=== PATIENT | female | born 1955 | race Caucasian/White ===

== ENCOUNTER 2020-07-21 15:27 | Outpatient (REF) | payer SELFPAY | END 2020-07-21 15:28 | disposition home or self-care (01) | LOC: HO.BBR 15:27 | PROVIDERS: Visit Provider Internal Medicine Medical Oncology | DX: D75.1 Secondary polycythemia (principal) | CPT/HCPCS: 85018 ==

== ENCOUNTER → 2020-07-28 15:38 | Outpatient (BNV) | payer BC, SELFPAY | PROVIDERS: Visit Provider Internal Medicine Medical Oncology | DX: D75.1 Secondary polycythemia (principal) | CPT/HCPCS: 99213; 99214; 99443 ==

== ENCOUNTER 2020-10-20 15:33 | Outpatient (REF) | payer MEDICARE, SELFPAY | END 2020-10-20 15:34 | disposition home or self-care (01) | LOC: HO.BBR 15:33 | PROVIDERS: PCP Physician Assistant; Visit Provider Internal Medicine Medical Oncology | DX: D75.1 Secondary polycythemia (principal) | CPT/HCPCS: 36415; 85018; 99195 ==

== ENCOUNTER 2021-01-26 15:29 | Outpatient (REF) | payer MEDICARE, SELFPAY ==
[2021-01-26 15:49] LABS: MANUAL DIFF FLAG NO
[2021-01-26 15:51] LABS: Basophils Absolute Auto 0.1 X10*3/uL (0.0-0.2); Basophils Percent Auto 0.8 % (0-2); Eosinophils Absolute Auto 0.1 X10*3/uL (0.0-0.4); Eosinophils Percent Auto 0.8 % (0-4); Hematocrit 42.1 % (37-47); Hemoglobin 14.5 g/dl (12.0-16.0); Imm Gran Abs Auto 0.08 X10*3/uL (0.00-0.03); Imm Gran Pct Auto 0.6 % (0.0-0.4); Lymphocytes Absolute Auto 3.1 X10*3/uL (1.2-4.9); Lymphocytes Percent Auto 22.2 % (20-40); Mean Corpuscular HGB Conc 34.4 g/dl (31.0-35.0); Mean Corpuscular Hemoglobin 33.1 pg (27.0-33.0); Mean Corpuscular Volume 96.1 fL (80-98); Mean Platelet Volume 9.6 fL (9.4-12.3); Monocytes Percent Auto 6.9 % (2-11); Neutrophils Absolute Auto 9.5 X10*3/uL (2.0-8.3); Neutrophils Percent Auto 68.7 % (45-73); Platelet Count 335 X10*3/uL (160-400); Red Blood Count 4.38 X10*6/uL (4.20-5.50); Red Cell Distribution Width 12.5 % (11.0-16.0); White Blood Count 13.8 X10*3/uL (4.8-10.8)
[2021-01-26 16:20] LABS: Alanine Aminotransferase 11 U/L (0-31); Albumin Level 4.1 g/dL (3.5-5.0); Alkaline Phosphatase 109 U/L (39-117); Anion Gap 15 (12-20); Aspartate Amino Transferase 15 U/L (5-31); Bilirubin Total 0.5 mg/dL (0.0-1.0); Blood Urea Nitrogen 12 mg/dL (9-16); Calcium 9.4 mg/dL (8.4-10.2); Carbon Dioxide 23 mmol/L (22-29); Chloride 104 mmol/L (96-108); Estimated Glomerular Filt Rate > 60; Glucose Random 130 mg/dL (60-115); Iron 92 mcg/dL (30-160); Percent Iron Saturation 29 % (15-50); Potassium 3.6 mmol/L (3.3-5.1); Sodium 138 mmol/L (135-145); Total Iron Binding Capacity 322 mcg/dL (228-428); Total Protein 6.8 g/dL (6.5-8.0); Unsaturated Iron Binding 230 ug/dL
[2021-01-26 16:40] LABS: Ferritin 73 ng/mL (10-250)
== END 2021-01-26 15:30 | disposition home or self-care (01) ==
LOC: HO.BBR 15:29
PROVIDERS: PCP Physician Assistant; Visit Provider Internal Medicine Medical Oncology
DX: D75.1 Secondary polycythemia (principal)
CPT/HCPCS: 36415; 80053; 82728; 83540; 85014; 85018; 85025; 99195

== ENCOUNTER 2021-05-04 15:20 | Outpatient (REF) | payer MEDICARE, SELFPAY | END 2021-05-04 15:21 | disposition home or self-care (01) | LOC: HO.BBR 15:20 | PROVIDERS: PCP Physician Assistant; Visit Provider Internal Medicine Medical Oncology | DX: D75.1 Secondary polycythemia (principal) | CPT/HCPCS: 85018; 99195 ==

== ENCOUNTER 2021-08-10 08:46 | Outpatient (REF) | payer MEDICARE, SELFPAY | END 2021-08-10 08:47 | disposition home or self-care (01) | LOC: HO.BBR 08:46 | PROVIDERS: Visit Provider Internal Medicine Medical Oncology | DX: D75.1 Secondary polycythemia (principal); I10 Essential (primary) hypertension; M47.14 Other spondylosis with myelopathy, thoracic region | CPT/HCPCS: 85018; 99195 ==

== ENCOUNTER 2021-11-09 15:31 | Outpatient (REF) | payer MEDICARE, SELFPAY | END 2021-11-09 15:32 | disposition home or self-care (01) | LOC: HO.BBR 15:31 | PROVIDERS: Visit Provider Internal Medicine Medical Oncology | DX: D75.1 Secondary polycythemia (principal) | CPT/HCPCS: 85018; 99195 ==

== ENCOUNTER 2022-05-17 15:02 | Outpatient (REF) | payer MEDICARE, SELFPAY | END 2022-05-17 15:03 | disposition home or self-care (01) | LOC: HO.BBR 15:02 | PROVIDERS: Visit Provider Internal Medicine Medical Oncology | DX: D75.1 Secondary polycythemia (principal) | CPT/HCPCS: 85018; 99195 ==

== ENCOUNTER 2022-09-04 12:01 | Outpatient (REF) | payer MEDICARE, SELFPAY | END 2022-09-04 12:02 | disposition home or self-care (01) | LOC: HO.BBR 12:01 | PROVIDERS: PCP Physician Assistant; Visit Provider Internal Medicine Medical Oncology | DX: D75.1 Secondary polycythemia (principal) | CPT/HCPCS: 85018 ==

== ENCOUNTER 2022-12-03 13:44 | Outpatient (REF) | payer MEDICARE, SELFPAY | END 2022-12-03 13:45 | disposition home or self-care (01) | LOC: HO.BBR 13:44 | PROVIDERS: PCP Physician Assistant; Visit Provider Internal Medicine Medical Oncology | DX: D75.1 Secondary polycythemia (principal) | CPT/HCPCS: 85014; 85018; 99195 ==

== ENCOUNTER 2023-01-01 11:49 | Outpatient (REF) | payer MEDICARE, SELFPAY ==
--- NOTE | ~2023-01-01 | MM_ITS ---
EXAMINATION: MM SCREENING DIGITAL BREAST TOMOSYNTHESIS, BILATERAL CLINICAL INFORMATION: Screening. Asymptomatic. The lifetime risk of breast cancer based on the Tyrer-Cuzick Model is 5%. COMPARISON: Mammography: 11/19/2018, 10/10/2017, 10/04/2016 TECHNIQUE: Digital breast tomosynthesis is performed in both the craniocaudal and mediolateral oblique views along with computer-aided detection (CAD). Synthesized 2D images are generated from the tomosynthesis. FINDINGS: There are scattered areas of fibroglandular density (ACR BI-RADS breast composition Category b). There are no significant masses, abnormal calcifications, or other abnormalities. Parenchymal pattern is similar to prior studies. There is no developing density or architectural abnormality. The axilla and skin contours are unremarkable. No significant changes. MM/MM tomosynthesis screening BI IMPRESSION: No mammographic evidence of malignancy. ASSESSMENT: BI-RADS 1: Negative RECOMMENDATION: Routine annual mammography screening. This patient's information was entered into a reminder system with a target due date for their next mammogram.
== END 2023-01-01 11:50 | disposition home or self-care (01) ==
LOC: HO.MAMMO 11:49
PROVIDERS: PCP Physician Assistant; Visit Provider Physician Assistant
DX: Z12.31 Encounter for screening mammogram for malignant neoplasm of breast (principal)
CPT/HCPCS: 77063; 77067

== ENCOUNTER → 2023-02-04 14:42 | Outpatient (BNVA) | payer MEDICARE, SELFPAY | PROVIDERS: Visit Provider Physician Assistant | DX: Z12.11 Encounter for screening for malignant neoplasm of colon (principal); K52.9 Noninfective gastroenteritis and colitis, unspecified; R10.32 Left lower quadrant pain | CPT/HCPCS: 99202 ==

== ENCOUNTER 2023-02-06 12:49 | Outpatient (REF) | payer MEDICARE, SELFPAY ==
--- NOTE | ~2023-02-06 | US_ITS ---
EXAMINATION: US THYROID CLINICAL INFORMATION: Prior abnormal imaging. COMPARISON: None available. TECHNIQUE: Linear transducer grayscale and color Doppler examination with attention to the region of the thyroid. FINDINGS: SIZE: Measurements of the thyroid lobes and nodules are given in sagittal, anteroposterior and transverse dimensions respectively. Right Thyroid Lobe: 4.2 x 1.6 x 2.2 cm, volume 7.8 mL. Parenchyma: The gland echotexture is homogeneous. Thyroid vascularity is normal. Left Thyroid Lobe: 4.8 x 1.2 x 1.6 cm, volume 4.6 mL. Parenchyma: The gland echotexture is homogeneous. Thyroid vascularity is normal. Isthmus: 0.6 cm in maximum AP dimension. No significant thyroid nodule. NODES: No lymphadenopathy is seen in the tissue surrounding the thyroid gland. US/US thyroid IMPRESSION: No significant thyroid nodule. ACR TI-RADS RECOMMENDATION REFERENCE: Ultrasound-guided fine-needle aspiration, followup ultrasound, no further follow up. * TR1 (0 point) and TR2 (2 points): No FNA or follow up. * TR3 (3 points): FNA if more than or equal to 2.5 cm in maximum dimension, followup ultrasound in 1, 3 and 5 years if 1.5 to 2.4 cm in maximum dimension. * TR4 (4-6 points): FNA if more than or equal to 1.5 cm in maximum dimension, followup ultrasound in 1, 2, 3 and 5 years if 1 to 1.4 cm in maximum dimension. * TR5 (more than or equal to 7 points): FNA if more than or equal to 1 cm in maximum dimension, followup ultrasound every year for 5 years if 0.5 to 0.9 cm in maximum dimension. * TR3, TR4 or TR5 nodules that are below the size threshold for followup receive no follow up.
== END 2023-02-06 12:50 | disposition home or self-care (01) ==
LOC: HO.US 12:49
PROVIDERS: PCP Physician Assistant; Visit Provider Physician Assistant
DX: E04.1 Nontoxic single thyroid nodule (principal); C06.9 Malignant neoplasm of mouth, unspecified; M54.2 Cervicalgia
CPT/HCPCS: 76536

== ENCOUNTER 2023-03-04 13:47 | Outpatient (REF) | payer MEDICARE, SELFPAY | END 2023-03-04 13:48 | disposition home or self-care (01) | LOC: HO.BBR 13:47 | PROVIDERS: PCP Physician Assistant; Visit Provider Internal Medicine Medical Oncology | DX: D75.1 Secondary polycythemia (principal) | CPT/HCPCS: 85018; 99195 ==

== ENCOUNTER 2023-03-12 11:42 | Outpatient (AMB) | payer MEDICARE, SELFPAY ==
[2023-03-12 11:46] VITALS: BP 128/70; PULSE 78; O2SAT 97; BMI 27.5
--- NOTE | 2023-03-12 11:46 | MHC.PC.OV ---
Vital Signs 03/12/23 11:46 Height 5 ft Weight 141 lb BMI 27.5 BP 128/70 Blood Pressure Location Lt brachial Position Sitting Pulse 78 Pulse Source Pulse Oximeter Temp Source Skin Pulse Oximetry (%) 97 Oxygen Delivery Method Room Air Intake Visit Reasons: diverticulitis F/U Computational Sciences Professor Required: No Allergies latex [LATEX] Allergy (Unknown, Verified 03/12/23 11:49) HIVES/RASH morphine [MORPHINE] Allergy (Unknown, Verified 03/12/23 11:49) HIVES, rash powder in latex gloves Allergy (Unknown, Uncoded 03/12/23 11:49) rash Tobacco use date assessed: 11/21/22 Dental Screening Dental Screen Date: 03/12/23 Did you have a dental visit in the last 12 months?: Yes Did you have a dental problem in the last 6 months where you did not have access to dental care?: No Was dental information given to patient?: Patient has dentist HPI HPI Comments History of Present Illness Details 67-year-old female past medical history significant for lumbar disc disease and with rest cytosis, osteopenia hypertension, anxiety and diverticulitis. Patient of Leopoldo Agrawal, patient presents today for emergency room follow-up was seen at [facility] on 02/27/2023 for left lower quadrant abdominal pain white blood cells elevated 14.48, other lab work unremarkable. Patient was treated with Augmentin for diverticulitis flare. Review of the notes patient has been seen by Gastroenterology in the past for this and was treated with Cipro and Flagyl good effect. Patient states started probiotic. Denies abdominal pain, nauseau, vomitting, constipation and diarrhea. Patient follow with [facility] for oral cancer, Patient states surgery scheduled for 03/21/23. Patient reports cut down to 4 cigarettes a day, to requesting to have a nicotine patch prescribed for following her oral surgery. 7mg transdermal nicotine patches prescribed as requested by patient x2 weeks. [facility] Medical History (Updated 02/18/23 @ 13:46 by Ramon Agrawal PA-C) Diverticulitis HTN (hypertension) Nicotine dependence, cigarettes, uncomplicated Osteopenia (~2015) Polycythemia Surgical History History of lumbar laminectomy History of mandibular surgery History of total left hip replacement Family History Father Diabetes HTN (hypertension) Mother HTN (hypertension) Asthma Sister Afib CVA (cerebral vascular accident) Social History Household Members: Family and Children Housing: House Are you a primary children's zoo caretaker to a significant other at home: No Do you presently have visiting nurse or other home services: No Alcohol intake: current Alcohol intake frequency: a few times a week Alcohol type: beer Patient Tobacco Use Status: Current everyday Tobacco user Tobacco use type: Cigarette Cigarette Packs Per Day: 1 Cigarettes Per Day: 10 e-Cigarette/Vaping Use: Never Used Second Hand Smoke Exposure: Yes service: No Current occupational status: employed 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 How often do you have a drink containing alcohol?: Never 2. How many drinks containing alcohol do you have on a typical day when you are drinking?: 1 or 2 3. How often do you have six or more drinks on one occasion?: Never Total Score: 0 MARY-7 AMB Questionnaire MARY-7 Date MARY - 7 assessed: 11/21/22 Source: Developed by Drs. Amadou Weber, Cecille Oshea, Tan Bello and colleagues, with an educational kiel from [employer]. Review of Systems Const Denies chills, Denies fatigue, Denies fever(s) and Denies poor appetite Eyes Denies no additional complaints ENT Reports Normal hearing present Card Denies chest pain, Denies syncope, Denies rapid heart rate and Denies dyspnea Resp Denies cough and Denies dyspnea GI Denies change in stool character, Denies constipation, Denies diarrhea, Denies nausea and Denies vomiting Denies urinary frequency, Denies dysuria and Denies urinary urgency Neuro Reports Normal hearing present, Denies confusion and Denies syncope Psych Denies confusion Endo Denies fatigue Physical exam (Primary Care) Vital Signs: Oxygen Delivery Method Room Air 03/12/23 11:46 BMI result Body Mass Index 27.5 Tobacco/Smoking Status: Tobacco use Status Tobacco use date assessed 11/21/22 11/21/22 08:48 Patient Tobacco Use Status Current everyday Tobacco 11/21/22 08:48 Tobacco use type Cigarette 11/21/22 08:48 e-Cigarette/Vaping Use Never Used 11/21/22 08:48 Thrive Assessment: Date of Thrive Assessment Date Thrive assessed 11/21/22 11/21/22 08:48 Const General: No confusion Orientation/consciousness: No confusion HENMT Head: Yes normocephalic and Yes atraumatic Eyes Conjunctivae: conjunctivae normal Chest Chest palpation & inspection: normal inspection of the chest Resp Effort & Inspection: normal respiratory effort Auscultation: clear to auscultation bilaterally, no crackles, no rhonchi and no wheezes Cardio Rate: regular rate Rhythm: regular rhythm Heart sounds: S1 normal heart sound present and S2 normal heart sound present GI Inspection: Yes normal to inspection Neuro General: No confusion Cranial nerves: Yes Normal hearing present Extrem General: No edema Assessment and Plan Assessment & Plan (1) Diverticulitis: Code(s): K57.92 - Diverticulitis of intestine, part unspecified, without perforation or abscess without bleeding Plan: Patient denies any left lower quadrant abdominal pain at this time. (2) HTN (hypertension): Code(s): I10 - Essential (primary) hypertension Qualifiers: Hypertension type: primary hypertension Qualified Code(s): I10 - Essential (primary) hypertension Plan: Continue on lisinopril 10 mg daily. Follow low-salt diet and exercise. Blood pressure goal less 140/90. (3) Oral cancer: Code(s): C06.9 - Malignant neoplasm of mouth, unspecified Plan: Continue to follow with [facility]. Plan keep scheduled follow up with pcp. Medications: New nicotine 1 patch transdermal Q24H 14 ea 0RF Z71.6 - Tobacco abuse counseling Coding Level of Care Code Est Pt Level 4 (03505) Diagnoses Diverticulitis K57.92 HTN (hypertension) I10 Hypertension type: primary hypertension Oral cancer C06.9
== END 2023-03-12 14:17 | disposition home or self-care (01) ==
PROVIDERS: PCP Physician Assistant; Visit Provider Nurse Practitioner Family
DX: K57.92 Diverticulitis of intestine, part unspecified, without perforation or abscess without bleeding (principal); I10 Essential (primary) hypertension; C06.9 Malignant neoplasm of mouth, unspecified
CPT/HCPCS: 99214

== ENCOUNTER 2023-04-18 14:32 | Outpatient (AMB) | payer MEDICARE, SELFPAY ==
[2023-04-18 14:41] VITALS: BP 118/60; PULSE 85; RESP 16; O2SAT 98; BMI 27.8
--- NOTE | 2023-04-18 14:41 | A.OFFPC_ITS ---
Vital Signs 04/18/23 14:41 Height 5 ft Weight 142 lb 2 oz BMI 27.8 BP 118/60 Blood Pressure Location Lt brachial Position Sitting Respiration 16 Pulse 85 Pulse Source Pulse Oximeter Pulse Oximetry (%) 98 Oxygen Delivery Method Room Air Intake Visit Reasons: itchy on skin Intake Note: Pt is here for left arm itchy skin for about a month ago, pt feels the arm on fire. Pt has try triamcinolone acetonide cream 1% and it seems to work. Foundation Drill Operator Helper Required: No Accompanied by: Self / Same As Patient Allergies latex [LATEX] Allergy (Unknown, Verified 04/18/23 14:49) HIVES/RASH morphine [MORPHINE] Allergy (Unknown, Verified 04/18/23 14:49) HIVES, rash powder in latex gloves Allergy (Unknown, Uncoded 04/18/23 14:49) rash Tobacco use date assessed: 11/21/22 Fall risk assessment: No Falls in past year Last assessed Fall Risk: 04/18/23 Dental Screening Dental Screen Date: 04/18/23 Did you have a dental visit in the last 12 months?: Yes Did you have a dental problem in the last 6 months where you did not have access to dental care?: No Was dental information given to patient?: Patient has dentist HPI itchy on skin HPI Details Patient is a 67-year-old female here today for problem visit. She reports having left upper arm itchiness and burning over last several weeks. She reports her skin irritation is more notable when exposed to the sun. She does report several years ago having a bad sunburn that may have caused neuropathy. She has been using triamcinolone ointment which has been helping to reduce her itchiness and burning sensation over upper arm. Otherwise no rash noted. [facility] Medical History (Updated 04/18/23 @ 15:02 by Ramon Agrawal PA-C) Osteopenia (~2016) Nicotine dependence, cigarettes, uncomplicated Polycythemia Diverticulitis HTN (hypertension) Surgical History History of lumbar laminectomy History of total left hip replacement History of mandibular surgery Family History Father Diabetes HTN (hypertension) Mother HTN (hypertension) Asthma Sister Afib CVA (cerebral vascular accident) Social History Household Members: Family and Children Housing: House Are you a primary transitional care manager to a significant other at home: No Do you presently have visiting nurse or other home services: No Alcohol intake: current Alcohol intake frequency: a few times a week Alcohol type: beer Patient Tobacco Use Status: Current everyday Tobacco user Tobacco use type: Cigarette Cigarette Packs Per Day: 1 Cigarettes Per Day: 10 e-Cigarette/Vaping Use: Never Used Second Hand Smoke Exposure: Yes service: No Current occupational status: employed 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 Amadou Weber, Cecille Oshea, Tan Bello and colleagues, with an educational kiel from [employer]. Review of Systems Const Denies headache(s) Eyes Denies loss of vision ENT Denies vertigo, Denies dizziness, Denies headache(s) and Denies sore throat Card Denies chest pain, Denies leg edema and Denies lightheadedness Resp Denies cough, Denies hemoptysis and Denies wheezing GI Denies abdominal pain, Denies melena, Denies constipation, Denies diarrhea and Denies vomiting Denies urinary frequency, Denies dysuria and Denies urinary urgency Musc Denies arthralgias, Denies joint swelling, Denies numbness and Denies tingling Neuro Denies Abnormal speech present, Denies behavioral changes, Denies vertigo, Denies dizziness, Denies headache(s), Denies loss of vision, Denies memory loss, Denies numbness and Denies tingling Psych Denies anxiety, Denies behavioral changes, Denies depression, Denies memory loss and Denies panic attacks Erasmo/Lymph Denies easy bleeding and Denies easy bruising Aller/Immun Denies wheezing Physical exam (Primary Care) Vital Signs: Last Vital Signs Pulse 85 04/18/23 14:41 Resp 16 04/18/23 14:41 BP 118/60 04/18/23 14:41 Pulse Ox 98 04/18/23 14:41 Oxygen Delivery Method Room Air 04/18/23 14:41 BMI result Body Mass Index 27.8 Tobacco/Smoking Status: Tobacco use Status Tobacco use date assessed 11/21/22 04/18/23 14:51 Patient Tobacco Use Status Current everyday Tobacco 04/18/23 14:51 Tobacco use type Cigarette 04/18/23 14:51 e-Cigarette/Vaping Use Never Used 04/18/23 14:51 Thrive Assessment: Date of Thrive Assessment Date Thrive assessed 11/21/22 04/18/23 14:51 Const General: healthy appearing, no acute distress, alert and awake Nutritional Appearance: well nourished Orientation/consciousness: oriented to person, oriented to place and oriented to time HENMT Ears: TM's normal bilaterally General nose exam: Normal nasal mucous membranes and turbinates present Eyes Conjunctivae: conjunctivae normal Sclerae: sclerae normal Pupils: Equal, round and reactive pupils present Neck Neck: Yes no lymphadenopathy and Yes no JVD Thyroid: Thyroid normal Carotids: no bruits Resp Effort & Inspection: normal respiratory effort and not tachypneic Auscultation: no crackles, no rales, no rhonchi and no wheezes Cardio Rate: regular rate Rhythm: regular rhythm Heart sounds: no murmurs and normal S1 and S2 GI Palpation (GI): Soft to palpation, nontender, no hepatomegaly and no splenomegaly Auscultation: normal bowel sounds Skin General skin exam: no rashes or lesions noted and dry skin Neuro General: oriented to person, oriented to place and oriented to time Cranial nerves: Yes Equal, round and reactive pupils present Speech: No Abnormal speech present Gait exam (Neuro): Normal gait present Motor exam (neuro): no tremor noted Extrem Right upper extremity: full ROM Left upper extremity: full ROM Right lower extremity: full ROM; no edema Left lower extremity: full ROM; no edema Psych Mental Status: mental status grossly normal Speech and movement: Normal speech and movement present Affect: normal affect Attitude: cooperative Thought process: Normal thought process present Assessment and Plan Assessment & Plan (1) Solar urticaria: Code(s): L56.3 - Solar urticaria Plan: Patient's signs and symptoms most consistent with a solar uticaria / neuropathy . Will supply patient with topical steroid to use on localized area of concern. Orders: Referrals Gastroenterology Referral Z12.11 - Encounter for screening for malignant neoplasm of colon Medications: New betamethasone valerate 0.1% 1 appl topical DAILY 15 days PRN 45 grams 0RF skin irritation L56.3 - Solar urticaria Refilled lorazepam 0.5 mg PO BEDTIME 7 days PRN 7 tabs 0RF anxiety F41.9 - Anxiety disorder, unspecified Coding Level of Care Code Est Pt Level 3 (29208) Diagnoses Solar urticaria L56.3
== END 2023-04-18 15:29 | disposition home or self-care (01) ==
PROVIDERS: PCP Physician Assistant; Visit Provider Physician Assistant
DX: L56.3 Solar urticaria (principal)
CPT/HCPCS: 99213

== ENCOUNTER 2023-06-11 13:56 | Outpatient (REF) | payer MEDICARE, SELFPAY | END 2023-06-11 13:57 | disposition home or self-care (01) | LOC: HO.BBR 13:56 | PROVIDERS: PCP Physician Assistant; Visit Provider Internal Medicine Medical Oncology | DX: D75.1 Secondary polycythemia (principal) | CPT/HCPCS: 85018; 99195 ==

== ENCOUNTER 2023-06-25 08:27 | Outpatient (REF) | payer MEDICARE, SELFPAY ==
[2023-06-25 09:38] LABS: Hematocrit 37.4 % (37.0-47.0); Mean Corpuscular HGB Conc 32.1 g/dl (31.0-35.0); Mean Corpuscular Hemoglobin 29.8 pg (27.0-33.0); Mean Corpuscular Volume 92.8 fL (80.0-98.0); Platelet Count 505 X10*3/uL (160-400); Red Blood Count 4.03 X10*6/uL (4.20-5.50); Red Cell Distribution Width 13.2 % (11.0-16.0); White Blood Count 10.9 X10*3/uL (4.8-10.8)
[2023-06-25 10:04] LABS: Creatinine Urine 100.02 mg/dL; Microalbum/Creatinine Ratio Ur 5.9 ug/mg cr (<30)
[2023-06-25 10:06] LABS: Alanine Aminotransferase 11 U/L (0-31); Albumin Level 3.7 g/dL (3.5-5.0); Alkaline Phosphatase 103 U/L (39-117); Anion Gap 9 (12-20); Aspartate Amino Transferase 15 U/L (5-31); Bilirubin Total 0.3 mg/dL (0.0-1.0); Blood Urea Nitrogen 11 mg/dL (9-16); Calcium 9.3 mg/dL (8.4-10.2); Carbon Dioxide 27 mmol/L (22-29); Chloride 108 mmol/L (96-108); Cholesterol 174 mg/dL (<200); Estimated Glomerular Filt Rate > 60; Glucose Fasting 93 mg/dL (60-99); HDL Cholesterol 37 mg/dL (>40); LDL Cholesterol Calculated 116 mg/dL (<100); Potassium 3.7 mmol/L (3.3-5.1); Sodium 140 mmol/L (135-145); Total Protein 6.9 g/dL (6.5-8.0); Triglycerides 106 mg/dL (<150)
== END 2023-06-25 08:28 | disposition home or self-care (01) ==
LOC: HO.LAB 08:27
PROVIDERS: PCP Physician Assistant; Visit Provider Physician Assistant
DX: I10 Essential (primary) hypertension (principal)
CPT/HCPCS: 36415; 80053; 80061; 82043; 82570; 85027

== ENCOUNTER 2023-07-01 14:01 | Outpatient (AMB) | payer MEDICARE, SELFPAY ==
[2023-07-01 14:12] VITALS: BP 150/70; PULSE 80; O2SAT 97; BMI 29.1
--- NOTE | 2023-07-01 14:12 | MHC.PC.OV ---
Vital Signs 07/01/23 14:12 Height 5 ft Weight 149 lb 2 oz BMI 29.1 BP 150/70 H Blood Pressure Location Lt brachial Position Sitting Pulse 80 Pulse Source Pulse Oximeter Pulse Oximetry (%) 97 Oxygen Delivery Method Room Air Intake Visit Reasons: f/u HTN Toll Gate Tender Required: No Accompanied by: Self / Same As Patient Allergies latex [LATEX] Allergy (Unknown, Verified 07/01/23 14:38) HIVES/RASH morphine [MORPHINE] Allergy (Unknown, Verified 07/01/23 14:38) HIVES, rash powder in latex gloves Allergy (Unknown, Uncoded 06/06/23 08:31) rash Medication List - Last Reconciled 07/01/23 by Ramon Agrawal PA-C lisinopril 10 mg PO DAILY nicotine (Nicoderm CQ) 1 patch transdermal Q24H Tobacco use date assessed: 11/21/22 Fall risk assessment: No Falls in past year Last assessed Fall Risk: 07/01/23 Dental Screening Dental Screen Date: 07/01/23 Did you have a dental visit in the last 12 months?: Yes Did you have a dental problem in the last 6 months where you did not have access to dental care?: No Was dental information given to patient?: Patient has dentist HPI f/u HTN HPI Details Patient is a 67 year female here today for routine annual physical t.? Patient has a past medical history significant for hypertension, lumbar disc disease, tobacco use disorder, thrombocytosis.? Invasive carcinoma the mouth-- Undergone treatment. Had a scratchy throat and returned to her oral surgeon the other day and has gotten the scope. She reports her was a small white down the there somewhat concerned about him will be getting a biopsy in near future. .. ?Tobacco use : Unfortunately still smoking very little though understand she really needs to completely quit, PLAN: Supply patient with nicotine replacement gum .. Hypertension:? Continues on lisinopril 10 mg with good effect on her blood pressure.? Patient's blood pressure is slightly elevated today in office though please this is due to being somewhat anxious about finding in her throat., Otherwise denies any chest discomfort, headaches or vision issues [facility] Medical History (Updated 07/02/23 @ 07:43 by Ramon Agrawal PA-C) Solar urticaria Osteopenia (~2015) Nicotine dependence, cigarettes, uncomplicated Polycythemia Diverticulitis HTN (hypertension) Surgical History History of lumbar laminectomy History of total left hip replacement History of mandibular surgery Family History Father Diabetes HTN (hypertension) Mother HTN (hypertension) Asthma Sister Afib CVA (cerebral vascular accident) Social History Household Members: Family and Children Housing: House Are you a primary rn care transition to a significant other at home: No Do you presently have visiting nurse or other home services: No Alcohol intake: current Alcohol intake frequency: a few times a week Alcohol type: beer Patient Tobacco Use Status: Current everyday Tobacco user Tobacco use type: Cigarette Cigarette Packs Per Day: 1 Cigarettes Per Day: 10 e-Cigarette/Vaping Use: Never Used Second Hand Smoke Exposure: Yes service: No Current occupational status: employed 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 Amadou Weber, Cecille Oshea, Tan Bello and colleagues, with an educational kiel from [employer]. Review of Systems Const Denies headache(s) Eyes Denies loss of vision ENT Denies vertigo, Denies dizziness, Denies headache(s) and Denies sore throat Card Denies chest pain, Denies leg edema and Denies lightheadedness Resp Denies cough, Denies hemoptysis and Denies wheezing GI Denies abdominal pain, Denies melena, Denies constipation, Denies diarrhea and Denies vomiting Denies urinary frequency, Denies dysuria and Denies urinary urgency Musc Denies arthralgias, Denies joint swelling, Denies numbness and Denies tingling Neuro Denies Abnormal speech present, Denies behavioral changes, Denies vertigo, Denies dizziness, Denies headache(s), Denies loss of vision, Denies memory loss, Denies numbness and Denies tingling Psych Denies anxiety, Denies behavioral changes, Denies depression, Denies memory loss and Denies panic attacks Erasmo/Lymph Denies easy bleeding and Denies easy bruising Aller/Immun Denies wheezing Physical exam (Primary Care) Vital Signs: Last Vital Signs Pulse 80 07/01/23 14:12 BP 150/70 H 07/01/23 14:12 Pulse Ox 97 07/01/23 14:12 Oxygen Delivery Method Room Air 07/01/23 14:12 BMI result Body Mass Index 29.1 Tobacco/Smoking Status: Tobacco use Status Tobacco use date assessed 11/21/22 07/01/23 14:15 Patient Tobacco Use Status Current everyday Tobacco 07/01/23 14:15 Tobacco use type Cigarette 07/01/23 14:15 e-Cigarette/Vaping Use Never Used 07/01/23 14:15 Are you ready to quit: Yes Tobacco cessation counseling provided: Yes Items discussed: Nicotine replacement Relapse Prevention: discussed the importance of a supportive environment, discussed negative mood or depression after quitting, weight gain after smoking is common and discussed dietary, exercise and/or lifestyle changes Number of minutes spent counselin CPT code: 48617 - 4-10 Minutes Thrive Assessment: Date of Thrive Assessment Date Thrive assessed 11/21/22 07/01/23 14:15 Const General: healthy appearing, no acute distress, alert and awake Nutritional Appearance: well nourished Orientation/consciousness: oriented to person, oriented to place and oriented to time HENMT Ears: TM's normal bilaterally General nose exam: Normal nasal mucous membranes and turbinates present Eyes Conjunctivae: conjunctivae normal Sclerae: sclerae normal Pupils: Equal, round and reactive pupils present Neck Neck: Yes no lymphadenopathy and Yes no JVD Thyroid: Thyroid normal Carotids: no bruits Resp Effort & Inspection: normal respiratory effort and not tachypneic Auscultation: no crackles, no rales, no rhonchi and no wheezes Cardio Rate: regular rate Rhythm: regular rhythm Heart sounds: no murmurs and normal S1 and S2 GI Palpation (GI): Soft to palpation, nontender, no hepatomegaly and no splenomegaly Auscultation: normal bowel sounds Skin General skin exam: no rashes or lesions noted and dry skin Neuro General: oriented to person, oriented to place and oriented to time Cranial nerves: Yes Equal, round and reactive pupils present Speech: No Abnormal speech present Gait exam (Neuro): Normal gait present Motor exam (neuro): no tremor noted Extrem Right upper extremity: full ROM Left upper extremity: full ROM Right lower extremity: full ROM; no edema Left lower extremity: full ROM; no edema Psych Mental Status: mental status grossly normal Speech and movement: Normal speech and movement present Affect: normal affect Attitude: cooperative Thought process: Normal thought process present Office Procedures Flu Questionnaire Does the patient have a severe egg allergy?: No Does the patient have severe life threatening allergies?: No Does the patient have a fever or illness today?: No Has the patient ever had Guillain-[place] Syndrome?: No Has the patient ever had any past reaction to a flu shot?: No Immunizations flu vacc [id number] 6mos up(PF) 60 mcg(15 mcgx4)/0.5 mL IM syringe Performing Provider: Ramon Agrawal PA-C [facility] Administered by: TRE Arias on 07/01/23 14:23 Dose Route Admin Location Dispensed Lot Number Expiration Date NDC Certified Personal Chef 0.5 mL IM Right Deltoid 0.5 mL [id number] 02/09/24 [id number] [employer] VIS Given Date VIS Provided VIS Publication Date 07/01/23 Single Vaccine 21 Eligibility Eligibility Date Funding Source Not [facility] Eligible 07/01/23 Private Assessment and Plan Assessment & Plan (1) HTN (hypertension): Code(s): I10 - Essential (primary) hypertension Qualifiers: Hypertension type: primary hypertension Qualified Code(s): I10 - Essential (primary) hypertension Plan: Blood pressure slightly elevated today in office. She has been anxious about recurrence of her oral cancer. Continue on lisinopril 10 mg daily. Follow low-salt diet and exercise. Blood pressure goal less 140/90. (2) Oral cancer: Code(s): C06.9 - Malignant neoplasm of mouth, unspecified Plan: Biopsy positive for invasive carcinoma. Has underwent surgery. Continue to follow with [facility]. (3) Anxiety: Code(s): F41.9 - Anxiety disorder, unspecified Plan: She is a bit anxious today due to new findings in her throat status post throat cancer surgery. She is due for biopsy in near future (4) Erythrocytosis: Code(s): D75.1 - Secondary polycythemia Plan: Continues to follow hematology. Has underwent therapeutic phlebotomies (5) Nicotine dependence, cigarettes, uncomplicated: Code(s): F17.210 - Nicotine dependence, cigarettes, uncomplicated Plan: Patient understands she needs to quit smoking completely. She has found very difficult to do so. Will again try nicotine replacement. Is not interested in any medication to quit smoking at this time. Plan keep scheduled follow up with pcp. Orders: Orders Influenza [id number] Immunization 07/01/23 Z23 - Encounter for immunization Comprehensive [place]. Panel Fast 07/01/23 I10 - Essential (primary) hypertension Lipid Panel 07/01/23 I10 - Essential (primary) hypertension Microalbumin, Random (w Creat) 07/01/23 I10 - Essential (primary) hypertension Complete Blood Count no Diff 07/01/23 D75.1 - Secondary polycythemia Medications: New nicotine (polacrilex) 2 mg buccal Q2H 15 days PRN 110 ea 0RF nicotine cravings F17.200 - Nicotine dependence, unspecified, uncomplicated, F17.210 - Nicotine dependence, cigarettes, uncomplicated Coding Level of Care Code Est Pt Level 4 (69510) Diagnoses Primary hypertension I10 Hypertension type: primary hypertension Oral cancer C06.9 Anxiety F41.9 Erythrocytosis D75.1 Nicotine dependence, cigarettes, uncomplicated F17.210 Additional Codes Vital Signs *Quality* - CPT code: 89320 - 4-10 Minutes ([id number])
== END 2023-07-01 15:04 | disposition home or self-care (01) ==
PROVIDERS: PCP Physician Assistant; Visit Provider Physician Assistant
DX: Z23 Encounter for immunization (principal)
CPT/HCPCS: 90471; 90686; 99214; 99406

== ENCOUNTER 2023-09-11 14:55 | Outpatient (REF) | payer MEDICARE, SELFPAY | END 2023-09-11 14:56 | disposition home or self-care (01) | LOC: HO.BBR 14:55 | PROVIDERS: PCP Physician Assistant; Visit Provider Internal Medicine Medical Oncology | DX: D75.1 Secondary polycythemia (principal) | CPT/HCPCS: 85018; 99195 ==

== ENCOUNTER 2023-12-10 14:03 | Outpatient (REF) | payer MEDICARE, SELFPAY | END 2023-12-10 14:04 | disposition home or self-care (01) | LOC: HO.BBR 14:03 | PROVIDERS: PCP Physician Assistant; Visit Provider Internal Medicine Medical Oncology | DX: D75.1 Secondary polycythemia (principal) | CPT/HCPCS: 85018 ==

== ENCOUNTER 2023-12-31 12:53 | Outpatient (AMB) | payer MEDICARE, SELFPAY ==
[2023-12-31 13:07] VITALS: BP 98/74; PULSE 78; O2SAT 96; BMI 24.7
--- NOTE | 2023-12-31 13:07 | MHC.PC.OV ---
Vital Signs 12/31/23 13:07 Height 5 ft 3 in Weight 139 lb 4 oz BMI 24.7 BP 98/74 Blood Pressure Location Lt brachial Position Sitting Pulse 78 Pulse Source Pulse Oximeter Pulse Oximetry (%) 96 Oxygen Delivery Method Room Air Intake Visit Reasons: Annual exam Inventory Control Specialist Required: No Accompanied by: Self / Same As Patient Allergies latex [LATEX] Allergy (Unknown, Verified 12/31/23 13:29) HIVES/RASH morphine [MORPHINE] Allergy (Unknown, Verified 12/31/23 13:29) HIVES, rash powder in latex gloves Allergy (Unknown, Uncoded 12/31/23 13:12) rash Medication List - Last Reconciled 12/31/23 by Ramon Agrawal PA-C ibuprofen 400 mg PO Q6H lisinopril 10 mg PO DAILY Tobacco use date assessed: 12/31/23 Fall risk assessment: No Falls in past year Last assessed Fall Risk: 12/31/23 Dental Screening Dental Screen Date: 12/31/23 Did you have a dental visit in the last 12 months?: Yes Did you have a dental problem in the last 6 months where you did not have access to dental care?: No Was dental information given to patient?: Patient has dentist HPI Annual exam HPI Details Patient is a 68 year female here today for routine annual physical.? Patient has a past medical history significant for hypertension, lumbar disc disease, tobacco use disorder, thrombocytosis. Concerns--> recently has been dealing with an upper respiratory illness. ? 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 Has some lingering side effects from the radiation such as mouth pain and decreased taste and smell. Is followed by [facility] . Has upcoming PET scan to evaluate for any recurrence. .. ?former smoker- Per patient quit smoking in Jul 2023 .. Hypertension:? Continues on lisinopril 10 mg with good effect on her blood pressure.? Blood pressure acceptable today in office., Otherwise denies any chest discomfort, headaches or vision issues Colon cancer screening: willing to do cologaurd. Vaccine: Up-to-date with COVID vaccine, tetanus vaccine shingles and pneumonia vaccine Mammogram: Needs Mammo- Has PET scan coming up due to her active invasive carcinoma of the mouth. Will hold off on mammogram for now. Laboratory Tests 06/06/23 06/25/23 12/16/23 08:28 08:59 12:08 WBC 10.9 H RBC 4.03 L 4.06 L Hgb 12.5 Plt Count 471 H 505 H PFSH Medical History Solar urticaria Osteopenia (~2016) Nicotine dependence, cigarettes, uncomplicated Polycythemia Diverticulitis HTN (hypertension) Surgical History History of lumbar laminectomy History of total left hip replacement History of mandibular surgery Family History Father Diabetes HTN (hypertension) Mother HTN (hypertension) Asthma Sister Afib CVA (cerebral vascular accident) Social History (Updated 12/31/23 @ 13:36 by Ramon Agrawal PA-C) Household Members: Family and Children Housing: House Are you a primary rn critical care to a significant other at home: No Do you presently have visiting nurse or other home services: No Alcohol intake: current Alcohol intake frequency: a few times a week Alcohol type: beer Patient Tobacco Use Status: Former Tobacco user Quit Date: 07/2023 Cigarettes Per Day: 10 e-Cigarette/Vaping Use: Never Used Second Hand Smoke Exposure: No service: No Current occupational status: employed 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 1. Little interest or pleasure in doing things: not at all 2. Feeling down, depressed, or hopeless: not at all 3. Trouble falling or staying asleep, or sleeping too much: not at all 4. Feeling tired or having little energy: not at all 5. Poor appetite or overeating: not at all 6. Feeling bad about yourself - or that you are a failure or have let yourself or your family down: not at all 7. Trouble concentrating on things, such as reading the newspaper or watching television: not at all 8. Moving or speaking so slowly that other people could have noticed. Or the opposite - being so fidgety or restless that you have been moving around a lot more than usual: not at all 9. Thoughts that you would be better off or of hurting yourself in some way: not at all Total score: 0 Depression Screening Interpretation: Negative Depression Screening Done: Yes [id number] - PHQ-9 Billing: Yes Source: Developed by Drs. Amadou Weber, Cecille Oshea, Tan Bello and colleagues, with an educational kiel from [employer]. Thrive Questionnaire Date Thrive assessed: 12/31/23 I am a: Patient What is your living situation today?: I have a steady place to live Within the past 12 months, did the food you bought not last and you didn't have the money to get more?: Never true Within the past 12 months, did you worry whether your food would run out before you got money to buy more?: Never true Do you have trouble paying for medicines?: No Do you have trouble getting transportation to medical appointments?: No Do you have trouble paying your heating and electricity bill?: No Do you have trouble taking care of your child, family member or friend?: No Do you have trouble with day-to-day activities such as bathing, preparing meals, shopping, managing finances, etc.?: No Are you currently unemployed and looking for a job?: No Are you interested in more education?: No Please select the resources that you would like help with: None Currently or been in a relationship where the following occur: no concerns reported THRIVE Score: 0 AUDIT C Alcohol Use Questionnaire (AUDIT-C) 1. How often do you have a drink containing alcohol?: Never 2. How many drinks containing alcohol do you have on a typical day when you are drinking?: 1 or 2 3. How often do you have six or more drinks on one occasion?: Never Total Score: 0 MARY-7 AMB Questionnaire MARY-7 Date MARY - 7 assessed: 12/31/23 Feeling nervous, anxious, or on edge: 0 = Not at all Not being able to stop or control worryin = Not at all Worrying too much about different things: 0 = Not at all Trouble relaxin = Not at all Being so restless that it is hard to sit still: 0 = Not at all Becoming easily annoyed or irritable: 0 = Not at all Feeling afraid as if something awful might happen: 0 = Not at all Total MARY-7 score (0-4 normal; 5-9 mild; 10-14 moderate; 15-21 severe): 0 Source: Developed by Drs. Amadou Weber, Cecille Oshea, Tan Bello and colleagues, with an educational kiel from [employer]. MARY-7 Assessment Billing MARY-7 Assessment Tool: MARY-7 Assessment 47294 Review of Systems Const Denies body aches, Denies chills, Denies excessive sweating, Denies fatigue, Denies fever(s) and Denies headache(s) Eyes Denies blurry vision ENT Denies dysphagia, Denies vertigo, Denies dizziness, Denies headache(s), Denies hearing loss and Denies tinnitus Card Denies chest pain, Denies chest pain with activity, Denies syncope, Denies irregular heart rhythm and Denies dyspnea Resp Denies chest congestion, Denies cough, Denies hemoptysis, Denies dyspnea and Denies wheezing GI Denies abdominal pain, Denies melena, Denies hematochezia, Denies coffee ground emesis, Denies dysphagia, Denies diarrhea, Denies nausea and Denies vomiting Denies urinary frequency, Denies dysuria, Denies urinary hesitancy and Denies urinary urgency Musc Denies arthralgias, Denies limited range of motion, Denies muscle cramps and Denies muscle weakness Skin/Breast Denies rash and Denies skin ulcer Neuro Denies Abnormal speech present, Denies confusion, Denies vertigo, Denies dizziness, Denies syncope, Denies headache(s), Denies memory loss and Denies seizure-like activity Psych Denies anxiety, Denies confusion, Denies depression, Denies memory loss, Denies panic attacks and Denies paranoia Endo Denies excessive sweating, Denies fatigue, Denies flushing, Denies polydipsia and Denies polyuria Aller/Immun Denies wheezing Physical exam (Primary Care) Vital Signs: Last Vital Signs Pulse 78 12/31/23 13:07 BP 98/74 12/31/23 13:07 Pulse Ox 96 12/31/23 13:07 Oxygen Delivery Method Room Air 12/31/23 13:07 BMI result Body Mass Index 24.7 Tobacco/Smoking Status: Tobacco use Status Tobacco use date assessed 12/31/23 12/31/23 13:18 Patient Tobacco Use Status Former Tobacco user 12/31/23 13:43 Tobacco use type 12/31/23 13:21 e-Cigarette/Vaping Use Never Used 12/31/23 13:36 PHQ-9: PHQ-9 Score PHQ-9: Total score 0 12/31/23 13:35 Depression Screening Interpretation: Negative Thrive Assessment: Date of Thrive Assessment Date Thrive assessed 12/31/23 12/31/23 13:18 Currently or been in a relationship where the following occur: no concerns reported Const General: cooperative, comfortable, no acute distress, alert and awake; No confusion Orientation/consciousness: oriented to person, oriented to place, patient oriented x3 and No confusion HENMT Head: Yes normocephalic Ears: external ears normal and TM's normal bilaterally Face and sinus: No sinus tenderness Mouth: Normal oral and palatal mucosa present and tongue normal Teeth and gingiva: dentition normal and gingiva normal Throat: Yes posterior oropharynx normal, Yes tonsils normal and Yes uvula midline Eyes Conjunctivae: conjunctivae normal Sclerae: sclerae normal Pupils: Equal, round and reactive pupils present EOM: EOMs intact bilaterally Direct Ophthalmoscopy: No no photophobia Neck Neck: Yes no lymphadenopathy, No tender and Yes no JVD Thyroid: Thyroid normal Carotids: no bruits Chest Chest palpation & inspection: no tenderness Resp Effort & Inspection: normal respiratory effort, no audible wheezes, not labored and no stridor Auscultation: no crackles, no rales, no rhonchi and no wheezes Cardio Jugular venous distension: no JVD Rate: regular rate, not bradycardic and not tachycardic Rhythm: regular rhythm Bruits: no carotid bruits Peripheral pulses: Peripheral pulses 2+ throughout GI Inspection: Yes normal to inspection, No abdominal wall ecchymosis and No visible herniation Palpation (GI): Soft to palpation, nontender, no guarding, not rigid and No hepatosplenomegaly present Auscultation: normoactive bowel sounds General: Yes no CVA tenderness Back/Spine/Pelvis Back: no CVA tenderness and No back tenderness Cervical Spine: cervical ROM normal Thoracic/Lumbar Spine: thoracic and lumbar spine normal to inspection, straight leg raise negative bilaterally, No thoraco-lumbar ROM limited and No lumbar spinal tenderness Skin Lesions: no lesions Rashes: no rashes Wounds: no wounds Neuro General: oriented to person, oriented to place, patient oriented x3, CN's II-XI intact bilaterally and No confusion Cranial nerves: Yes Equal, round and reactive pupils present and Yes Normal accommodation reflex present Cognition (Neuro): normal cognition Speech: No Abnormal speech present Gait exam (Neuro): Normal gait present Motor exam (neuro): 5/5 motor strength present throughout Extrem Right upper extremity: full ROM; no cyanosis Left upper extremity: full ROM; no cyanosis Right lower extremity: no edema Left lower extremity: no edema Psych Appearance: grossly normal Mental Status: mental status grossly normal Affect: normal affect Attitude: cooperative Thought process: Normal thought process present Assessment and Plan Assessment & Plan (1) Annual physical exam: Code(s): Z00.00 - Encounter for general adult medical examination without abnormal findings (2) HTN (hypertension): Code(s): I10 - Essential (primary) hypertension Qualifiers: Hypertension type: primary hypertension Qualified Code(s): I10 - Essential (primary) hypertension Plan: Blood pressure on low side today in office. She reports that home blood pressures have been stable. Continue on lisinopril 10 mg daily. Follow low-salt diet and exercise. Blood pressure goal less 140/90. (3) Oral cancer: Code(s): C06.9 - Malignant neoplasm of mouth, unspecified Plan: Biopsy positive for invasive carcinoma. Has underwent surgery with lymph node removal. Has recently undergone radiation. Continue to follow with [facility]. (4) Erythrocytosis: Code(s): D75.1 - Secondary polycythemia Plan: Continues to follow hematology. Has underwent therapeutic phlebotomies. Has quit smoking and does not need any therapeutic phlebotomies. (5) GERD (gastroesophageal reflux disease): Code(s): K21.9 - Gastro-esophageal reflux disease without esophagitis Qualifiers: Esophagitis presence: without esophagitis Qualified Code(s): K21.9 - Gastro-esophageal reflux disease without esophagitis Plan: Does report having GERD like symptoms as of recent. She attributes this to not having an appetite as a recently and has reduced oral intake. She is slowly regaining her appetite and anticipates GERD to get better. Will supply patient with temporary script for omeprazole 20 mg. (6) Bronchitis: Code(s): J40 - Bronchitis, not specified as acute or chronic Plan: Currently has an upper respiratory bronchitis infection, likely viral. Will treat conservatively for now. Offered chest x-ray though patient declines at this time. Medications: New albuterol sulfate 90 mcg/actuation 1 inh inhalation QID PRN 8.5 grams 0RF shortness of breath or wheezing 30 days J40 - Bronchitis, not specified as acute or chronic omeprazole 20 mg PO DAILY 30 caps 1RF 30 days J40 - Bronchitis, not specified as acute or chronic, K21.9 - Gastro-esophageal reflux disease without esophagitis Patient Instructions: Goal blood pressure to remain below 140/90 Barriers: Adherence to healthy eating habits and physical activity Coding Level of Care Code Est Pt Prev Care >65y(29547) Diagnoses Annual physical exam Z00.00 Primary hypertension I10 Hypertension type: primary hypertension Oral cancer C06.9 Erythrocytosis D75.1 Gastroesophageal reflux disease without esophagitis K21.9 Esophagitis presence: without esophagitis Bronchitis J40 Additional Codes MARY-7 Assessment Billing - MARY-7 Assessment Tool: MARY-7 Assessment 40529 ([id number])
== END 2023-12-31 14:02 | disposition home or self-care (01) ==
PROVIDERS: PCP Physician Assistant; Visit Provider Physician Assistant
DX: Z00.00 Encounter for general adult medical examination without abnormal findings (principal); I10 Essential (primary) hypertension; C06.9 Malignant neoplasm of mouth, unspecified; D75.1 Secondary polycythemia; K21.9 Gastro-esophageal reflux disease without esophagitis; J40 Bronchitis, not specified as acute or chronic
CPT/HCPCS: 99397

== ENCOUNTER 2024-02-25 09:49 | Outpatient (REF) | payer MEDICARE, SELFPAY | END 2024-02-25 09:50 | disposition home or self-care (01) | LOC: HO.MAMMO 09:49 | PROVIDERS: PCP Physician Assistant; Visit Provider Physician Assistant | DX: Z12.31 Encounter for screening mammogram for malignant neoplasm of breast (principal) | CPT/HCPCS: 77063; 77067 ==

== ENCOUNTER → 2024-02-25 10:00 | Outpatient (BNV) | payer MEDICARE, SELFPAY | PROVIDERS: PCP Physician Assistant; Visit Provider Radiology Diagnostic Radiology | DX: Z12.31 Encounter for screening mammogram for malignant neoplasm of breast (principal) | CPT/HCPCS: 77063; 77067 ==

== ENCOUNTER 2024-03-10 12:58 | Outpatient (REF) | payer MEDICARE, SELFPAY | END 2024-03-10 12:59 | disposition home or self-care (01) | LOC: HO.BBR 12:58 | PROVIDERS: PCP Physician Assistant; Visit Provider Internal Medicine Medical Oncology | DX: E83.110 Hereditary hemochromatosis (principal) | CPT/HCPCS: 85018; 99195 ==

== ENCOUNTER 2024-06-22 13:56 | Outpatient (AMB) | payer MEDICARE, SELFPAY ==
[2024-06-22 14:09] VITALS: BP 126/82; PULSE 68; O2SAT 98; BMI 26.8
--- NOTE | 2024-06-22 14:09 | MHC.PC.OV ---
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 Required: No Accompanied by: Self / Same As Patient Allergies latex [LATEX] Allergy (Unknown, Verified 06/22/24 14:12) HIVES/RASH morphine [MORPHINE] Allergy (Unknown, Verified 06/22/24 14:12) HIVES, rash powder in latex gloves Allergy (Unknown, Uncoded 06/22/24 14:12) rash Medication List - Last Reconciled 06/22/24 by Ramon Agrawal PA-C albuterol sulfate 90 mcg/actuation 1 inh inhalation QID PRN 30 days betamethasone valerate 0.1% 1 appl topical BID ibuprofen 400 mg PO Q6H lisinopril 10 mg PO DAILY Tobacco use date assessed: 12/31/23 Fall risk assessment: No Falls in past year Last assessed Fall Risk: 06/22/24 Dental Screening Dental Screen Date: 12/31/23 HPI Follow-up hypertension HPI Details Patient is a 69 year female here today for a follow-up.? Patient has a past medical history significant for hypertension, lumbar disc disease, tobacco use disorder, thrombocytosis. Concerns--> she continues to intermittent left upper arm pain/burning in itchiness sensation. She reports she has had this on and off past several years. She can not recall any injury to her arm though does recall 1 summer getting a very bad sunburn over her upper arm that may have caused this issue. She has use topical [id number] essential oils and creams which only temporary help her symptoms. She otherwise denies seeing any rashes during that time she has this upper arm pain. 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 Has some lingering side effects from the radiation such as mouth pain and decreased taste and smell. Is followed by [facility] for regular surveillance of malignancy recurrence .. ?former smoker- Per patient quit smoking in Jul 2023 .. Hypertension:? Continues on lisinopril 10 mg with good effect on her blood pressure.? Blood pressure acceptable today in office., Otherwise denies any chest discomfort, headaches or vision issues [facility] Medical History (Updated 06/23/24 @ 07:39 by Ramon Agrawal PA-C) Erythrocytosis Thyroid nodule Solar urticaria Osteopenia (~2016) Polycythemia HTN (hypertension) Surgical History History of lumbar laminectomy History of total left hip replacement History of mandibular surgery Family History Father Diabetes HTN (hypertension) Mother HTN (hypertension) Asthma Sister Afib CVA (cerebral vascular accident) Social History Household Members: Family and Children Housing: House Are you a primary home health aide caregiver to a significant other at home: No Do you presently have visiting nurse or other home services: No Alcohol intake: current Alcohol intake frequency: a few times a week Alcohol type: beer Patient Tobacco Use Status: Former Tobacco user Cigarettes Per Day: 10 e-Cigarette/Vaping Use: Never Used Second Hand Smoke Exposure: No service: No Current occupational status: employed 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 1. Little interest or pleasure in doing things: not at all 2. Feeling down, depressed, or hopeless: not at all 3. Trouble falling or staying asleep, or sleeping too much: not at all 4. Feeling tired or having little energy: not at all 5. Poor appetite or overeating: not at all 6. Feeling bad about yourself - or that you are a failure or have let yourself or your family down: not at all 7. Trouble concentrating on things, such as reading the newspaper or watching television: not at all 8. Moving or speaking so slowly that other people could have noticed. Or the opposite - being so fidgety or restless that you have been moving around a lot more than usual: not at all 9. Thoughts that you would be better off or of hurting yourself in some way: not at all Total score: 0 Depression Screening Interpretation: Negative Depression Screening Done: Yes 85542 - PHQ-9 Billing: Yes Source: Developed by Drs. Amadou Weber, Tan Carlos and colleagues, with an educational kiel from [employer]. Thrive Questionnaire Date Thrive assessed: 06/22/24 I am a: Patient What is your living situation today?: I have a steady place to live Within the past 12 months, did the food you bought not last and you didn't have the money to get more?: Never true Within the past 12 months, did you worry whether your food would run out before you got money to buy more?: Never true Do you have trouble paying for medicines?: No Do you have trouble getting transportation to medical appointments?: No Do you have trouble paying your heating and electricity bill?: No Do you have trouble taking care of your child, family member or friend?: No Do you have trouble with day-to-day activities such as bathing, preparing meals, shopping, managing finances, etc.?: No Are you currently unemployed and looking for a job?: No Are you interested in more education?: No Please select the resources that you would like help with: None THRIVE Score: 0 AUDIT C Alcohol Use Questionnaire (AUDIT-C) 1. How often do you have a drink containing alcohol?: Never 2. How many drinks containing alcohol do you have on a typical day when you are drinking?: 1 or 2 3. How often do you have six or more drinks on one occasion?: Never Total Score: 0 MARY-7 AMB Questionnaire MARY-7 Date MARY - 7 assessed: 06/22/24 Feeling nervous, anxious, or on edge: 0 = Not at all Not being able to stop or control worryin = Not at all Worrying too much about different things: 0 = Not at all Trouble relaxin = Not at all Being so restless that it is hard to sit still: 0 = Not at all Becoming easily annoyed or irritable: 0 = Not at all Feeling afraid as if something awful might happen: 0 = Not at all Total MARY-7 score (0-4 normal; 5-9 mild; 10-14 moderate; 15-21 severe): 0 Source: Developed by Cecille Irby Kurt Kroenke and colleagues, with an educational kiel from [employer]. MARY-7 Assessment Billing MARY-7 Assessment Tool: MARY-7 Assessment 47352 Review of Systems Const Denies headache(s) Eyes Denies loss of vision ENT Denies vertigo, Denies dizziness, Denies headache(s) and Denies sore throat Card Denies chest pain, Denies leg edema and Denies lightheadedness Resp Denies cough, Denies hemoptysis and Denies wheezing GI Denies abdominal pain, Denies melena, Denies constipation, Denies diarrhea and Denies vomiting Denies urinary frequency, Denies dysuria and Denies urinary urgency Musc Denies arthralgias, Denies joint swelling, Denies numbness and Denies tingling Neuro Denies Abnormal speech present, Denies behavioral changes, Denies vertigo, Denies dizziness, Denies headache(s), Denies loss of vision, Denies memory loss, Denies numbness and Denies tingling Psych Denies anxiety, Denies behavioral changes, Denies depression, Denies memory loss and Denies panic attacks Erasmo/Lymph Denies easy bleeding and Denies easy bruising Aller/Immun Denies wheezing Physical exam (Primary Care) Vital Signs: Last Vital Signs Pulse 68 06/22/24 14:09 BP 126/82 06/22/24 14:09 Pulse Ox 98 06/22/24 14:09 Oxygen Delivery Method Room Air 06/22/24 14:09 BMI result Body Mass Index 26.8 Tobacco/Smoking Status: Tobacco use Status Tobacco use date assessed 12/31/23 06/22/24 14:09 Patient Tobacco Use Status Former Tobacco user 06/22/24 14:09 Tobacco use type 12/31/23 14:00 e-Cigarette/Vaping Use Never Used 06/22/24 14:09 PHQ-9: PHQ-9 Score PHQ-9: Total score 0 06/22/24 14:13 Depression Screening Interpretation: Negative Thrive Assessment: Date of Thrive Assessment Date Thrive assessed 06/22/24 06/22/24 14:13 Const General: healthy appearing, no acute distress, alert and awake Nutritional Appearance: well nourished Orientation/consciousness: oriented to person, oriented to place and oriented to time HENMT Ears: TM's normal bilaterally General nose exam: Normal nasal mucous membranes and turbinates present Eyes Conjunctivae: conjunctivae normal Sclerae: sclerae normal Pupils: Equal, round and reactive pupils present Neck Neck: Yes no lymphadenopathy and Yes no JVD Thyroid: Thyroid normal Carotids: no bruits Resp Effort & Inspection: normal respiratory effort and not tachypneic Auscultation: no crackles, no rales, no rhonchi and no wheezes Cardio Rate: regular rate Rhythm: regular rhythm Heart sounds: no murmurs and normal S1 and S2 GI Palpation (GI): Soft to palpation, nontender, no hepatomegaly and no splenomegaly Auscultation: normal bowel sounds Skin General skin exam: no rashes or lesions noted and dry skin Neuro General: oriented to person, oriented to place and oriented to time Cranial nerves: Yes Equal, round and reactive pupils present Speech: No Abnormal speech present Gait exam (Neuro): Normal gait present Motor exam (neuro): no tremor noted Extrem Right upper extremity: full ROM Left upper extremity: full ROM Right lower extremity: full ROM; no edema Left lower extremity: full ROM; no edema Psych Mental Status: mental status grossly normal Speech and movement: Normal speech and movement present Affect: normal affect Attitude: cooperative Thought process: Normal thought process present Office Procedures Flu Questionnaire Does the patient have a severe egg allergy?: No Does the patient have severe life threatening allergies?: No Does the patient have a fever or illness today?: No Has the patient ever had Guillain-[place] Syndrome?: No Has the patient ever had any past reaction to a flu shot?: No Immunizations Fluarix Triv [id number] (PF) 45 mcg (15 mcg x 3)/0.5 mL IM syringe Performing Provider: Ramon Agrawal PA-C [facility] Administered by: TRE Arias on 06/22/24 14:10 Dose Route Admin Location Dispensed Lot Number Expiration Date ND Restaurant Hostess 0.5 mL IM Right Deltoid 0.5 mL [id number] 02/08/25 77080-986-85 [employer] VIS Given Date VIS Provided VIS Publication Date 06/22/24 Single Vaccine 21 Eligibility Eligibility Date Funding Source Not [facility] Eligible 06/22/24 Private Coding Level of Care Code Est Pt Level 4 (37184) Diagnoses Primary hypertension I10 Hypertension type: primary hypertension 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 She will continue her current dose lisinopril with goal blood pressure to remain below 140/90 (2) Neuropathy, arm: Code(s): G56.90 - Unspecified mononeuropathy of unspecified upper limb Category: Medical Qualifiers: Laterality: left Qualified Code(s): G56.92 - Unspecified mononeuropathy of left upper limb Plan: Patient has odd intermittent left upper arm pain that radiates from lateral shoulder to lateral elbow. She reports the pain is burning at times and actually it was her skin. Her son symptoms are concerning for a neuropathic type syndrome. We did discuss perhaps getting x-ray of her neck in trying physical therapy as she may be having a radiculopathy from cervical spine issue. She would like to hold and try medication and speak with pain management for now.. PLAN: Will try gabapentin for nerve related neuropathy. Will refer to pain management for pain reduction modality. (3) Oral cancer: Code(s): C06.9 - Malignant neoplasm of mouth, unspecified Category: Medical Plan: Patient is status post radiation and surgical excision.. As per HPI patient continues to follow [facility] and continues under surveillance for recurrent malignancy in her mouth. Orders: Orders Microalbumin, Random (w Creat) 06/22/24 I10 - Essential (primary) hypertension Influenza [id number] Immunization 06/22/24 Z23 - Encounter for immunization Comprehensive [place]. Panel Fast 06/22/24 I10 - Essential (primary) hypertension Complete Blood Count no Diff 06/22/24 I10 - Essential (primary) hypertension TSH reflex Free T4 06/22/24 E04.1 - Nontoxic single thyroid nodule Referrals Pain Management Referral G56.92 - Unspecified mononeuropathy of left upper limb Medications: New mometasone 0.1% 1 appl topical DAILY 45 grams 2RF 30 days L30.9 - Dermatitis, unspecified gabapentin 100 mg PO BID 60 caps 0RF 30 days G56.92 - Unspecified mononeuropathy of left upper limb Refilled albuterol sulfate 90 mcg/actuation 1 inh inhalation QID PRN 8.5 grams 0RF shortness of breath or wheezing 30 days J40 - Bronchitis, not specified as acute or chronic lisinopril 10 mg PO DAILY 90 tabs 2RF I10 - Essential (primary) hypertension
== END 2024-06-22 14:54 | disposition home or self-care (01) ==
PROVIDERS: PCP Physician Assistant; Visit Provider Physician Assistant
DX: I10 Essential (primary) hypertension (principal); G56.92 Unspecified mononeuropathy of left upper limb; C06.9 Malignant neoplasm of mouth, unspecified

== ENCOUNTER → 2024-06-22 13:56 | Outpatient (BNVA) | payer MEDICARE, SELFPAY | PROVIDERS: PCP Physician Assistant; Visit Provider Physician Assistant | DX: Z23 Encounter for immunization (principal); I10 Essential (primary) hypertension; G56.92 Unspecified mononeuropathy of left upper limb; C06.9 Malignant neoplasm of mouth, unspecified | CPT/HCPCS: 90471; 90656; 96127; 99212 ==

== ENCOUNTER 2024-07-02 12:58 | Outpatient (AMB) | payer MEDICARE, SELFPAY ==
[2024-07-02 13:04] VITALS: BP 148/70; PULSE 71; O2SAT 98; BMI 26.6
--- NOTE | 2024-07-02 13:04 | MHC.OFFVIS ---
Vital Signs 07/02/24 13:04 Height 5 ft 3 in Weight 150 lb BMI 26.6 BP 148/70 H Blood Pressure Location Rt brachial Pulse 71 Pulse Source Pulse Oximeter Pulse Oximetry (%) 98 Oxygen Delivery Method Room Air Intake Visit Reasons: Unspecified mononeuropathy of left upper limb Allergies latex [LATEX] Allergy (Unknown, Verified 07/02/24 13:05) HIVES/RASH morphine [MORPHINE] Allergy (Unknown, Verified 07/02/24 13:05) HIVES, rash powder in latex gloves Allergy (Unknown, Uncoded 07/02/24 13:05) rash Medication List - Last Reconciled 07/02/24 by Jannet Lorenzo albuterol sulfate 90 mcg/actuation 1 inh inhalation QID PRN 30 days gabapentin 100 mg PO BID 30 days ibuprofen 400 mg PO Q6H lisinopril 10 mg PO DAILY mometasone 0.1% 1 appl topical DAILY 30 days HPI Comments Details: Hailey is a very pleasant 69-year-old female who presents to the office today for evaluation management of her left arm paresthesias She has been suffering with this pain for 10 years. She reports it started after she suffered a severe sunburn to the area. Endorses pain, burning, itching sensation to the lateral left arm from just below the shoulder the elbow. Reports pain has been intermittent over the last 10 years and, and go for months at a time. It has now been constant for the last 5 months and seems to be getting worse She has found some improvement with ice. No improvement with Tylenol or ibuprofen. Using steroid topical cream with minimal improvement She has tried multiple ettn-szw-[id number] and prescription topical treatments without improvement Started on gabapentin by her primary care doctor one-week ago. She has noticed minimal improvement in 1 week's time. Pain today is rated as 3/10, intermittent worse at night In terms of muscle damage condition is described as hurting, aching, shooting, ranging, radiating kind of piercing, hot, burning, stabbing, sharp, stinging Pain is negatively impacting patient's enjoyment of life, general activity, mood, ability to perform activities of daily living, sleep Denies current use of anticoagulants Denies implantable devices, pacemaker or defibrillator. [facility] Medical History (Updated 07/02/24 @ 13:45 by Katerine Bro APRN, CARE TEAM COORDINATOR SCHEDULER) Erythrocytosis Thyroid nodule Solar urticaria Osteopenia (~2016) Polycythemia HTN (hypertension) Surgical History History of lumbar laminectomy History of total left hip replacement History of mandibular surgery Family History Father Diabetes HTN (hypertension) Mother HTN (hypertension) Asthma Sister Afib CVA (cerebral vascular accident) Social History Household Members: Family and Children Housing: House Are you a primary neonatal critical care nurse to a significant other at home: No Do you presently have visiting nurse or other home services: No Alcohol intake: current Alcohol intake frequency: a few times a week Alcohol type: beer Patient Tobacco Use Status: Former Tobacco user Cigarettes Per Day: 10 e-Cigarette/Vaping Use: Never Used Second Hand Smoke Exposure: No service: No Current occupational status: employed 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 Answers questions appropriately. Fully engaged in examination. Skin: warm, dry, intact. No visible rashes, lesions wounds of the left upper arm. HEENT: Normocephalic. Hearing intact. Cardiac: External chest normal in appearance. Respiratory: No cough, audible wheezing or stridor. Abdomen: without gross distension. MS: No obvious swelling or deformities. Neurological: Oriented to person, place, time and situation. Thought process intact. No gait abnormalities appreciated. Psychiatric: Appropriate mood and affect. Good judgment and insight. Assessment & Plan Assessment & Plan (1) Arm paresthesia, left: Code(s): R20.2 - Paresthesia of skin Category: Medical Plan Patient presented to the office today for evaluation management of her left arm paresthesias She has exhausted conservative therapy including oral medications, topical steroids, ice without improvement of her symptoms. New prescription for Salonpas topical patches. Will schedule for diagnostic left ultrasound-guided supraclavicular nerve block with local anesthetic. All questions and concerns were answered, patient agrees with the plan. Follow up after injection, sooner if needed Medications: New camphor-methyl salicyl-menthol 3.1 %-10 %-6 % (large) (Salonpas) may leave on for up to 12 hrs 1 patch topical DAILY 6 ea 4RF Coding Level of Care Code New Pt Level 4 (52434) Complex EM visit Add On G2211 Diagnoses Arm paresthesia, left R20.2
== END 2024-07-02 13:34 | disposition home or self-care (01) ==
PROVIDERS: PCP Physician Assistant; Visit Provider Registered Nurse Emergency
DX: R20.2 Paresthesia of skin (principal)
CPT/HCPCS: 99204; G2211

== ENCOUNTER → 2024-07-02 12:58 | Outpatient (BNVA) | payer MEDICARE, SELFPAY | PROVIDERS: PCP Physician Assistant; Visit Provider Registered Nurse Emergency | DX: R20.2 Paresthesia of skin (principal) | CPT/HCPCS: 99202 ==

== ENCOUNTER 2024-10-20 06:21 | Outpatient (REF) | payer MEDICARE, SELFPAY ==
--- OUTSIDE RECORDS SUMMARY | 2024-10-20 06:24 | XMS_ITS | Patient Health Record ---
Author Organization [facility] Address [address] [place] [address] Care Team Providers Care Costume Maker Name Role Phone Ramon Agrawal Primary Care Provider Olman Miles Jr Unavailable [phone] Allergies Allergen (clinical drug ingredient) Drug/Non Drug Allergy documented on EMR Reaction Allergy Type Onset Date Status morphine Morphine Sulfate Unknown Drug Allergy Active powder in latex glov es (uncoded) Unknown Allergy Active Reason For Referral No Information Medications Medication SIG (Take, Route, Fr equency, Duration) Notes Start Date End Date Status Vitamin D3 1000 UNIT 1 tablet Orally Once a day Active Calcium 600 MG 1 tablet with meals Orally Twice a day Active Golytely 236 GM as directed before c olonoscopy Orally every 15 minutes for 1 day(s) Active Ibuprofen 800 MG 1 tablet with food o r milk as needed Orally once a day/as needed Active Flagyl 250 MG 1 tablet Orally as directed Active Cipro 500 MG 1 tablet Orally Once a day Active Social History Tobacco Use: Social History Observation Description Date Details (start date - stop date) Current Smoker NA - NA Tobacco Use/Smoking Question Answer Notes Patient is a current smoker How often do you smoke cigarettes? every day How many cigarettes a day do you smoke? 11-20 Alcohol Screen Question Answer Notes Did you have a drink contain ing alcohol in the past year? Yes How often did you have a dri nk containing alcohol in the past year? 4 or more times a week (4 points) How many drinks did you have on a typical day when you were drinking in the past year? 5 or 6 drinks (2 points) Points 6 Interpretation Positive Problems Problem Type SNOMED Code ICD Code Onset Dates Problem Status W/U Status Risk Notes Problem 536183923 Colon cancer screening (Z12.11) Active confirmed Problem 117000573 Personal history of colonic polyps (Z86.010) Active confirmed Problem [id number] Visit for pre-operative examination (Z01.818) Active confirmed Plan Of Treatment Future Test Test Name Order Date COLONOSCOPY 01/16/2018 Insurance Providers Payer Name Payer Address Payer Phone Subscriber Number Group Number Insured Name Patient Relationship to Insured Coverage Start Date Coverage End Date [facility] [address] [place] [address] [id number] VIC PIMENTEL Self - patient is the insured Medical (General) History Medical History History ICD Code seasonal allergies hx of diverticulitis polycythemia- Dr. Guido Surgical History Surgery Date(Month/Year) wisdom teeth extraction 1972
--- OUTSIDE RECORDS SUMMARY | 2024-10-20 06:25 | XMS_ITS | Clinical Summary ---
Author Organization [facility] Address [address] [place] [address] Care Team Providers Care Branch Lead Name Role Phone Unavailable Primary Care Provider Unavailabl e Social History Tobacco Use Types Packs/Day Years Used Date Smoking Tobacco: Never Assessed Comments Unknown Sex and Gender Information Value Date Recorded Sex Assigned at Not on file Legal Sex Female 7:05 PM EST Gender Identity Not on file Sexual Orientation Not on file Plan of Treatment Health Maintenance Due Date Last Done Comments Breast Cancer Screening 1955 DTaP,Tdap,and Td Vaccines (1 - Tdap) 1973 Pneumococcal Vaccine: 50+ Ye ars (1 of 1 - PCV) 2004 Zoster Vaccines (1 of 2) 2004 COVID-19 Vaccine (2023-2 5 season) 2024 Influenza Vaccine (#1) 2024 RSV Immunization Patients 60 + Years Old (1 - 1-dose 75+ series) 2029 HIB Vaccines Aged Out No longer eligi ble based on patient's age to complete this topic HPV Vaccines Aged Out No longer eligi ble based on patient's age to complete this topic Hepatitis A Vaccines Aged Out No long er eligible based on patient's age to complete this topic Hepatitis B Vaccines Aged Out No long er eligible based on patient's age to complete this topic IPV Vaccines Aged Out No longer eligi ble based on patient's age to complete this topic MMR Vaccines Aged Out No longer eligi ble based on patient's age to complete this topic Meningococcal ACWY Vaccine Aged Out N o longer eligible based on patient's age to complete this topic Meningococcal B Vacine Aged Out No lo nger eligible based on patient's age to complete this topic RSV Immunization Patients Un tee 20 months Aged Out No longer eligible b ased on patient's age to complete this topic Varicella Vaccines Aged Out No longer eligible based on patient's age to complete this topic
== END 2024-10-20 06:22 | disposition home or self-care (01) ==
LOC: CF 06:21
PROVIDERS: Visit Provider Anesthesiology
DX: R20.2 Paresthesia of skin (principal)
CPT/HCPCS: 64418; J2795

== ENCOUNTER 2024-10-20 09:53 | Outpatient (AMB) | payer MEDICARE, SELFPAY ==
[2024-10-20 10:03] VITALS: BP 136/77; PULSE 71; RESP 16; O2SAT 100
--- NOTE | 2024-10-20 10:03 | A.OFFVIS_ITS ---
Vital Signs 10/20/24 10:03 BP 136/77 Blood Pressure Location Lt brachial Position Sitting Respiration 16 Pulse 71 Pulse Source Pulse Oximeter Pulse Oximetry (%) 100 Oxygen Delivery Method Room Air Intake Visit Reasons: LEFT DIAGNOSTIC SUPRACLAVICULAR NERVE BLOCK Cinema Or Theatre Manager Required: No Allergies latex [LATEX] Allergy (Unknown, Verified 10/20/24 10:04) HIVES/RASH morphine [MORPHINE] Allergy (Unknown, Verified 10/20/24 10:04) HIVES, rash powder in latex gloves Allergy (Unknown, Uncoded 09/17/24 11:31) rash [facility] Medical History (Updated 09/17/24 @ 13:09 by Pamela Leiva NP) Erythrocytosis Thyroid nodule Solar urticaria Osteopenia (~2015) Polycythemia HTN (hypertension) Surgical History History of lumbar laminectomy History of total left hip replacement History of mandibular surgery Family History Father Diabetes HTN (hypertension) Mother HTN (hypertension) Asthma Sister Afib CVA (cerebral vascular accident) Social History Household Members: Family and Children Housing: House Are you a primary medical care evaluation specialist to a significant other at home: No Do you presently have visiting nurse or other home services: No Alcohol intake: current Alcohol intake frequency: a few times a week Alcohol type: beer Patient Tobacco Use Status: Former Tobacco user Cigarettes Per Day: 10 e-Cigarette/Vaping Use: Never Used Second Hand Smoke Exposure: No service: No Current occupational status: employed 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 After explaining informed consent were risks and benefits including risks of bleeding infection and pneumothorax were explained to the patient she was taken to the examination bed and positioned with her head elevated on a pillow. ChloraPrep was applied to anterior lateral left side of her neck and upper shoulder as well as left upper chest. The field was draped with self adhesive sterile utility towels. Sterilely draped ultrasound probe was brought over the operating field and ultrasound picture of the patient's left subclavian artery lips of came in vein and brachial plexus were demonstrated on the screen. 80 mm 22 gauge echo stim needle was inserted in plane extra anatomically and advanced to were the close proximity of the brachial plexus. Injection of the saline demonstrated appropriate spread of the dictate. After that injection of the 2 cc of ropivacaine 0.5% was performed at the area. The patient tolerated the procedure well. The needle was withdrawn sterile Band-Aid was applied. She reported no side effects. Orders: Orders FL guidance in treatment room 10/20/24 R20.2 - Paresthesia of skin Coding Level of Care Code Procedure Only Diagnoses Arm paresthesia, left R20.2
--- OUTSIDE RECORDS SUMMARY | 2024-10-20 11:17 | XMS_ITS ---
Author Organization [facility] Address [address] [place] [address] Care Team Providers Care Air Marshal Name Role Phone Ramon Agrawal Primary Care Provider Unavailab Olman Swanson Jr Encounters Encounter Location Date Provider Diagnosis [facility] [address] [place] [address] 05/16/2023 Olman Hayward Jr Plan Of Treatment No Information Progress Notes * VIC PIMENTEL RDOB:[birth year] (68 yo F)Acc No.[id number]:05/16/2023 Patient:?VIC PIMENTEL :1955???Age:68 Y???Sex:Female Address:[address] [place] [address], [address] * true * Date:? Generated for Printi ng/Rosalbag/eTransmitting on:?10/20/2024 11:16 AM EDT
--- OUTSIDE RECORDS SUMMARY | 2024-10-20 11:17 | XMS_ITS | Clinical Summary ---
Author Organization [employer] [facility] ity Address [address] [place] [address] Care Team Providers Care Data Developer Name Role Phone Unavailable Primary Care Provider [...]
== END 2024-10-20 10:54 | disposition home or self-care (01) ==
LOC: HO.PMCPRC 09:53
PROVIDERS: PCP Physician Assistant; Visit Provider Anesthesiology
DX: R20.2 Paresthesia of skin (principal)
CPT/HCPCS: 64418; 76942

== ENCOUNTER 2024-10-30 10:39 | Outpatient (AMB) | payer MEDICARE, SELFPAY ==
--- NOTE | 2024-10-30 10:44 | MHC.OFFVIS ---
Vital Signs 10/30/24 10:59 Height 5 ft 3 in Weight 153 lb BMI 27.1 BP 150/71 H Blood Pressure Location Rt brachial Position Sitting Pulse 77 Pulse Source Pulse Oximeter Pulse Oximetry (%) 98 Oxygen Delivery Method Room Air Intake Visit Reasons: LEFT DIAGNOSTIC SUPRACLAVICULAR NERVE BLOCK Intake Note: Pain today 08/21 Service Center Appraiser Required: No Accompanied by: Self / Same As Patient Allergies latex [LATEX] Allergy (Unknown, Verified 10/30/24 10:59) HIVES/RASH morphine [MORPHINE] Allergy (Unknown, Verified 10/30/24 10:59) HIVES, rash powder in latex gloves Allergy (Unknown, Uncoded 09/17/24 11:31) rash HPI Comments Details: The patient is a 69-year-old female presenting for follow up 11 days s/p diagnostic left suprascapular nerve block. She reports neuropathic pain primarily due to previous radiation therapy starting in January, characterized by intermittent episodes of severe itching and burning once weekly. These symptoms affect her sleep, though she reports that the severity is gradually improving over time. Endorses 100 % pain relief with improvement in function and mobility for 8 hours after the diagnostic injection. Denies any untoward effects of the procedure. Attempts to manage the pain with gabapentin were unsuccessful due to adverse effects. Relief was noted with conservative topical treatment for eczema and temporary complete relief following a nerve block procedure for eight hours. The patient expresses apprehension about using invasive methods such as peripheral nerve stimulation but acknowledges its potential benefits. She prefers to manage symptoms conservatively while waiting for the natural resolution of radiation-induced neuropathy. - Onset: Since January, following radiation therapy. - Quality: Persistent itching and burning sensation. - Primary Location: Right arm. - Timing: Occurs approximately once a week. - Duration: Symptomatic relief following nerve block lasted eight hours. - Aggravating Factors: Possibly linked to radiation therapy. - Relieving Factors: Temporary relief with a nerve block; using topical moisturizers and steroid creams. - Interference: Affects sleep due to itching and burning episodes. - Affect: Psychological distress related to lack of sleep. - Analgesia: Gabapentin was attempted but discontinued due to side effects; nerve block provided temporary relief. - Adverse Effects: Leg cramps and nightmares from gabapentin. - Activities of Daily Living: Sleep interrupted weekly due to episodes of itching and burning. - Aberrant Drug Related Behaviors: None reported. Intake note: Hailey is a very pleasant 69-year-old female who presents to the office today for evaluation management of her left arm paresthesias She has been suffering with this pain for 10 years. She reports it started after she suffered a severe sunburn to the area. Endorses pain, burning, itching sensation to the lateral left arm from just below the shoulder the elbow. Reports pain has been intermittent over the last 10 years and, and go for months at a time. It has now been constant for the last 5 months and seems to be getting worse She has found some improvement with ice. No improvement with Tylenol or ibuprofen. Using steroid topical cream with minimal improvement She has tried multiple [id number] and prescription topical treatments without improvement Started on gabapentin by her primary care doctor one-week ago. She has noticed minimal improvement in 1 week's time. Pain today is rated as 3/10, intermittent worse at night In terms of muscle damage condition is described as hurting, aching, shooting, ranging, radiating kind of piercing, hot, burning, stabbing, sharp, stinging Pain is negatively impacting patient's enjoyment of life, general activity, mood, ability to perform activities of daily living, sleep Denies current use of anticoagulants Denies implantable devices, pacemaker or defibrillator. [facility] Medical History (Updated 09/17/24 @ 13:09 by Pamela Leiva NP) Erythrocytosis Thyroid nodule Solar urticaria Osteopenia (~2015) Polycythemia HTN (hypertension) Surgical History History of lumbar laminectomy History of total left hip replacement History of mandibular surgery Family History Father Diabetes HTN (hypertension) Mother HTN (hypertension) Asthma Sister Afib CVA (cerebral vascular accident) Social History Household Members: Family and Children Housing: House Are you a primary care center manager to a significant other at home: No Do you presently have visiting nurse or other home services: No Alcohol intake: current Alcohol intake frequency: a few times a week Alcohol type: beer Patient Tobacco Use Status: Former Tobacco user Cigarettes Per Day: 10 e-Cigarette/Vaping Use: Never Used Second Hand Smoke Exposure: No service: No Current occupational status: employed 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 Physical Exam Vital Signs: Last Vital Signs Pulse 77 10/30/24 10:59 BP 150/71 H 10/30/24 10:59 Pulse Ox 98 10/30/24 10:59 Oxygen Delivery Method Room Air 10/30/24 10:59 BMI result Body Mass Index 27.1 General: awake, alert, oriented. Answers questions appropriately. Fully engaged in examination. Skin: warm, dry, intact. No visible rashes, lesions wounds of the left upper arm. HEENT: Normocephalic. Hearing intact. Cardiac: External chest normal in appearance. Respiratory: No cough, audible wheezing or stridor. Abdomen: without gross distension. MS: No obvious swelling or deformities. Neurological: Oriented to person, place, time and situation. Thought process intact. No gait abnormalities appreciated. Psychiatric: Appropriate mood and affect. Good judgment and insight. Assessment & Plan Assessment & Plan (1) Arm paresthesia, left: Code(s): R20.2 - Paresthesia of skin Category: Medical Plan For the neuropathic pain linked to prior radiation therapy, we discussed the option of using a Sprint peripheral nerve stimulator, which can be placed temporarily to provide potential long-term symptom relief. The patient is considering this option while continuing topical treatments and assessing symptom progression. The patient's preference is to monitor and possibly engage in this minimally invasive procedure at a later date if symptoms fail to resolve naturally or worsen. We will keep an open line of communication for future interventions or changes in her treatment strategy. During our discussion, I explained the peripheral nerve stimulation option, including the benefits and procedural steps, emphasizing its potential to provide extended relief from neuropathic symptoms affecting the patient's arm. I detailed procedural safety, the temporary nature of the device, and typical placement, which is accompanied by minimal interference with daily activities. Risks such as discomfort related to the temporary stimulation were honestly communicated. The patient was encouraged to review detailed information and consider it based on future symptom progression. We also discussed continuing her current topical treatment plan without introducing additional systemic medications at this time due to her past intolerance to gabapentin and her preference for conservative management. The patient has the option to contact the office to initiate the approval and setup process if she chooses to proceed with the peripheral nerve stimulation procedure. - Monitor symptoms and apply moisturizers or steroid creams as needed. - Consider the Sprint nerve stimulator if symptoms worsen or relief is inadequate. - Review information about the stimulator and potential benefits. - Keep a record of symptom frequency and triggers. - Reach out for supportive guidance or questions about future procedures. - Seek medical attention if symptoms acutely worsen or impact quality of life significantly. Patient was informed and verbally consented to the use of an ambient scribe for clinic note documentation during this visit. Coding Level of Care Code Est Pt Level 3 (47254) Complex EM visit Add On G2211 Diagnoses Arm paresthesia, left R20.2
[2024-10-30 10:59] VITALS: BP 150/71; PULSE 77; O2SAT 98; BMI 27.1
--- OUTSIDE RECORDS SUMMARY | 2024-10-30 12:48 | XMS_ITS | Patient Health Record ---
Author Organization [facility] Address [address] [place] [address] Care Team Providers Care Garde Manager Name Role Phone Ramon Agrawal Primary Care Provider Olman Miles Jr Unavailable Allergies Allergen (clinical drug ingredient) Drug/Non Drug [...] Problem Status W/U Status Risk Notes Problem [id number] Colon cancer screening (Z12.11) Active confirmed Problem 036304910 Personal history of colonic polyps (Z86.010) Active confirmed Problem [id number] Visit for pre-operative examination (Z01.818) Active confirmed Plan Of Treatment Future Test Test Name Order Date COLONOSCOPY 01/16/2018 Insurance Providers Payer Name Payer Address Payer Phone Subscriber Number Group Number Insured Name Patient Relationship to Insured Coverage Start Date Coverage End Date [facility] [address] [place] [address] [phone] [id number] VIC PIMENTEL Self - patient is the insured Medical (General) History Medical History History ICD Code seasonal allergies hx of diverticulitis polycythemia- Dr. Guido Surgical History Surgery Date(Month/Year) wisdom teeth extraction 1972
--- OUTSIDE RECORDS SUMMARY | 2024-10-30 12:48 | XMS_ITS | Clinical Summary ---
Author Organization [facility] it[facility] Address [address] [place] [address] Care Team Providers Care Television Installer Name Role Phone Unavailable Primary Care Provider [...]
--- OUTSIDE RECORDS SUMMARY | 2024-10-30 12:48 | XMS_ITS ---
Author Organization [facility] Address [address] [place] [address] Care Team Providers Care Benefits Advisor Name Role Phone Ramon Agrawal Primary Care Provider Unavailab Olman Swanson Jr [phone] Encounters Encounter Location Date Provider Diagnosis [facility] [address] [place] [phone] 05/16/2023 Olman Hayward Jr Plan Of Treatment No Information Progress Notes * VIC PIMENTEL RDOB:[birth year] (68 yo F)Acc No.[id number]:05/16/2023 Patient:?VIC PIMENTEL :1955???Age:68 Y???Sex:Female Address:[address] [place] [address], [address] * true * Date:? Generated for Printi ng/Fahazelg/eTransmitting on:?10/30/2024 12:48 PM EDT
== END 2024-10-30 11:24 | disposition home or self-care (01) ==
LOC: HO.PMC 10:40
PROVIDERS: PCP Physician Assistant; Visit Provider Registered Nurse Emergency
DX: R20.2 Paresthesia of skin (principal)
CPT/HCPCS: 99213; G2211

== ENCOUNTER → 2024-10-30 10:39 | Outpatient (BNVA) | payer MEDICARE, SELFPAY | PROVIDERS: PCP Physician Assistant; Visit Provider Registered Nurse Emergency | DX: R20.2 Paresthesia of skin (principal) | CPT/HCPCS: 99212 ==

== ENCOUNTER 2024-11-03 09:58 | Outpatient (REF) | payer MEDICARE, SELFPAY ==
--- NOTE | ~2024-11-03 | MM_ITS ---
EXAMINATION: DXA BONE DENSITY AXIAL HISTORY: Estrogen deficiency TECHNIQUE: CoAlign Dual energy absorptiometry (DEXA) of the lumbar spine, total right hip, and femoral neck was performed. COMPARISON: Comparison is made with the prior examination dated 05/03/2016. FINDINGS: The bone mineral density of the lumbar spine is 1.109 with a T-score of -0.5, and a Z-score of 1.0. This is indicative of normal bone mineral density. This represents a BMD change of -11.1% compared to the prior exam. This is statistically significant. The bone mineral density of the right total hip is 0.826 with a T-score of -1.4, and a Z-score of -0.1. This is indicative of osteopenia. This represents a BMD change of -9.2% compared to the prior exam. This is statistically significant. The bone mineral density of the right femoral neck is 0.709 with a T-score of -2.4, and a Z-score of -0.8. This is indicative of osteopenia. This represents a BMD change of -15.6% compared to the prior exam. FRACTURE RISK: The FRAX index suggests a ten year probability of major osteoporotic fracture of 13.9%, and of hip fracture 3.4%. MM/XR DEXA axial skeleton IMPRESSION: Based on bone mineral density, and according to World Health Organization (WHO) criteria, the diagnosis is consistent with osteopenia. All bone density values are in grams per centimeter squared (g/cm2). Statistically, 68% of repeat scans fall within 1 SD (+/- 0.010 g/cm2 for AP spine L1-L4) and 1 SD (+/- 0.012 g/cm2 for femur total) FRAX is a trademark of the [employer]'s [place] [employer] Metabolic Bone Disease, a World Health Organization (WHO) Collaborating Center. Electronically signed by: Amadou Victor MD 11/03/2024 11:00 AM EDT
--- OUTSIDE RECORDS SUMMARY | 2024-11-03 11:42 | XMS_ITS ---
Author Organization [facility] Address [address] [place] [address] Care Team Providers Care Translator Name Role Phone Ramon Agrawal Primary Care Provider Unavailab Olman Swanson Jr [phone] Encounters Encounter Location Date Provider Diagnosis [facility] [address] [place] [phone] 05/16/2023 Olman Hayward Jr Plan Of Treatment No Information Progress Notes * VIC PIMENTEL RDOB:[birth year] (68 yo F)Acc No.[id number]:05/16/2023 Patient:?VIC PIMENTEL :1955???Age:68 Y???Sex:Female Address:[address] [place] [address], [address] * true * Date:? Generated for Printi ng/Fahazelg/eTransmitting on:?11/03/2024 11:41 AM EDT
--- OUTSIDE RECORDS SUMMARY | 2024-11-03 11:42 | XMS_ITS | Patient Health Record ---
Author Organization [facility] Address [address] [place] [address] Care Team Providers Care Dictating Transcribing Machine Servicer Name Role Phone Ramon Agrawal Primary Care Provider Olman Miles Jr Unavailable [phone] Allergies Allergen (clinical drug ingredient) Drug/Non [...] Problem Status W/U Status Risk Notes Problem 782236884 Colon cancer screening (Z12.11) Active confirmed Problem 662394446 Personal history of colonic polyps (Z86.010) Active confirmed Problem [id number] Visit for pre-operative examination (Z01.818) Active confirmed Plan Of Treatment Future Test Test Name Order Date COLONOSCOPY 01/16/2018 Insurance Providers Payer Name Payer Address Payer Phone Subscriber Number Group Number Insured Name Patient Relationship to Insured Coverage Start Date Coverage End Date [facility] [address] [place] [address] [id number] VIC PIMENTEL Self - patient is the insured Medical (General) History Medical History History ICD Code seasonal allergies hx of diverticulitis polycythemia- Dr. Guido Surgical History Surgery Date(Month/Year) wisdom teeth extraction 1972
--- OUTSIDE RECORDS SUMMARY | 2024-11-03 11:42 | XMS_ITS | Clinical Summary ---
Author Organization [employer] [facility] ity Address [address] [place] [address] Care Team Providers Care Machine Attendant Name Role Phone Unavailable Primary Care Provider [...]
== END 2024-11-03 09:59 | disposition home or self-care (01) ==
LOC: HO.MAMMO 09:58
PROVIDERS: PCP Physician Assistant; Visit Provider Nurse Practitioner Family
DX: Z13.820 Encounter for screening for osteoporosis (principal); E28.39 Other primary ovarian failure; M85.80 Other specified disorders of bone density and structure, unspecified site
CPT/HCPCS: 77080

== ENCOUNTER → 2024-11-03 10:00 | Outpatient (BNV) | payer MEDICARE, SELFPAY | PROVIDERS: PCP Physician Assistant; Visit Provider Radiology Diagnostic Radiology | DX: E28.39 Other primary ovarian failure (principal) | CPT/HCPCS: 77080 ==

== ENCOUNTER 2024-12-24 07:00 | Outpatient (REF) | payer MEDICARE, SELFPAY ==
[2024-12-24 07:43] LABS: Hematocrit 41.3 % (37.0-47.0); Hemoglobin 13.8 g/dl (12.0-16.0); Mean Corpuscular HGB Conc 33.4 g/dl (31.0-35.0); Mean Corpuscular Hemoglobin 30.3 pg (27.0-33.0); Mean Corpuscular Volume 90.8 fL (80.0-98.0); Mean Platelet Volume 9.5 fL (9.4-12.3); Platelet Count 402 X10*3/uL (160-400); Red Blood Count 4.55 X10*6/uL (4.20-5.50); Red Cell Distribution Width 14.2 % (11.0-16.0); White Blood Count 10.4 X10*3/uL (4.8-10.8)
[2024-12-24 08:18] LABS: Alanine Aminotransferase 19 U/L (0-31); Albumin Level 4.1 g/dL (3.5-5.0); Alkaline Phosphatase 120 U/L (39-117); Anion Gap 11 (12-20); Aspartate Amino Transferase 24 U/L (5-31); Bilirubin Total 0.5 mg/dL (0.0-1.0); Blood Urea Nitrogen 17 mg/dL (9-16); Calcium 9.4 mg/dL (8.4-10.2); Carbon Dioxide 26 mmol/L (22-29); Chloride 104 mmol/L (96-108); Estimated Glomerular Filt Rate > 60; Glucose Fasting 100 mg/dL (60-99); Potassium 4.1 mmol/L (3.3-5.1); Sodium 137 mmol/L (135-145); Total Protein 7.3 g/dL (6.5-8.0)
[2024-12-24 08:33] LABS: TSH reflex Free T4 15.42 uIU/mL (0.32-4.0)
[2024-12-24 09:04] LABS: Free T4 (Free Thyroxine) 0.79 ng/dL (0.71-1.85)
[2024-12-24 09:36] LABS: Creatinine Urine 127.17 mg/dL; Microalbum/Creatinine Ratio Ur 4.7 ug/mg cr (<30)
== END 2024-12-24 07:01 | disposition home or self-care (01) ==
LOC: HO.LAB 07:00
PROVIDERS: PCP Physician Assistant; Visit Provider Physician Assistant
DX: I10 Essential (primary) hypertension (principal); E04.1 Nontoxic single thyroid nodule
CPT/HCPCS: 36415; 80053; 82043; 82570; 84439; 84443; 85027

== ENCOUNTER 2024-12-31 14:21 | Outpatient (AMB) | payer MEDICARE, SELFPAY ==
--- OUTSIDE RECORDS SUMMARY | 2024-12-31 14:26 | XMS_ITS | Patient Health Record ---
Author Organization [facility] Address [address] [place] [address] Care Team Providers Care Gis Web Developer Name Role Phone Ramon Agrawal Primary Care Provider Olman Miles Jr Unavailable [phone] Allergies Allergen (clinical drug ingredient) Drug/Non [...] Problem Status W/U Status Risk Notes Problem 237683103 Colon cancer screening (Z12.11) Active confirmed Problem 279984860 Personal history of colonic polyps (Z86.010) Active confirmed Problem [id number] Visit for pre-operative examination (Z01.818) Active confirmed Plan Of Treatment Future Test Test Name Order Date COLONOSCOPY 01/16/2018 Insurance Providers Payer Name Payer Address Payer Phone Subscriber Number Group Number Insured Name Patient Relationship to Insured Coverage Start Date Coverage End Date [facility] [address] [place] [address] [id number] VIC PIMENTEL Self - patient is the insured Medical (General) History Medical History History ICD Code seasonal allergies hx of diverticulitis polycythemia- Dr. Guido Surgical History Surgery Date(Month/Year) wisdom teeth extraction 1972
--- NOTE | 2024-12-31 14:31 | MHC.PC.OV ---
Vital Signs 12/31/24 14:37 Height 5 ft 3 in Weight 160 lb 4 oz BMI 28.4 BP 132/68 Blood Pressure Location Lt brachial Position Sitting Respiration 15 Pulse 76 Pulse Source Pulse Oximeter Temp 96.9 F Temp Source Temporal Artery Scan Pulse Oximetry (%) 97 Oxygen Delivery Method Room Air Intake Visit Reasons: annual exam Certified Art Therapist Required: No Accompanied by: Self / Same As Patient Allergies latex [LATEX] Allergy (Unknown, Verified 12/31/24 14:52) HIVES/RASH morphine [MORPHINE] Allergy (Unknown, Verified 12/31/24 14:52) HIVES, rash powder in latex gloves Allergy (Unknown, Uncoded 12/31/24 14:52) rash Medication List - Last Reconciled 12/31/24 by Ramon Agrawal PA-C albuterol sulfate 90 mcg/actuation 1 inh inhalation QID PRN 30 days camphor-methyl salicyl-menthol 3.1 %-10 %-6 % (large) (Salonpas) 1 patch topical DAILY gabapentin 100 mg PO BID 30 days levothyroxine 50 mcg PO DAILY 30 days lisinopril 10 mg PO DAILY mometasone 0.1% 1 appl topical DAILY 30 days Tobacco use date assessed: 12/31/24 Dental Screening Dental Screen Date: 12/31/24 Did you have a dental visit in the last 12 months?: Yes Did you have a dental problem in the last 6 months where you did not have access to dental care?: No Was dental information given to patient?: Patient has dentist HPI annual exam HPI Details Patient is a 69 year female here today for annual physical. Patient has a past medical history significant for hypertension, lumbar disc disease, tobacco use disorder, thrombocytosis. Hypothyroid: She does report some fatigue and weight gain lately. Recently noted elevated TSH. She was recently started on levothyroxine. Hypo functioning thyroid thought to be secondary to an effect from radiation on her neck. 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 Has some lingering side effects from the radiation such as mouth pain and decreased taste and smell. Is followed by [facility] for regular surveillance of malignancy recurrence .. ?former smoker- Per patient quit smoking in Jul 2023 .. Hypertension:? Continues on lisinopril 10 mg with good effect on her blood pressure.? Blood pressure acceptable today in office., Otherwise denies any chest discomfort, headaches or vision issues. Colon cancer screening: willing to do cologaurd. Vaccine: Up-to-date with COVID vaccine, tetanus vaccine shingles and pneumonia vaccine Mammogram: Needs Mammo [facility] Medical History Erythrocytosis Thyroid nodule Solar urticaria Osteopenia (~2016) Polycythemia HTN (hypertension) Surgical History History of lumbar laminectomy History of total left hip replacement History of mandibular surgery Family History Father Diabetes HTN (hypertension) Mother HTN (hypertension) Asthma Sister Afib CVA (cerebral vascular accident) Social History Household Members: Family and Children Housing: House Are you a primary workforce investment act career manager to a significant other at home: No Do you presently have visiting nurse or other home services: No Alcohol intake: current Alcohol intake frequency: a few times a week Alcohol type: beer Patient Tobacco Use Status: Former Tobacco user Cigarettes Per Day: 10 e-Cigarette/Vaping Use: Never Used Second Hand Smoke Exposure: No service: No Current occupational status: employed 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 1. Little interest or pleasure in doing things: not at all 2. Feeling down, depressed, or hopeless: not at all 3. Trouble falling or staying asleep, or sleeping too much: not at all 4. Feeling tired or having little energy: not at all 5. Poor appetite or overeating: not at all 6. Feeling bad about yourself - or that you are a failure or have let yourself or your family down: not at all 7. Trouble concentrating on things, such as reading the newspaper or watching television: not at all 8. Moving or speaking so slowly that other people could have noticed. Or the opposite - being so fidgety or restless that you have been moving around a lot more than usual: not at all 9. Thoughts that you would be better off or of hurting yourself in some way: not at all Total score: 0 Depression Screening Interpretation: Negative Depression Screening Done: Yes 14939 - PHQ-9 Billing: Yes Source: Developed by Drs. Amadou Weber, Cecille Oshea, Tan Bello and colleagues, with an educational kiel from [employer]. Thrive Questionnaire Date Thrive assessed: 12/31/24 I am a: Patient What is your living situation today?: I have a steady place to live Within the past 12 months, did the food you bought not last and you didn't have the money to get more?: Never true Within the past 12 months, did you worry whether your food would run out before you got money to buy more?: Never true Do you have trouble paying for medicines?: No Do you have trouble getting transportation to medical appointments?: No Do you have trouble paying your heating and electricity bill?: No Do you have trouble taking care of your child, family member or friend?: No Do you have trouble with day-to-day activities such as bathing, preparing meals, shopping, managing finances, etc.?: No Are you currently unemployed and looking for a job?: No Are you interested in more education?: No Please select the resources that you would like help with: None Currently or been in a relationship where the following occur: No concerns reported THRIVE Score: 0 AUDIT C Alcohol Use Questionnaire (AUDIT-C) 1. How often do you have a drink containing alcohol?: 2-4 times a month 2. How many drinks containing alcohol do you have on a typical day when you are drinking?: 1 or 2 3. How often do you have six or more drinks on one occasion?: Never Total Score: 2 MARY-7 AMB Questionnaire MARY-7 Date MARY - 7 assessed: 12/31/24 Feeling nervous, anxious, or on edge: 0 = Not at all Not being able to stop or control worryin = Not at all Worrying too much about different things: 0 = Not at all Trouble relaxin = Not at all Being so restless that it is hard to sit still: 0 = Not at all Becoming easily annoyed or irritable: 0 = Not at all Feeling afraid as if something awful might happen: 0 = Not at all Total MARY-7 score (0-4 normal; 5-9 mild; 10-14 moderate; 15-21 severe): 0 Source: Developed by Drs. Amadou Weber, Cecille Oshea, Tan Bello and colleagues, with an educational kiel from [employer]. MARY-7 Assessment Billing MARY-7 Assessment Tool: MARY-7 Assessment 68575 Review of Systems Const Denies body aches, Denies chills, Denies excessive sweating, Reports fatigue, Denies fever(s), Denies headache(s) and Reports weight gain Eyes Denies blurry vision ENT Denies dysphagia, Denies vertigo, Denies dizziness, Denies headache(s), Denies hearing loss and Denies tinnitus Card Denies chest pain, Denies chest pain with activity, Denies syncope, Denies irregular heart rhythm and Denies dyspnea Resp Denies chest congestion, Denies cough, Denies hemoptysis, Denies dyspnea and Denies wheezing GI Denies abdominal pain, Denies melena, Denies hematochezia, Denies coffee ground emesis, Denies dysphagia, Denies diarrhea, Denies nausea and Denies vomiting Denies urinary frequency, Denies dysuria, Denies urinary hesitancy and Denies urinary urgency Musc Denies arthralgias, Denies limited range of motion, Denies muscle cramps and Denies muscle weakness Skin/Breast Denies rash and Denies skin ulcer Neuro Denies Abnormal speech present, Denies confusion, Denies vertigo, Denies dizziness, Denies syncope, Denies headache(s), Denies memory loss and Denies seizure-like activity Psych Denies anxiety, Denies confusion, Denies depression, Denies memory loss, Denies panic attacks and Denies paranoia Endo Denies excessive sweating, Reports fatigue, Denies flushing, Denies polydipsia and Denies polyuria Aller/Immun Denies wheezing Physical exam (Primary Care) Vital Signs: Last Vital Signs Temp 96.9 F 12/31/24 14:37 Pulse 76 12/31/24 14:37 Resp 15 12/31/24 14:37 BP 132/68 12/31/24 14:37 Pulse Ox 97 12/31/24 14:37 Oxygen Delivery Method Room Air 12/31/24 14:37 BMI result Body Mass Index 28.4 Tobacco/Smoking Status: Tobacco use Status Tobacco use date assessed 12/31/24 12/31/24 14:39 Patient Tobacco Use Status Former Tobacco user 12/31/24 14:33 Tobacco use type 12/31/23 14:00 e-Cigarette/Vaping Use Never Used 12/31/24 14:33 PHQ-9: PHQ-9 Score PHQ-9: Total score 0 01/06/25 08:11 Depression Screening Interpretation: Negative Thrive Assessment: Date of Thrive Assessment Date Thrive assessed 12/31/24 12/31/24 14:33 Currently or been in a relationship where the following occur: No concerns reported Const General: cooperative, comfortable, no acute distress, alert and awake; No confusion Orientation/consciousness: oriented to person, oriented to place, patient oriented x3 and No confusion HENMT Head: Yes normocephalic Ears: external ears normal and TM's normal bilaterally Face and sinus: No sinus tenderness Mouth: Normal oral and palatal mucosa present and tongue normal Teeth and gingiva: dentition normal and gingiva normal Throat: Yes posterior oropharynx normal, Yes tonsils normal and Yes uvula midline Eyes Conjunctivae: conjunctivae normal Sclerae: sclerae normal Pupils: Equal, round and reactive pupils present EOM: EOMs intact bilaterally Direct Ophthalmoscopy: No no photophobia Neck Neck: Yes no lymphadenopathy, No tender and Yes no JVD Thyroid: Thyroid normal Carotids: no bruits Chest Chest palpation & inspection: no tenderness Resp Effort & Inspection: normal respiratory effort, no audible wheezes, not labored and no stridor Auscultation: no crackles, no rales, no rhonchi and no wheezes Cardio Jugular venous distension: no JVD Rate: regular rate, not bradycardic and not tachycardic Rhythm: regular rhythm Bruits: no carotid bruits Peripheral pulses: Peripheral pulses 2+ throughout GI Inspection: Yes normal to inspection, No abdominal wall ecchymosis and No visible herniation Palpation (GI): Soft to palpation, nontender, no guarding, not rigid and No hepatosplenomegaly present Auscultation: normoactive bowel sounds General: Yes no CVA tenderness Back/Spine/Pelvis Back: no CVA tenderness and No back tenderness Cervical Spine: cervical ROM normal Thoracic/Lumbar Spine: thoracic and lumbar spine normal to inspection, straight leg raise negative bilaterally, No thoraco-lumbar ROM limited and No lumbar spinal tenderness Skin Lesions: no lesions Rashes: no rashes Wounds: no wounds Neuro General: oriented to person, oriented to place, patient oriented x3, CN's II-XI intact bilaterally and No confusion Cranial nerves: Yes Equal, round and reactive pupils present and Yes Normal accommodation reflex present Cognition (Neuro): normal cognition Speech: No Abnormal speech present Gait exam (Neuro): Normal gait present Motor exam (neuro): 5/5 motor strength present throughout Extrem Right upper extremity: full ROM; no cyanosis Left upper extremity: full ROM; no cyanosis Right lower extremity: no edema Left lower extremity: no edema Psych Appearance: grossly normal Mental Status: mental status grossly normal Affect: normal affect Attitude: cooperative Thought process: Normal thought process present Coding Level of Care Code Est Pt Prev Care >65y(90462) Diagnoses Annual physical exam Z00.00 Primary hypertension I10 Hypertension type: primary hypertension Oral cancer C06.9 Hypothyroidism, unspecified type E03.9 Hypothyroidism type: unspecified Additional Codes MARY-7 Assessment Billing - MARY-7 Assessment Tool: MARY-7 Assessment 23987 ([id number]) PHQ-9 - 09427 - PHQ-9 Billing: Yes ([id number]) Assessment & Plan Assessment & Plan (1) Annual physical exam: Code(s): Z00.00 - Encounter for general adult medical examination without abnormal findings Category: Medical Plan: As per HPI (2) HTN (hypertension): Code(s): I10 - Essential (primary) hypertension Category: Medical Qualifiers: Hypertension type: primary hypertension Qualified Code(s): I10 - Essential (primary) hypertension Plan: Patient's blood pressure acceptable today in office. She will continue her current dose lisinopril with goal blood pressure to remain below 140/90 (3) Oral cancer: Code(s): C06.9 - Malignant neoplasm of mouth, unspecified Category: Medical Plan: Patient is status post radiation and surgical excision in 2023.. As per HPI patient continues to follow [place] [facility] [place] [facility] and continues under surveillance for recurrent malignancy in her mouth. (4) Hypothyroid: Code(s): E03.9 - Hypothyroidism, unspecified Category: Medical Qualifiers: Hypothyroidism type: unspecified Qualified Code(s): E03.9 - Hypothyroidism, unspecified Plan: Patient has been experiencing fatigue and weight gain as of late. Found to have elevated TSH likely associated with radiation on her jaw and neck.. Patient's most recent TSH elevated, has started levothyroxine and will recheck TSH to ensure stabilization. Orders: Orders TSH reflex Free T4 6 Weeks E03.9 - Hypothyroidism, unspecified Medications: Refilled lisinopril 10 mg PO DAILY 90 tabs 2RF I10 - Essential (primary) hypertension Patient Instructions: Goal: Blood pressure to remain below 140/90 Barrier: Adherence to physical activity and healthy eating habits
[2024-12-31 14:37] VITALS: BP 132/68; PULSE 76; RESP 15; TEMP 36.1; O2SAT 97; BMI 28.4
== END 2024-12-31 15:28 | disposition home or self-care (01) ==
LOC: HO.HMCH 14:21
PROVIDERS: PCP Physician Assistant; Visit Provider Physician Assistant
DX: Z00.00 Encounter for general adult medical examination without abnormal findings (principal); I10 Essential (primary) hypertension; C06.9 Malignant neoplasm of mouth, unspecified; E03.9 Hypothyroidism, unspecified

== ENCOUNTER → 2024-12-31 14:21 | Outpatient (BNVA) | payer MEDICARE, SELFPAY | PROVIDERS: PCP Physician Assistant; Visit Provider Physician Assistant | DX: Z00.00 Encounter for general adult medical examination without abnormal findings (principal); I10 Essential (primary) hypertension; E78.5 Hyperlipidemia, unspecified; C06.9 Malignant neoplasm of mouth, unspecified; E03.9 Hypothyroidism, unspecified; Z87.891 Personal history of nicotine dependence | CPT/HCPCS: 96127; 99397 ==

== ENCOUNTER 2025-02-04 11:17 | Outpatient (REF) | payer MEDICARE, SELFPAY ==
[2025-02-04 12:37] LABS: TSH reflex Free T4 4.15 uIU/mL (0.32-4.0)
[2025-02-04 13:29] LABS: Free T4 (Free Thyroxine) 1.11 ng/dL (0.71-1.85)
--- OUTSIDE RECORDS SUMMARY | 2025-02-04 13:30 | XMS_ITS | Patient Health Record ---
Author Organization [facility] Address [address] [place] [address] Care Team Providers Care Cardroom Manager Name Role Phone Ramon Agrawal Primary Care Provider Olman Miles Jr Unavailable [phone] Allergies Allergen (clinical drug ingredient) Drug/Non [...] Problem Status W/U Status Risk Notes Problem [id number] Colon cancer screening (Z12.11) Active confirmed Problem 985022564 Personal history of colonic polyps (Z86.010) Active confirmed Problem [id number] Visit for pre-operative examination (Z01.818) Active confirmed Plan Of Treatment Future Test Test Name Order Date COLONOSCOPY 01/16/2018 Insurance Providers Payer Name Payer Address Payer Phone Subscriber Number Group Number Insured Name Patient Relationship to Insured Coverage Start Date Coverage End Date [facility] [address] [place] [address] [phone] [id number] VIC PIMENTEL Self - patient is the insured Medical (General) History Medical History History ICD Code seasonal allergies hx of diverticulitis polycythemia- Dr. Guido Surgical History Surgery Date(Month/Year) wisdom teeth extraction 1972
== END 2025-02-04 11:18 | disposition home or self-care (01) ==
LOC: HO.LAB 11:17
PROVIDERS: PCP Physician Assistant; Visit Provider Physician Assistant
DX: E03.9 Hypothyroidism, unspecified (principal)
CPT/HCPCS: 36415; 84439; 84443

== ENCOUNTER 2025-03-02 09:36 | Outpatient (REF) | payer MEDICARE, SELFPAY ==
--- OUTSIDE RECORDS SUMMARY | 2025-03-02 10:16 | XMS_ITS | Clinical Summary ---
Author Organization [facility] ity Address [address] [place] [address] Care Team Providers Care Supervisor Airplane Flight Attendant Name Role Phone Unavailable Primary Care [...] Vaccines (1 of 2) 2004 COVID-19 Vaccine ( - 2023-2 5 season) 2024 Depression Screening 08/12/2024 Influenza Vaccine (#1) 2025 RSV Immunization Adult Patie nts (1 - 1-dose 75+ series) 2029 HIB [...] age to complete this topic Meningococcal B Vaccine Aged Out No l onger eligible based on patient's age to complete this topic RSV Immunization Patients Un tee 20 months Aged Out No longer eligible b ased on patient's age to complete this topic Varicella Vaccines Aged Out No longer eligible based on patient's age to complete this topic
--- OUTSIDE RECORDS SUMMARY | 2025-03-02 10:16 | XMS_ITS | Encounter Summary ---
Author Organization [facility] Address [address] [place] [phone] Phone Care Team Providers Care Recreation Clerk Name Role Phone Ramon Agrawal Primary Care Provider + Pedro Shahid DO Unavailable [phone] Ariel Ken MD Unavailable [phone] Roni Ordonez MD, FACS Unavailable [phone] Encounter Details Date Type Department Care Team (Late st Contact Info) Description 03/27/2024 Procedure Pass [facility] [address] [place] [address] [place] [address] Social History Tobacco Use Types Packs/Day Years [...] on file documented as of this encounter Plan of Treatment Upcoming Encounters Date Type Department Care Team (Late st Contact Info) Description 03/05/2025 11:45 AM EDT Office Visit [facility] [address] [place] [address] Roni Ordonez MD, [address] [place] [address] [email or web address] documented as of this encounter Visit Diagnoses Not on filedocumented in this encounter Care Teams Recreation Clerk Relationship Specialty Start Date End Date Ramon Agrawal PA [address] [place] [phone] PCP - General Physician Director [facility] 01/08/23 Pedro Shahid DO [address] [place] [address] [email or web address] Primary Oncologist Hematology and Oncology 01/08/23 Ariel Ken MD [facility] [place] [address] [email or web address] manager 01/14/23 Roni Ordonez MD, FACS [address] [place] [address] [place] [address] [email or web address] 01/18/23 documented as of this encounter Additional Source Comments The information contained in this document represents components of the legal health record. It is not the complete legal health record.[facility]
--- OUTSIDE RECORDS SUMMARY | 2025-03-02 10:16 | XMS_ITS | Patient Health Record ---
Author Organization [facility] Address [address] [place] [address] Care Team Providers Care Grades 9 Through 12 Teacher Name Role Phone Ramon Agrawal Primary Care [...] Problem Status W/U Status Risk Notes Problem [id number] Colon cancer screening (Z12.11) Active confirmed Problem 174452796 Personal history of colonic polyps (Z86.010) Active confirmed Problem [id number] Visit for pre-operative examination (Z01.818) Active confirmed Plan Of Treatment Future Test Test Name Order Date COLONOSCOPY 01/16/2018 Insurance Providers Payer Name Payer Address Payer Phone Subscriber Number Group Number Insured Name Patient Relationship to Insured Coverage Start Date Coverage End Date [facility] [address] [place] [address] [id number] VIC PIMENTEL Self - patient is the insured Medical (General) History Medical History History ICD Code seasonal allergies hx of diverticulitis polycythemia- Dr. Guido Surgical History Surgery Date(Month/Year) wisdom teeth extraction 1972
== END 2025-03-02 09:37 | disposition home or self-care (01) ==
LOC: HO.MAMMO 09:36
PROVIDERS: PCP Physician Assistant; Visit Provider Physician Assistant
DX: Z12.31 Encounter for screening mammogram for malignant neoplasm of breast (principal)
CPT/HCPCS: 77063; 77067

== ENCOUNTER → 2025-03-02 10:00 | Outpatient (BNV) | payer MEDICARE, SELFPAY | PROVIDERS: PCP Physician Assistant; Visit Provider Internal Medicine | DX: Z12.31 Encounter for screening mammogram for malignant neoplasm of breast (principal) | CPT/HCPCS: 77063; 77067 ==

== ENCOUNTER 2025-05-25 13:49 | Outpatient (REF) | payer MEDICARE, SELFPAY ==
--- NOTE | ~2025-05-25 | XR_ITS ---
EXAMINATION: XR CHEST CLINICAL INFORMATION: R68.89 - Other general symptoms and signs COMPARISON: None available. TECHNIQUE: 2 views of the chest were obtained. FINDINGS: Lungs are clear. Heart size is within normal limits. Bony structures demonstrate mild disc space narrowing and thoracic spine and small anterior osteophytes. XR/XR chest 2V IMPRESSION: No acute disease. Degenerative disc disease. Electronically signed by: Tod Mott MD 05/25/2025 02:59 PM EDT RP
[2025-05-25 15:29] LABS: Resp Syncy Virus RNA Qual PCR NEGATIVE (Negative); SARS COV2 PCR INHOUSE NEGATIVE (Negative)
--- OUTSIDE RECORDS SUMMARY | 2025-05-25 17:27 | XMS_ITS | Clinical Summary ---
Author Organization [facility] Address [address] [place] [address] Care Team Providers Care Management Accounts Manager Name Role Phone Unavailable Primary Care Provider [...] 2004 Zoster Vaccines (1 of 2) 2004 Depression Screening 08/12/2024 COVID-19 Vaccine (1 - 2023-2 5 season) 2025 Influenza Vaccine (#1) 2025 RSV Immunization Adult [...]
== END 2025-05-25 13:50 | disposition home or self-care (01) ==
LOC: HO.XRAY 13:49
PROVIDERS: PCP Physician Assistant; Visit Provider Internal Medicine
DX: R68.89 Other general symptoms and signs (principal)
CPT/HCPCS: 71046; 87637

== ENCOUNTER 2025-05-25 13:49 | Outpatient (AMB) | payer MEDICARE, SELFPAY ==
--- OUTSIDE RECORDS SUMMARY | 2023-02-06 | XMS_ITS | Encounter Summary ---
Author Organization [facility] Address [address] [facility] [address] [place] [address] Phone Care Team Providers Care Block Paver Name Role Phone Ramon Agrawal Primary Care Provider + Pedro Shahid DO Unavailable [phone] Ariel Ken MD Unavailable [phone] Roni Ordonez MD, FACS Unavailable [phone] Encounter Details Date Type Department Care Team (Late st Contact Info) Description 02/06/2023 Hospital Encounter [facility] [address] [place] [address] Roni Ordonez MD, FACS [address] [place], [place] [phone] [email or web address] Social History Tobacco Use Types Packs/Day Years [...] 5:18 PM EDT Samira Wheeler RN * [place] Suicide Severity Rating Scale (Screener/Recent Self-Report) Question [...] Visit [facility] [address] [place] [address] Roni Ordonez MD, FACS [address] [place] [address] [email or web address] documented as of this encounter Procedures Procedure [...] on filedocumented in this encounter Care Teams Block Paver Relationship Specialty Start Date End Date Ramon Agrawal PA [address] [place] [address] PCP - General Physician Electroplating Technician 01/08/23 Pedro Shahid DO [address] [place] [address] [email or web address] Primary Oncologist Hematology and Oncology 01/08/23 Ariel Ken MD [address] [place] [address] [email or web address] 01/14/23 Roni Ordonez MD, FACS [address] [place] [address] [email or web address] Otolaryngology 01/18/23 documented as of this encounter Additional Source Comments The information contained in this document represents components of the legal health record. It is not the complete legal health record.[facility]
[2025-05-25 13:59] VITALS: BP 122/68; PULSE 79; TEMP 36.3; O2SAT 97; BMI 28.7
--- NOTE | 2025-05-25 13:59 | MHC.PC.OV ---
Vital Signs 05/25/25 13:59 Height 5 ft 3 in Weight 162 lb BMI 28.7 BP 122/68 Blood Pressure Location Lt brachial Position Sitting Pulse 79 Pulse Source Pulse Oximeter Temp 97.3 F Temp Source Temporal Artery Scan Pulse Oximetry (%) 97 Oxygen Delivery Method Room Air Intake Visit Reasons: RSV Allergies latex (LATEX) Allergy (Unknown, Verified 05/25/25 14:02) HIVES/RASH morphine (MORPHINE) Allergy (Unknown, Verified 05/25/25 14:02) HIVES, rash powder in latex gloves Allergy (Unknown, Uncoded 05/25/25 14:02) rash Tobacco use date assessed: 05/25/25 Fall risk assessment: No Falls in past year Last assessed Fall Risk: 05/25/25 Dental Screening Dental Screen Date: 05/25/25 Did you have a dental visit in the last 12 months?: Yes Did you have a dental problem in the last 6 months where you did not have access to dental care?: No Was dental information given to patient?: Patient has dentist HPI HPI Comments History of Present Illness Details The patient is a 70-year-old female presenting with flu like symptoms. She reports being sick for about a month, with significant phlegm production, shortness of breath, and persistent coughing spells. Initially, she experienced a severe sore throat and fever, which have since improved. The patient has a history of radiation therapy for cancer, completed a year ago, with ongoing side effects including neck pain and occasional ear aches. The radiation was targeted at her soft palate and beneath her tongue, with one area surgically removed and the other treated with radiation. She has been using eepm-buw-rrtsubj medications such as DayQuil, NyQuil, and Mucinex, with limited relief, and has recently started using Robitussin DM. The patient also reports wheezing at night, which has been somewhat alleviated by elevating her head during sleep. She has an allergy to morphine, which is her only known drug allergy. [facility] Medical History Erythrocytosis Thyroid nodule Solar urticaria Osteopenia (~2015) Polycythemia HTN (hypertension) Surgical History History of lumbar laminectomy History of total left hip replacement History of mandibular surgery Family History Father Diabetes HTN (hypertension) Mother HTN (hypertension) Asthma Sister Afib CVA (cerebral vascular accident) Social History Household Members: Family and Children Housing: House Are you a primary youth care professional to a significant other at home: No Do you presently have visiting nurse or other home services: No Alcohol intake: current Alcohol intake frequency: a few times a week Alcohol type: beer Patient Tobacco Use Status: Former Tobacco user Cigarettes Per Day: 10 e-Cigarette/Vaping Use: Never Used Second Hand Smoke Exposure: No service: No Current occupational status: employed 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 1. Little interest or pleasure in doing things: not at all 2. Feeling down, depressed, or hopeless: not at all 3. Trouble falling or staying asleep, or sleeping too much: not at all 4. Feeling tired or having little energy: not at all 5. Poor appetite or overeating: not at all 6. Feeling bad about yourself - or that you are a failure or have let yourself or your family down: not at all 7. Trouble concentrating on things, such as reading the newspaper or watching television: not at all 8. Moving or speaking so slowly that other people could have noticed. Or the opposite - being so fidgety or restless that you have been moving around a lot more than usual: not at all 9. Thoughts that you would be better off or of hurting yourself in some way: not at all Total score: 0 Depression Screening Interpretation: Negative Depression Screening Done: Yes Source: Developed by Drs. Amadou Weber, Cecille Oshea, Tan Bello and colleagues, with an educational kiel from [employer] [place]. Thrive Questionnaire Date Thrive assessed: 12/24/24 I am a: Patient What is your living situation today?: I have a steady place to live Within the past 12 months, did the food you bought not last and you didn't have the money to get more?: Never true Within the past 12 months, did you worry whether your food would run out before you got money to buy more?: Never true Do you have trouble paying for medicines?: No Do you have trouble getting transportation to medical appointments?: No Do you have trouble paying your heating and electricity bill?: No Do you have trouble taking care of your child, family member or friend?: No Do you have trouble with day-to-day activities such as bathing, preparing meals, shopping, managing finances, etc.?: No Are you currently unemployed and looking for a job?: No Are you interested in more education?: No Please select the resources that you would like help with: None Currently or been in a relationship where the following occur: No concerns reported THRIVE Score: 0 AUDIT C Alcohol Use Questionnaire (AUDIT-C) 1. How often do you have a drink containing alcohol?: 2-4 times a month 2. How many drinks containing alcohol do you have on a typical day when you are drinking?: 1 or 2 3. How often do you have six or more drinks on one occasion?: Never Total Score: 2 MARY-7 AMB Questionnaire MARY-7 Date MARY - 7 assessed: 12/31/24 Feeling nervous, anxious, or on edge: 0 = Not at all Not being able to stop or control worryin = Not at all Worrying too much about different things: 0 = Not at all Trouble relaxin = Not at all Being so restless that it is hard to sit still: 0 = Not at all Becoming easily annoyed or irritable: 0 = Not at all Feeling afraid as if something awful might happen: 0 = Not at all Total MARY-7 score (0-4 normal; 5-9 mild; 10-14 moderate; 15-21 severe): 0 Source: Developed by Drs. Amadou Weber, Cecille Oshea, Tan Blelo and colleagues, with an educational kiel from [employer] [place]. Review of Systems Const Details: Positives besides what was mentioned in HPI are in BOLD Constitutional: No Weight Change, No Fever, No Chills, No Night Sweats, No Fatigue, No Malaise ENT/Mouth: No Hearing Changes, No Ear Pain, No Nasal Congestion, No Sinus Pain, No Hoarseness, No sore throat, No Rhinorrhea, No Swallowing Difficulty Eyes: No Eye Pain, No Swelling, No Redness, No Foreign Body, No Discharge, No Vision Changes Cardiovascular: No Chest Pain, No SOB, No PND, No Dyspnea on Exertion, No Orthopnea, No Claudication, No Edema, No Palpitations Respiratory: No Cough, No Sputum, No Wheezing, No Smoke Exposure, No Dyspnea Gastrointestinal: No Nausea, No Vomiting, No Diarrhea, No Constipation, No Pain, No Heartburn, No Anorexia, No Dysphagia, No Hematochezia, No Melena, No Flatulence, No Jaundice Genitourinary: No Dysmenorrhea, No DUB, No Dyspareunia, No Dysuria, No Urinary Frequency, No Hematuria, No Urinary Incontinence, No Urgency, No Flank Pain, No Urinary Flow Changes, No Hesitancy Musculoskeletal: No Arthralgias, No Myalgias, No Joint Swelling, No Joint Stiffness, No Back Pain, No Neck Pain, No Injury History Skin: No Skin Lesions, No Pruritis, No Hair Changes, No Breast/Skin Changes, No Nipple Discharge Neuro: No Weakness, No Numbness, No Paresthesias, No Loss of Consciousness, No Syncope, No Dizziness, No Headache, No Coordination Changes, No Recent Falls Psych: No Anxiety/Panic, No Depression, No Insomnia, No Personality Changes, No Delusions, No Rumination, No SI/HI/AH/VH, No Social Issues, No Memory Changes, No Violence/Abuse Hx., No Eating Concerns Heme/Lymph: No Bruising, No Bleeding, No Transfusions History, No Lymphadenopathy Endocrine: No Polyuria, No Polydipsia, No Temperature Intolerance Physical exam (Primary Care) Vital Signs: Last Vital Signs Temp 97.3 F 05/25/25 13:59 Pulse 79 05/25/25 13:59 BP 122/68 05/25/25 13:59 Pulse Ox 97 05/25/25 13:59 Oxygen Delivery Method Room Air 05/25/25 13:59 BMI result Body Mass Index 28.7 Tobacco/Smoking Status: Tobacco use Status Tobacco use date assessed 05/25/25 05/25/25 14:04 Patient Tobacco Use Status Former Tobacco user 05/25/25 14:04 Tobacco use type 12/31/23 14:00 e-Cigarette/Vaping Use Never Used 05/25/25 14:04 PHQ-9: PHQ-9 Score PHQ-9: Total score 0 05/25/25 14:04 Depression Screening Interpretation: Negative Thrive Assessment: Date of Thrive Assessment Date Thrive assessed 12/24/24 05/25/25 14:04 Currently or been in a relationship where the following occur: No concerns reported Const Other: Pertinent findings are in BOLD GENERAL APPEARANCE NAD, activity normal for age, well developed/ well nourished, no cyanosis, pallor, or diaphoresis. EYES lids/conjunctiva normal. EARS/NOSE/THROAT Mucous membranes moist, nares normal, lips/teeth normal uvula midline without oral pharyngeal erythema, exudate or swelling TMs normal bilaterally. No lymphangitis/lymphedema. HEAD/NECK normocephalic atraumatic, no facial trauma, neck is supple. Mild throat erythema. RESPIRATORY respiratory effort normal, speaks in full sentences, no tripod position, no accessory muscle use. Lungs clear to auscultation without rhonchi, wheezes, rales. CARDIAC Regular rate and rhythm, no edema. ABDOMINAL Soft, ND/NT. No evidence of fluid wave. No pulsatile masses on exam, rebound tenderness, Damon sign or pain over Mcburney's point. MUSCLES/EXTREMITIES No abnormal range of motion, no swelling. SKIN Warm, pink and dry. No rashes, dermatoses, petechiae or lesions. NEUROLOGICAL Speech is clear and appropriate. Normal level of consciousness. Gait and coordination are normal. 5/5 strength in all extremities. PSYCH Normal mood and affect. Judgement/competence is appropriate Coding Level of Care Code Est Pt Level 3 (55749) Diagnoses Flu-like symptoms R68.89 Assessment & Plan Assessment & Plan (1) Flu-like symptoms: Code(s): R68.89 - Other general symptoms and signs Category: Medical Plan: - Plan to perform a swab test to check for RSV, influenza, and COVID-19. - Prescribed prednisone 20 mg daily for 5 days to reduce inflammation. - Prescribed azithromycin 250 mg, with two doses on the first day followed by one dose daily for five days. - Recommended chest x-ray to rule out pneumonia or other complications due to history of radiation. Plan I discussed with the patient the plan to perform a swab test to check for RSV, influenza, and COVID-19, and the need for a chest x-ray to rule out pneumonia due to her history of radiation therapy. I explained the prescription of prednisone to reduce inflammation and azithromycin as an antibiotic treatment. Orders: Orders XR chest 2V Today R68.89 - Other general symptoms and signs SARS-CoV2/FLU/RSV Today R68.89 - Other general symptoms and signs Medications: New prednisone 20 mg PO DAILY 5 tabs 0RF benzonatate 100 mg PO BID PRN 20 caps 0RF cough azithromycin start on day 2 of therapy 250 mg PO DAILY 6 tabs 0RF 6 days
--- OUTSIDE RECORDS SUMMARY | 2025-05-25 16:50 | XMS_ITS | Encounter Summary ---
Author Organization [facility] Address [address] [facility] [address] [place] [address] Phone Care Team Providers Care Well Blower Name Role Phone Ramon Agarwal Primary Care Provider + Pedro Shahid DO Unavailable [phone] Ariel Ken MD Unavailable [phone] Roni Ordonez MD, FACS Unavailable [phone] Encounter Details Date Type Department Care Team (Late st Contact Info) Description 03/27/2024 Procedure Pass [facility] - [facility] Main [place] [address] [place] [address] Social History Tobacco Use Types Packs/Day Years [...] Description 07/16/2025 11:00 AM EST Office [place] [facility] [address] [place] [address] Roni Ordonez MD, FACS [address] [place] [address] [email or web address] documented as of this encounter Visit Diagnoses Not on filedocumented in this encounter Care Teams Well Blower Relationship Specialty Start Date End Date Ramon Agrawal PA [address] [place] [address] PCP - General Physician Fire Prevention Bureau Captain 01/08/23 Pedro Shahid DO [address] [place] [address] [email or web address] [email or web address] Primary Oncologist Hematology and Oncology 01/08/23 Ariel Ken MD [facility]6 [place] [address] [email or web address] 01/14/23 Roni Ordonez MD, FACS [address] [place] [address] [email or web address] Otolaryngology 01/18/23 documented as of this encounter Additional Source Comments The information contained in this document represents components of the legal health record. It is not the complete legal health record.[facility]
--- OUTSIDE RECORDS SUMMARY | 2025-05-25 16:50 | XMS_ITS | Encounter Summary ---
Author Organization [facility] Address [address] [facility] [address] [place] [address] Phone Care Team Providers Care Concession Stand Attendant Name Role Phone Ramon Agrawal Primary Care Provider + Pedro Shahid DO Unavailable [phone] Ariel Ken MD Unavailable [phone] Roni Ordonez MD, FACS Unavailable [phone] Encounter Details Date Type Department Care Team (Late st Contact Info) Description 07/20/2024 Procedure Pass [facility] - CT Main [place] [address] [place] [address] Social History Tobacco Use Types Packs/Day Years [...] Description 07/16/2025 11:00 AM EST Office Visit [facility] [address] [place] [address] Roni Ordonez MD, FACS [address] [place] [address] [email or web address] documented as of this encounter Visit Diagnoses Not on filedocumented in this encounter Care Teams Concession Stand Attendant Relationship Specialty Start Date End Date Ramon Agrawal PA [address] [place] [address] PCP - General Physician Software Design Analyst 01/08/23 Pedro Shahid DO [address] [place] [address] [email or web address] .[facility] Primary Oncologist Hematology and Oncology 01/08/23 Ariel Ken MD [facility]6 [place] [address] [email or web address] 01/14/23 Roni Ordonez MD, FACS [address] [place] [address] [email or web address] Otolaryngology 01/18/23 documented as of this encounter Additional Source Comments The information contained in this document represents components of the legal health record. It is not the complete legal health record.[facility]
--- OUTSIDE RECORDS SUMMARY | 2025-05-25 16:50 | XMS_ITS | Encounter Summary ---
Author Organization [facility] Address [address] [facility] [address] [place] [address] Phone Care Team Providers Care Animal Maintenance Supervisor Name Role Phone Ramon Agrawal Primary Care Provider + Pedro Shahid DO Unavailable [phone] Ariel Ken MD Unavailable [phone] Roni Ordonez MD, FACS Unavailable [phone] Encounter Details Date Type Department Care Team (Late st Contact Info) Description 07/20/2024 Procedure Pass [facility] - CT Main [place] [address] [place] [address] Social History Tobacco Use Types Packs/Day Years [...] Description 07/16/2025 11:00 AM EST Office Visit [facility] [address] [place] [address] Roni Ordonez MD, FACS [address] [place] [address] [email or web address] documented as of this encounter Visit Diagnoses Not on filedocumented in this encounter Care Teams Animal Maintenance Supervisor Relationship Specialty Start Date End Date Ramon Agrawal PA [address] [place] [address] PCP - General Physician Dowel Pin Man 01/08/23 Pedro Shahid DO [address] [place] [address] [email or web address] [facility] Primary Oncologist Hematology and Oncology 01/08/23 Ariel Ken MD [facility] [place] [address] [email or web address] 01/14/23 Roni Ordonez MD, FACS [address] [place] [address] [email or web address] Otolaryngology 01/18/23 documented as of this encounter Additional Source Comments The information contained in this document represents components of the legal health record. It is not the complete legal health record.[facility]
--- OUTSIDE RECORDS SUMMARY | 2025-05-25 16:50 | XMS_ITS | Encounter Summary ---
Author Organization [facility] Address [address] [facility] [address] [place] [address] Phone Care Team Providers Care Store Custodian Name Role Phone Ramon Agrawal Primary Care Provider + Pedro Shahid DO Unavailable [phone] Ariel Ken MD Unavailable [phone] Roni Ordonez MD, FACS Unavailable [phone] Encounter Details Date Type Department Care Team (Late st Contact Info) Description 09/03/2023 Procedure Pass [facility] [address] [place] [address] Social History Tobacco Use Types Packs/Day Years [...] Description 07/16/2025 11:00 AM EST Office Visit [facility] [address] [place] [address] Roni Ordonez MD, FACS [address] [place] [address] [email or web address] documented as of this encounter Visit Diagnoses Not on filedocumented in this encounter Care Teams Store Custodian Relationship Specialty Start Date End Date Ramon Agrawal PA [address] [place] [address] PCP - General Physician Pattern Puncher 01/08/23 Pedro Shahid DO [address] [place] [address] [email or web address] [facility] Primary Oncologist Hematology and Oncology 01/08/23 Ariel Ken MD [facility] [place] [address] [email or web address] 01/14/23 Roni Ordonez MD, FACS [address] [place] [address] [email or web address] Otolaryngology 01/18/23 documented as of this encounter Additional Source Comments The information contained in this document represents components of the legal health record. It is not the complete legal health record.[facility]
--- OUTSIDE RECORDS SUMMARY | 2025-05-25 16:50 | XMS_ITS | Encounter Summary ---
Author Organization [facility] Address [address] [facility] [address] [place] [address] Phone Care Team Providers Care Power Bender Operator Name Role Phone Ramon Agrawal Primary Care Provider + Pedro Shahid DO Unavailable [phone] Ariel Ken MD Unavailable [phone] Roni Ordonez MD, FACS Unavailable [phone] Encounter Details Date Type Department Care Team (Late st Contact Info) Description 04/03/2023 Procedure Pass [facility] - CT Main [place] [address] [place] [address] Social History Tobacco Use Types Packs/Day Years Used Date Smoking Tobacco: Every Day Cigarettes 0.3 51.8 Started: 1974 Smokeless Tobacco: Never Alcohol Use Standard Drinks/Week Comments Yes 24 (1 standard drink = 0.6 oz pure [...] with a working camera? Not on file Comments No Sex and Gender Information Value [...] Visit [facility] [address] [place] [address] Roni Ordonez MD, FACS [address] [place] [address] [email or web address] documented as of this encounter Visit Diagnoses Not on filedocumented in this encounter Care Teams Power Bender Operator Relationship Specialty Start Date End Date Ramon Agrawal PA [address] [place] [address] PCP - General Physician Salt Machine Operator 01/08/23 Pedro Shahid DO [address] [place] [address] [email or web address] Primary Oncologist Hematology and Oncology 01/08/23 Ariel Ken MD [address] [place] [address] [email or web address] 01/14/23 Roni Ordonez MD, FACS [address] [place] [address] [email or web address] Otolaryngology 01/18/23 documented as of this encounter Additional Source Comments The information contained in this document represents components of the legal health record. It is not the complete legal health record.[facility]
--- OUTSIDE RECORDS SUMMARY | 2025-05-25 16:50 | XMS_ITS | Clinical Summary ---
Author Organization [facility] Address [address] [address] Phone Care Team Providers Care Statistical Technician Name Role Phone Ramon Agrawal Primary Care Provider + Pedro Shahid DO Unavailable [phone] Ariel Ken MD Unavailable [phone] Roni Ordonez MD, FACS Unavailable [phone] Allergies Active Allergy Reactions Criticality Noted Date Comments Flurandrenolide 01/16/2023 Other reaction(s): rash redness Latex Swelling,Rash Low 01/16/2023 Powder in gloves Morphine Rash Low 06/22/2020 Other reaction(s): rash face ,neck Medications lisinopril (PRINIVIL,ZESTR IL) 10 MG tablet Take 20 mg by mouth every morning. 3 Active b complex vitamins capsule Take 1 capsule by mouth daily. Active acetaminophen (TYLENOL) 325 mg tablet Take 650 mg by mouth every 6 (six) hours as needed for pain (specific location in comments). Active ibuprofen (ADVIL,MOTRIN) 400 MG tablet Take 400 mg by mouth every 6 (six) hours as needed for pain (specific location in comments). Sometimes 600mg Active levothyroxine (SYNTHROID, LEVOTHROID) 50 MCG tablet Take 1 tablet by mouth every morning. 5 Active Active Problems Patient Care Coordination No te Formatting of this note migh t be different from the original. Height 156.1cm no shoes. 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 Cancer Staging:Clinical stage from 07/18/2023:Stage II(cT2, cN0, cM0, p16: Not assessed, HPV: Not assessed) - Signed by Jeff Conrad MD on 07/30/2023 Primary hypertension 07/18/2023 Current smoker 07/18/2023 Pulmonary emphysema 07/18/2023 Cancer of head and neck 03/19/2023 Encounters Date Type Department Care Team Description 03/05/2025 11:30 AM EDT Office Visit [facility] Head and Neck Cancer Division [address] [place] [address] Roni Ordonez MD, FACS Oral cancer (Primary Dx) from Last 3 Months Immunizations Immunization Administration Dates Next Due Influenza High-Dose Quadrivalent Preservative Fr ee IM 06/22/2020 Social History Tobacco Use Types Packs/Day Years Used Date Smoking Tobacco: Former Cigarettes 0.3 49.8 1 974 - 06/2023 Smokeless Tobacco: Never Tobacco Cessation:Counseling Given: Not Answered Comments:Quit for one month after 03/2023 surgery [...] PM EST Sexual Orientation Not on file Last Filed Vital Signs Vital Sign Reading Time Taken Comments Blood Pressure 165/90 12/05/2023 10:27 AM EDT Pulse 71 12/05/2023 10:27 AM EDT Temperature 36.8 C (98.2 F) 10/14/2023 2:35 PM EST Respiratory Rate 16 10/14/2023 2:35 PM EST Oxygen Saturation 98% 12/05/2023 10:27 AM EDT Inhaled Oxygen Concentration - - Weight 66.2 kg (146 lb) 03/05/2025 11:10 AM EDT Height 152.4 cm (5') 03/05/2025 11:10 AM EDT Body Mass Index 28.51 03/05/2025 11:10 AM EDT Plan of Treatment Upcoming Encounters Date Type Department Care Team (Late st Contact Info) Description 07/16/2025 11:00 AM EST Office Visit [facility] Head and Neck Cancer Division [address] [place] [address] Roni Ordonez MD, FACS [address] [place] [address] [email or web address] Health Maintenance Due Date Last Done Comments LIPID PANEL 1954 TSH LEVEL 1954 DEPRESSION SCREENING 1966 HEPATITIS C SCREENING 1972 MAMMOGRAM 1994 COLOGUARD 1999 COLONOSCOPY 1999 COLORECTAL CANCER SCREENING 1999 FIT TEST 1999 FOBT 1999 SIGMOIDOSCOPY 1999 VIRTUAL COLONOSCOPY 1999 OSTEOPOROSIS SCREENING INITIAL (ONE-TIME) 2019 PNEUMOCOCCAL VACCINES (50+ years) (3 of 3 - PCV) 08/30/2022 08/30/2021, 06/16/2015 BLOOD PRESSURE 06/05/2024 12/05/2023 CREATININE LEVEL 08/30/2024 08/30/2023, , 02/15/2023 POTASSIUM LEVEL 08/30/2024 08/30/2023, 02/09, 02/15/2023 INFLUENZA VACCINE (#1) 2025 , 06/03/2022, 05/10/2021, Additional history exists COVID-19 VACCINE ( season) 2025 07/10/2023, 06/05/2022, 03/19/2022, Additional history exists Adult Td,Tdap Booster 06/16/2025 06/16/2015 SMOKING Hx and SMOKELESS TOBACCO SCREENING 03/05/2026 03/05/2025 ZOSTER VACCINES Completed 07/28/2018, 02/02/2018 RSV VACCINE Completed 07/10/2023 HEPATITIS A VACCINES Aged Out No long er eligible based on patient's age to complete this topic HIB VACCINES Aged Out No longer eligi ble based on patient's age to complete this topic MENINGOCOCCAL VACCINES (ACWY) Aged Out No longer eligible based on patient's age to complete this topic MENINGOCOCCAL VACCINES (B) Aged Out N o longer eligible based on patient's age to complete this topic Medical Devices Implanted Type Area Event Marketing Manager Device Identifier Shelf Expiration Date Model / Serial / Lot Left Thr Procedures Procedure Name Priority Date/Time Associated Diagnosis Comments COMPREHENSIVE METABOLIC PANEL Routine 08/30/2023 12:32 PM EST Oropharyngeal cancer from Last 3 Months or Most Recently Relevant to Health Maintenance Results * (ABNORMAL) Comprehensive metabolic panel (08/30/2023 12:32 PM EST) SODIUM 141 133 - 146 mmol/L [facility] POTASSIUM 3.6 3.3 - 5.1 mmol/L [facility] CHLORIDE 100 96 - 108 mmol/L [facility] CO2 29 21 - 35 mmol/L [facility] BUN 15 6 - 19 mg/dL [facility] CREATININE 0.60 0.5 - 1.5 mg/dL [facility] GLUCOSE 48(LL) 70 - 99 mg/dL [facility] Comment: Critical value: Results called to and read back by: DOUG Raymond AT 1847 ALBUMIN 4.3 3.9 - 4.8 g/dL [facility] TOTAL PROTEIN 7.4 6.5 - 8.0 g/dL [facility] CALCIUM 9.7 8.4 - 10.3 mg/dL [facility] ALKALINE PHOSPHATASE 104 39 - 117 U/L [facility] TOTAL BILIRUBIN 0.3 0.0 - 1.2 mg/dL [facility] AST 16 0 - 37 U/L [facility] ALT 11 0 - 40 U/L [facility] GLOBULIN 3.1 1 - 4.8 g/dL [facility] EGFR 97 >59 mL/min/1.7 3m2 [facility] Comment:Estimated glomerular filtration rate calculated using the CKD-EPI refit equation. ANION GAP 16 10 - 20 mmol/L [facility] Blood 08/30/2023 12:3 2 PM EST 08/30/2023 12:36 PM EST us Doug Handy MD LAB BLOOD ORDERABLES Final Res ult [facility] [address] [place] [address] from Last 3 Months or Most Recently Relevant to Health Maintenance Insurance [place]IC[place] PPO [place] [address] [place] [address] MEDICARE PPO BLUE REPLACEMENT [facility] MEDICARE PPO BLUE [place] [address] [address] [place] [address] MEDICARE PPO BLUE REPLACEMENT [facility] MEDICARE PPO BLUE REPLACEMENT [facility] MEDICARE PPO BLUE REPLACEMENT Advance Directives For more information, please contact: [phone] (9AM - 5PM 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 07/22/2023 3:07 PM * Full Code (Latest Code Status on File) Date Activated Date Inactivated Comments 03/19/2023 3:56 PM Question Answer Comments Code Status Confirmed With: Patient Care Teams Statistical Technician Relationship Specialty Start Date End Date Ramon Agrawal PA [address] [place] [address] PCP - General Physician Aluminizer 01/08/23 Pedro Shahid DO [address] [place] [address] [email or web address] [facility] Primary Oncologist Hematology and Oncology 01/08/23 Ariel Ken MD [address] [place] [address] [email or web address] auto repair teacher 01/14/23 Roni Ordonez MD, FACS [address] [place] [address] [email or web address] Otolaryngology 01/18/23 Additional Source Comments The information contained in this document represents components of the legal health record. It is not the complete legal health record.[facility]
--- OUTSIDE RECORDS SUMMARY | 2025-05-25 16:50 | XMS_ITS | Encounter Summary ---
Author Organization [facility] Address [address] [facility] [address] [place] [address] Phone Care Team Providers Care Radiologist Diagnostic Name Role Phone Ramon Agrawal Primary Care Provider + Pedro Shahid DO Unavailable [phone] Ariel Ken MD Unavailable [phone] Roni Ordonez MD, FACS Unavailable [phone] Encounter Details Date Type Department Care Team (Late st Contact Info) Description 07/18/2023 Procedure Pass [facility]IOP DEPT [address] [place] [address] Social History Tobacco Use Types Packs/Day Years Used Date Smoking Tobacco: Every Day Cigarettes 0.3 51.8 Started: 1974 Smokeless Tobacco: Never Comments:Quit for one month after 03/2023 surgery (4 cigarettes a day now). Alcohol Use Standard Drinks/Week Comments Yes 7 (1 standard drink = 0.6 oz [...] [facility] [address] [place] [address] Roni Ordonez MD, FACS [address] [place] [address] [email or web address] documented as of this encounter Visit Diagnoses Not on filedocumented in this encounter Care Teams Radiologist Diagnostic Relationship Specialty Start Date End Date Ramon Agrawal PA [address] [place] [address] PCP - General Physician Glass Selector 01/08/23 Pedro Shahid DO [address] [place] [address] [email or web address] Primary Oncologist Hematology and Oncology 01/08/23 Ariel Ken MD [address] [place] [address] [email or web address] director [email or web address] 01/14/23 Roni Ordonez MD, FACS [address] [place] [address] [email or web address] Otolaryngology 01/18/23 documented as of this encounter Additional Source Comments The information contained in this document represents components of the legal health record. It is not the complete legal health record.[facility]
--- OUTSIDE RECORDS SUMMARY | 2025-05-25 16:50 | XMS_ITS | Encounter Summary ---
Author Organization [facility] Address 399 [facility] [address] [place] [address] Phone Care Team Providers Care In Store Demonstrator Name Role Phone Ramon Agrawal Primary Care Provider + Pedro Shahid DO Unavailable [phone] Ariel Ken MD Unavailable [phone] Roni Ordonez MD, FACS Unavailable [phone] Encounter Details Date Type Department Care Team (Late st Contact Info) Description 11/19/2023 Procedure Pass [facility] Cardiovascular And Interventional Radiology [address] [place] [address] Social History Tobacco Use Types Packs/Day Years [...] Description 07/16/2025 11:00 AM EST Office Visit [facility] Head and Neck Cancer Division [address] [place] [address] Roni Ordonez MD, FACS [address] [place] [address] [email or web address] documented as of this encounter Visit Diagnoses Not on filedocumented in this encounter Care Teams In Store Demonstrator Relationship Specialty Start Date End Date Ramon Agrawal PA [address] [place] [address] PCP - General Physician Gas Examiner 01/08/23 Pedro Shahid DO 30 [place] [address] LESLIE@[email or web address] Primary Oncologist Hematology and Oncology 01/08/23 Ariel Ken MD [facility]6 [place] [address] Sarah@[email or web address] 01/14/23 Roni Ordonez MD, FACS [address] [place] [address] [email or web address] Otolaryngology 01/18/23 documented as of this encounter Additional Source Comments The information contained in this document represents components of the legal health record. It is not the complete legal health record.[facility]
--- OUTSIDE RECORDS SUMMARY | 2025-05-25 16:50 | XMS_ITS | Encounter Summary ---
Author Organization [facility] Address [address] [facility] [address] [place] [address] Phone Care Team Providers Care Manager Of Patient Name Role Phone Ramon Agrawal Primary Care Provider + Pedro Shahid DO Unavailable [phone] Ariel Ken MD Unavailable [phone] Roni Ordonez MD, FACS Unavailable [phone] Encounter Details Date Type Department Care Team (Late st Contact Info) Description 04/03/2023 Procedure Pass [facility] - CT Main [place] [address] [place] [address] Social History Tobacco Use Types Packs/Day Years [...] [facility] [address] [place] [address] Roni Ordonez MD, FACS [address] [place] [address] [email or web address] documented as of this encounter Visit Diagnoses Not on filedocumented in this encounter Care Teams Manager Of Patient Relationship Specialty Start Date End Date Ramon Agrawal PA [address] [place] [address] PCP - General Physician Cellophane Worker 01/08/23 Pedro Shahid DO [address] [place] [address] LESLIE@[email or web address] Primary Oncologist Hematology and Oncology 01/08/23 Ariel Ken MD [address] [place] [address] Sarah@[email or web address] field [email or web address] operations man 01/14/23 Roni Ordonez MD, FACS [address] [place] [address] [email or web address] Otolaryngology 01/18/23 documented as of this encounter Additional Source Comments The information contained in this document represents components of the legal health record. It is not the complete legal health record.[facility]
--- OUTSIDE RECORDS SUMMARY | 2025-05-25 16:50 | XMS_ITS | Encounter Summary ---
Author Organization [facility] Address 399 [facility] [address] [place] [address] Phone Care Team Providers Care Sand Mill Grinder Name Role Phone Ramon Agrawal Primary Care Provider + Pedro Shahid DO Unavailable [phone] Ariel Ken MD Unavailable [phone] Roni Ordonez MD, FACS Unavailable [phone] Encounter Details Date Type Department Care Team (Late st Contact Info) Description 11/20/2023 Procedure Pass [facility] Cardiovascular And Interventional Radiology [address] [place] [address] Social History Tobacco Use Types Packs/Day Years [...] Description 07/16/2025 11:00 AM EST Office Visit [facility] Cancer Division [address] [place] [address] Roni Ordonez MD, FACS [address] [place] [address] Earl@[email or web address] documented as of this encounter Visit Diagnoses Not on filedocumented in this encounter Care Teams Sand Mill Grinder Relationship Specialty Start Date End Date Ramon Agrawal PA [address] [place] [address] PCP - General Physician Clinical Exercise Physiologist 01/08/23 Pedro Shahid DO 30 [place] [address] [email or web address] Primary Oncologist Hematology and Oncology 01/08/23 Ariel Ken MD [facility]6 [place] [address] Sarah@[email or web address] software design engineer 01/14/23 Roni Ordonez MD, FACS [address] [place] [address] Earl@[email or web address] Otolaryngology 01/18/23 documented as of this encounter Additional Source Comments The information contained in this document represents components of the legal health record. It is not the complete legal health record.[facility]
--- OUTSIDE RECORDS SUMMARY | 2025-05-25 16:50 | XMS_ITS | Encounter Summary ---
Author Organization [facility] Address 399 [facility] [address] [place] [address] Phone Care Team Providers Care Bearing Grinder Name Role Phone Ramon Agrawal Primary Care Provider + Pedro Shahid DO Unavailable [phone] Ariel Ken MD Unavailable [phone] Roni Ordonez MD, FACS Unavailable [phone] Encounter Details Date Type Department Care Team ([facility] Contact Info) Description 01/21/2023 Procedure Pass [facility] - CT Main [place] [address] [place] [address] Social History Tobacco Use Types Packs/Day Years Used Date Smoking Tobacco: Every Day Cigarettes Alcohol Use Standard Drinks/Week Comments Yes 24 (1 standard drink = 0.6 oz pu re alcohol) Education Answer Date Recorded Are you interested in more education? Not on dario e 01/08/2023 Are you concerned about learning? Not on file 01/08/2023 No 01/08/2023 No 01/08/2023 Digital Access Answer Date Recorded No 01/08/2023 No 01/08/2023 Reliable internet access at home? Not on file 01/08/2023 Device with a working camera? Not on file Comments Unknown Sex and Gender Information Value [...] [facility] [address] [place] [address] Roni Ordonez MD, FACS [address] [place] [address] [email or web address] documented as of this encounter Visit Diagnoses Not on filedocumented in this encounter Care Teams Bearing Grinder Relationship Specialty Start Date End Date Ramon Agrawal PA [address] [place] [address] PCP - General Physician Supervisor Statement Clerks 01/08/23 ePdro Shahid DO [address] [place] [address] LESLIE@[email or web address] Primary Oncologist Hematology and Oncology 01/08/23 Ariel Ken MD [address] [place] [address] Sarah@[email or web address] human geography faculty member 01/14/23 Roni Ordonez MD, FACS [address] [place] [address] [email or web address] Otolaryngology 01/18/23 documented as of this encounter Additional Source Comments The information contained in this document represents components of the legal health record. It is not the complete legal health record.[facility]
--- OUTSIDE RECORDS SUMMARY | 2025-05-25 16:50 | XMS_ITS | Encounter Summary ---
Author Organization [facility] Address 399 [facility] [address] [place] [address] Phone Care Team Providers Care Sanipractic Physician Name Role Phone Ramon Agrawal Primary Care Provider + Pedro Shahid DO Unavailable [phone] Ariel Ken MD Unavailable [phone] Roni Ordonez MD, FACS Unavailable [phone] Encounter Details Date Type Department Care Team (Late st Contact Info) Description 12/12/2023 Procedure Pass [facility] Cardiovascular And Interventional Radiology [address] [place] [address] Social History Tobacco Use Types Packs/Day Years [...] [facility] [address] [place] [address] Roni Ordonez MD, FACS [address] [place] [address] [email or web address] documented as of this encounter Visit Diagnoses Not on filedocumented in this encounter Care Teams Sanipractic Physician Relationship Specialty Start Date End Date Ramon Agrawal PA [address] [place] [address] PCP - General Physician Warp Knitter Helper 01/08/23 Pedro Shahid DO 30 [place] [address] LESLIE@[email or web address].[email or web address] [facility] Primary Oncologist Hematology and Oncology 01/08/23 Ariel Ken MD [facility]6 [place] [address] Sarah@[email or web address] supervisor 01/14/23 Roni Ordonez MD, FACS [address] [place] [address] [email or web address] Otolaryngology 01/18/23 documented as of this encounter Additional Source Comments The information contained in this document represents components of the legal health record. It is not the complete legal health record.[facility]
--- OUTSIDE RECORDS SUMMARY | 2025-05-25 16:50 | XMS_ITS | Encounter Summary ---
Author Organization [facility] Address 399 [facility] [address] [place] [address] Phone Care Team Providers Care Health Sciences Department Chair Name Role Phone Ramon Agrawal Primary Care Provider + Pedro Shahid DO Unavailable [phone] Ariel Ken MD Unavailable [phone] Roni Ordonez MD, FACS Unavailable [phone] Encounter Details Date Type Department Care Team (Late st Contact Info) Description 03/27/2024 Procedure Pass [facility] - CT Main [place] [address] [place] [address] Social History Tobacco Use Types Packs/Day Years [...] Description 07/16/2025 11:00 AM EST Office Visit [facility] Head and Neck Cancer Division [address] [place] [address] Roni Ordonez MD, FACS [address] [place] [address] [email or web address] documented as of this encounter Visit Diagnoses Not on filedocumented in this encounter Care Teams Health Sciences Department Chair Relationship Specialty Start Date End Date Ramon Agrawal PA [address] [place] [address] PCP - General Physician Head Of Ethics And Compliance 01/08/23 Pedro Shahid DO 30 [place] [address] LESLIE@[email or web address] [facility] Primary Oncologist Hematology and Oncology 01/08/23 Ariel Ken MD [facility]6 [place] [address] [email or web address] first aid director 01/14/23 Roni Ordonez MD, FACS [address] [place] [address] [email or web address] Otolaryngology 01/18/23 documented as of this encounter Additional Source Comments The information contained in this document represents components of the legal health record. It is not the complete legal health record.[facility]
--- OUTSIDE RECORDS SUMMARY | 2025-05-25 16:50 | XMS_ITS | Encounter Summary ---
Author Organization [facility] Address [address] [employer] [address] [place] [address] Phone Care Team Providers Care Bond Analyst Name Role Phone Ramon Agrawal Primary Care Provider + Pedro Shahid DO Unavailable [phone] Ariel Ken MD Unavailable [phone] Roni Ordonez MD, FACS Unavailable [phone] Encounter Details Date Type Department Care Team (Late st Contact Info) Description 03/19/2023 Procedure Pass [facility] PERIOP DEPT [address] [place] [address] Social History Tobacco Use Types Packs/Day Years [...] 5:18 PM EDT Samira Wheeler RN * Ashley Suicide Severity Rating Scale (Screener/Recent Self-Report) Question [...] Description 07/16/2025 11:00 AM EST Office Visit [facility] Cancer Division [address] [place] [address] Roni Ordonez MD, FACS [address] [place] [address] [email or web address] documented as of this encounter Visit Diagnoses Not on filedocumented in this encounter Care Teams Bond Analyst Relationship Specialty Start Date End Date Ramon Agrawal PA [address] [place] [address] PCP - General Physician Immigration Attorney 01/08/23 Pedro Shahid DO [address] [place] [address] LESLIE@[email or web address].[email or web address] [facility] Primary Oncologist Hematology and Oncology 01/08/23 Ariel Ken MD [facility]6 [place] [address] [email or web address] 01/14/23 Roni Ordonez MD, FACS [address] [place] [address] [email or web address] Otolaryngology 01/18/23 documented as of this encounter Additional Source Comments The information contained in this document represents components of the legal health record. It is not the complete legal health record.[facility]
--- OUTSIDE RECORDS SUMMARY | 2025-05-25 16:50 | XMS_ITS | Encounter Summary ---
Author Organization [facility] Address [address] [facility] [address] [place] [address] Phone Care Team Providers Care Landcare Facilitator Name Role Phone Ramon Agrawal Primary Care Provider + Pedro Shahid DO Unavailable [phone] Ariel Ken MD Unavailable [phone] Roni Ordonez MD, FACS Unavailable Encounter Details Date Type Department Care Team (Late st Contact Info) Description 07/24/2023 Ancillary Orders [facility] - Ultrasound, Main [place] [address] [place] [address] Roni Ordonez MD, FACS [address] [place] [address] [email or web address] Enlarged lymph nodes (Primary Dx) Social History Tobacco Use Types Packs/Day Years [...] Visit [facility] [address] [place] [address] Roni Ordonez MD, FACS [address] [place] [address] [email or web address] documented as of this encounter Visit Diagnoses Diagnosis Enlarged lymph nodes- Primary Enlargement of lymph nodes documented in this encounter Care Teams Landcare Facilitator Relationship Specialty Start Date End Date Ramon Agrawal PA [address] [place] [address] PCP - General Physician Carcass Washer 01/08/23 Pedro Shahid DO [address] [place] [address] [email or web address] Primary Oncologist Hematology and Oncology 01/08/23 Ariel Ken MD [address] [place] [address] [email or web address] eye [email or web address] 01/14/23 Roni Ordonez MD, FACS [address] [place] [address] [email or web address] Otolaryngology 01/18/23 documented as of this encounter Additional Source Comments The information contained in this document represents components of the legal health record. It is not the complete legal health record.[facility]
--- OUTSIDE RECORDS SUMMARY | 2025-05-25 16:50 | XMS_ITS ---
Author Organization [facility] Address [address] [facility] [address] [place] [address] Phone Care Team Providers Care Lithographic Plate Maker Name Role Phone Ramon Agrawal Primary Care Provider + Pedro Shahid DO Unavailable Ariel Ken MD Unavailable [phone] Roni Ordonez MD, FACS Unavailable [phone] Active Problems Patient Care Coordination No te [...] 07/18/2023 Cancer of head and neck 03/19/2023 Current Treatment and Therapy Plans No current plan information found. Past Treatment and Therapy Plans No past plan information found. Lifetime Dose Tracking * Chemical Lifetime Dose Automatic Entry Manual Entr y Invasive Cardiology Radiation Exposure 9 mGy 0 mGy 9 mGy 2. DAP 145.93 uGy-m2 0 uGy-m2 145.93 uGy-m2
--- OUTSIDE RECORDS SUMMARY | 2025-05-25 16:50 | XMS_ITS | Encounter Summary ---
Author Organization [facility] Address [address] [facility] [address] [place] [address] Phone Care Team Providers Care Hse Advisor Name Role Phone Ramon Agrawal Primary Care Provider + Pedro Shahid DO Unavailable [phone] Ariel Ken MD Unavailable [phone] Roni Ordonez MD, FACS Unavailable [phone] Encounter Details Date Type Department Care Team ([facility] Contact Info) Description 01/21/2023 Procedure Pass [facility] - CT Main [place] [address] [place] [address] Social History Tobacco Use Types Packs/Day Years [...] [facility] [address] [place] [address] Roni Ordonez MD, FACS [address] [place] [address] [email or web address] documented as of this encounter Visit Diagnoses Not on filedocumented in this encounter Care Teams Hse Advisor Relationship Specialty Start Date End Date Ramon Agrawal PA [address] [place] [address] PCP - General Physician Billet Sawyer 01/08/23 Pedro Shahid DO [address] [place] [address] [email or web address] Primary Oncologist Hematology and Oncology 01/08/23 Ariel Ken MD [address] [place] [address] [email or web address] study analyst 01/14/23 Roni Ordonez MD, FACS [address] [place] [address] [email or web address] Otolaryngology 01/18/23 documented as of this encounter Additional Source Comments The information contained in this document represents components of the legal health record. It is not the complete legal health record.[facility]
--- OUTSIDE RECORDS SUMMARY | 2025-05-25 16:50 | XMS_ITS | Encounter Summary ---
Author Organization [facility] Address [address] [facility] [address] [place] [address] Phone Care Team Providers Care Relay Adjuster Name Role Phone Ramon Agrawal Primary Care Provider + Pedro Shahid DO Unavailable [phone] Ariel Ken MD Unavailable [phone] Roni Ordonez MD, FACS Unavailable [phone] Encounter Details Date Type Department Care Team (Late st Contact Info) Description 11/20/2023 Procedure Pass [facility] [address] [place] [address] Social History Tobacco Use Types Packs/Day Years [...] Description 07/16/2025 11:00 AM EST Office Visit [facility] Head and Neck Cancer Division [address] [place] [address] Roni Ordonez MD, FACS [address] [place] [address] [email or web address] documented as of this encounter Visit Diagnoses Not on filedocumented in this encounter Care Teams Relay Adjuster Relationship Specialty Start Date End Date Ramon Agrawal PA [address] [place] [address] PCP - General Physician Erisa Attorney 01/08/23 Pedro Shahid DO 30 [place] [address] [email or web address] [facility] Primary Oncologist Hematology and Oncology 01/08/23 Ariel Ken MD [facility]6 [place] [address] [email or web address] 01/14/23 Roni Ordonez MD, FACS [address] [place] [address] [email or web address] Otolaryngology 01/18/23 documented as of this encounter Additional Source Comments The information contained in this document represents components of the legal health record. It is not the complete legal health record.[facility]
--- OUTSIDE RECORDS SUMMARY | 2025-05-25 16:51 | XMS_ITS | Patient Health Record ---
Author Organization [facility] Address [address] [place] [address] Care Team Providers Care House Painter Helper Name Role Phone Ramon Agrawal Primary Care Provider Olman Miles Jr Unavailable Allergies Allergen (clinical drug ingredient) Drug/Non Drug Allergy documented on EMR Reaction Allergy Type Onset Date Status Morphine Sulfate Unknown Drug Allergy Active powder [...] directed before c olonoscopy Orally every 15 minutes; Duration: 1 day(s) Active Ibuprofen 800 MG 1 [...] Problem Status W/U Status Risk Notes Problem Colon cancer screening (850441697) Colon cancer screening (Z12.11) Active confirmed Problem History of polyp of colon (situation) (111916236) Personal history of colonic polyps (Z86.010) Active confirmed Problem Pre-procedure evaluation check (474755700) Visit for pre-operative examination (Z01.818) Active confirmed Plan Of Treatment Future Test Test Name Order Date COLONOSCOPY 01/16/2018 Insurance Providers Payer Name Payer Address Payer Phone Subscriber Number Group Number Insured Name Patient Relationship to Insured Coverage Start Date Coverage End Date [facility] [address] [place] [address] [phone] [id number] VIC PIMENTEL Self - patient is the insured Medical (General) History Medical History History ICD Code seasonal allergies hx of diverticulitis polycythemia- Dr. Guido Surgical History Surgery Date(Month/Year) wisdom teeth extraction 1972
== END 2025-05-25 14:23 | disposition home or self-care (01) ==
LOC: HO.HMCH 13:50
PROVIDERS: PCP Physician Assistant; Visit Provider Internal Medicine
DX: R68.89 Other general symptoms and signs (principal)

== ENCOUNTER → 2025-05-25 14:43 | Outpatient (BNV) | payer MEDICARE, SELFPAY | PROVIDERS: PCP Physician Assistant; Visit Provider Radiology Diagnostic Radiology | DX: R68.89 Other general symptoms and signs (principal) | CPT/HCPCS: 71046 ==

== ENCOUNTER 2025-06-04 10:49 | Outpatient (AMB) | payer MEDICARE, SELFPAY ==
--- OUTSIDE RECORDS SUMMARY | 2023-02-06 | XMS_ITS | Encounter Summary ---
Author Organization [facility] Address [address] [facility] [address] [place] [address] Phone Care Team Providers Care Equal Opportunity Officer Name Role Phone Ramon Agrawal Primary Care Provider + Pedro Shahid DO Unavailable [phone] Ariel Ken MD Unavailable [phone] Roni Ordonez MD, FACS Unavailable [phone] Encounter Details Date Type Department Care Team (Late st Contact Info) Description 02/06/2023 Hospital Encounter [facility] [address] [place] [address] Roni Ordonez MD, FACS [address] [place], [place] [id number] [email or web address] Social History Tobacco Use Types Packs/Day Years [...] 5:18 PM EDT Samira Wheeler RN * [place] Suicide Severity Rating Scale (Screener/Recent Self-Report) Question [...] Visit [facility] [address] [place] [address] Roni Ordonez MD, FACS [address] [place] [address] [email or web address] documented as of this encounter Procedures Procedure [...] on filedocumented in this encounter Care Teams Equal Opportunity Officer Relationship Specialty Start Date End Date Ramon Agrawal PA [address] [place] [address] PCP - General Physician Dock Attendant 01/08/23 Pedro Shahid DO [address] [place] [address] [email or web address] [email or web address] [email or web address] Primary Oncologist Hematology and Oncology 01/08/23 Ariel Ken MD [address] [place] [address] [email or web address] manager 01/14/23 Roni Ordonez MD, FACS [address] [place] [address] [email or web address] [email or web address] 01/18/23 documented as of this encounter Additional Source Comments The information contained in this document represents components of the legal health record. It is not the complete legal health record.[facility]
--- NOTE | 2025-06-04 10:54 | A.OFFPC_ITS ---
Vital Signs 06/04/25 10:55 Height 5 ft 3 in Weight 162 lb BMI 28.7 BP 112/68 Blood Pressure Location Lt brachial Position Sitting Pulse 64 Pulse Source Pulse Oximeter Temp 96.6 F L Temp Source Temporal Artery Scan Pulse Oximetry (%) 98 Oxygen Delivery Method Room Air Intake Visit Reasons: Follow up Intake Note: Patient is here to follow up on Hypothyroid, GERD, HTN. Licensed Vocational Nurse Required: No Support Director: Not Required per policy Accompanied by: Self / Same As Patient Allergies latex (LATEX) Allergy (Unknown, Verified 06/04/25 10:55) HIVES/RASH morphine (MORPHINE) Allergy (Unknown, Verified 06/04/25 10:55) HIVES, rash powder in latex gloves Allergy (Unknown, Uncoded 06/04/25 10:55) rash Tobacco use date assessed: 06/04/25 Fall risk assessment: No Falls in past year Last assessed Fall Risk: 06/04/25 Dental Screening Dental Screen Date: 05/25/25 HPI HPI Comments History of Present Illness Details The patient is a 70-year-old female with a history of throat cancer s/p radiation presenting for a 4 weeks follow-up for flu like symptoms. Patient was treated with prednisone 20 mg daily and azithromycin for 5 days. CXR, RSV, Flu, and COVID were negative for any pertinent findings. Patient reprots her symptoms improved as she does not have cough anymore. She still complains of sore throat. The patient has a history of radiation therapy, which is believed to be contributing to her current symptoms. Regarding preventative care, the patient is due for vaccinations but has delayed them due to her recent illness. She plans to discuss her vaccination schedule with her healthcare provider, Leopoldo, during her upcoming appointment. [facility] Medical History Erythrocytosis Thyroid nodule Solar urticaria Osteopenia (~2016) Polycythemia HTN (hypertension) Surgical History History of lumbar laminectomy History of total left hip replacement History of mandibular surgery Family History Father Diabetes HTN (hypertension) Mother HTN (hypertension) Asthma Sister Afib CVA (cerebral vascular accident) Social History Household Members: Family and Children Housing: House Are you a primary livestock caretaker to a significant other at home: No Do you presently have visiting nurse or other home services: No Alcohol intake: current Alcohol intake frequency: a few times a week Alcohol type: beer Patient Tobacco Use Status: Former Tobacco user Cigarettes Per Day: 10 e-Cigarette/Vaping Use: Never Used Second Hand Smoke Exposure: Yes service: No Current occupational status: employed 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 Current occupational exposures/hazards: No Cognitive needs: Yes (cane) Hearing needs: No Vision needs: Yes (glasses) Questionnaire Thrive Questionnaire Date Thrive assessed: 12/24/24 I am a: Patient What is your living situation today?: I have a steady place to live Within the past 12 months, did the food you bought not last and you didn't have the money to get more?: Never true Within the past 12 months, did you worry whether your food would run out before you got money to buy more?: Never true Do you have trouble paying for medicines?: No Do you have trouble getting transportation to medical appointments?: No Do you have trouble paying your heating and electricity bill?: No Do you have trouble taking care of your child, family member or friend?: No Do you have trouble with day-to-day activities such as bathing, preparing meals, shopping, managing finances, etc.?: No Are you currently unemployed and looking for a job?: No Are you interested in more education?: No Please select the resources that you would like help with: None Currently or been in a relationship where the following occur: No concerns reported THRIVE Score: 0 MARY-7 AMB Questionnaire MARY-7 Date MARY - 7 assessed: 12/31/24 Source: Developed by Drs. Amadou Weber, Cecille Oshea, Tan Bello and colleagues, with an educational kiel from [employer]. Review of Systems Const Details: Positives besides what was mentioned in HPI are in BOLD Constitutional: No Weight Change, No Fever, No Chills, No Night Sweats, No Fatigue, No Malaise ENT/Mouth: No Hearing Changes, No Ear Pain, No Nasal Congestion, No Sinus Pain, No Hoarseness, No sore throat, No Rhinorrhea, No Swallowing Difficulty Eyes: No Eye Pain, No Swelling, No Redness, No Foreign Body, No Discharge, No Vision Changes Cardiovascular: No Chest Pain, No SOB, No PND, No Dyspnea on Exertion, No Orthopnea, No Claudication, No Edema, No Palpitations Respiratory: No Cough, No Sputum, No Wheezing, No Smoke Exposure, No Dyspnea Gastrointestinal: No Nausea, No Vomiting, No Diarrhea, No Constipation, No Pain, No Heartburn, No Anorexia, No Dysphagia, No Hematochezia, No Melena, No Flatulence, No Jaundice Genitourinary: No Dysmenorrhea, No DUB, No Dyspareunia, No Dysuria, No Urinary Frequency, No Hematuria, No Urinary Incontinence, No Urgency, No Flank Pain, No Urinary Flow Changes, No Hesitancy Musculoskeletal: No Arthralgias, No Myalgias, No Joint Swelling, No Joint Stiffness, No Back Pain, No Neck Pain, No Injury History Skin: No Skin Lesions, No Pruritis, No Hair Changes, No Breast/Skin Changes, No Nipple Discharge Neuro: No Weakness, No Numbness, No Paresthesias, No Loss of Consciousness, No Syncope, No Dizziness, No Headache, No Coordination Changes, No Recent Falls Psych: No Anxiety/Panic, No Depression, No Insomnia, No Personality Changes, No Delusions, No Rumination, No SI/HI/AH/VH, No Social Issues, No Memory Changes, No Violence/Abuse Hx., No Eating Concerns Heme/Lymph: No Bruising, No Bleeding, No Transfusions History, No Lymphadenopathy Endocrine: No Polyuria, No Polydipsia, No Temperature Intolerance Physical exam (Primary Care) Vital Signs: Last Vital Signs Temp 96.6 F L 06/04/25 10:55 Pulse 64 06/04/25 10:55 BP 112/68 06/04/25 10:55 Pulse Ox 98 06/04/25 10:55 Oxygen Delivery Method Room Air 06/04/25 10:55 BMI result Body Mass Index 28.7 Tobacco/Smoking Status: Tobacco use Status Tobacco use date assessed 06/04/25 06/04/25 11:03 Patient Tobacco Use Status Former Tobacco user 06/04/25 11:03 Tobacco use type 12/31/23 14:00 e-Cigarette/Vaping Use Never Used 06/04/25 11:03 Thrive Assessment: Date of Thrive Assessment Date Thrive assessed 12/24/24 06/04/25 11:03 Currently or been in a relationship where the following occur: No concerns reported Const Other: Pertinent findings are in BOLD GENERAL APPEARANCE NAD, activity normal for age, well developed/ well nourished, no cyanosis, pallor, or diaphoresis. EYES lids/conjunctiva normal. EARS/NOSE/THROAT Mucous membranes moist, nares normal, lips/teeth normal uvula midline without oral pharyngeal erythema, exudate or swelling TMs normal bilaterally. No lymphangitis/lymphedema. HEAD/NECK normocephalic atraumatic, no facial trauma, neck is supple. RESPIRATORY respiratory effort normal, speaks in full sentences, no tripod position, no accessory muscle use. Lungs clear to auscultation without rhonchi, wheezes, rales CARDIAC Regular rate and rhythm, no edema. ABDOMINAL Soft, ND/NT. No evidence of fluid wave. No pulsatile masses on exam, rebound tenderness, Damon sign or pain over Mcburney's point. MUSCLES/EXTREMITIES No abnormal range of motion, no swelling. SKIN Warm, pink and dry. No rashes, dermatoses, petechiae or lesions. NEUROLOGICAL Speech is clear and appropriate. Normal level of consciousness. Gait and coordination are normal. 5/5 strength in all extremities. PSYCH Normal mood and affect. Judgement/competence is appropriate Coding Level of Care Code Est Pt Level 3 (26736) Diagnoses Flu-like symptoms R68.89 Time Spent (min) 20 Assessment & Plan Assessment & Plan (1) Flu-like symptoms: Code(s): R68.89 - Other general symptoms and signs Category: Medical Plan: Symptoms resolved. Advised patient to continue benzonatate only if she is experiencing cough. Delay Flu/COVID vaccines for another week due to recent illness. Patient will follow-up with Ander in June. Plan I discussed with the patient the negative results of her chest X-ray, confirming no pneumonia was present. We reviewed her current symptoms of congestion and sore throat, likely related to a recent cold and radiation therapy effects. I advised her to continue monitoring her symptoms and to follow up with her oncologist for ongoing cancer management.
[2025-06-04 10:55] VITALS: BP 112/68; PULSE 64; TEMP 35.9; O2SAT 98; BMI 28.7
--- OUTSIDE RECORDS SUMMARY | 2025-06-04 12:35 | XMS_ITS | Encounter Summary ---
Author Organization [facility] Address [address] [facility] [address] [place] [address] Phone Care Team Providers Care Campground Caretaker Name Role Phone Ramon Agrawal Primary Care Provider + Pedro Shahid DO Unavailable [phone] Ariel Ken MD Unavailable [phone] Roni Ordonez MD, FACS Unavailable [phone] Encounter Details Date Type Department Care Team (Late st Contact Info) Description 07/20/2024 Procedure Pass [facility] - CT Main [place] [address] [place] [address] Social History Tobacco Use Types Packs/Day Years [...] Description 07/16/2025 11:00 AM EST Office Visit [facility] Head and Neck Cancer Division [address] [place] [address] Roni Ordonez MD, FACS [address] [place] [address] [email or web address] documented as of this encounter Visit Diagnoses Not on filedocumented in this encounter Care Teams Campground Caretaker Relationship Specialty Start Date End Date Ramon Agrawal PA [address] [place] [address] PCP - General Physician Wind Turbine Installer 01/08/23 Pedro Shahid DO [address] [place] [address] [email or web address] .[email or web address] Primary Oncologist Hematology and Oncology 01/08/23 Ariel Ken MD [facility]6 [place] [address] [email or web address] aide 01/14/23 Roni Ordonez MD, FACS [address] [place] [address] [email or web address] Otolaryngology 01/18/23 documented as of this encounter Additional Source Comments The information contained in this document represents components of the legal health record. It is not the complete legal health record.[facility]
--- OUTSIDE RECORDS SUMMARY | 2025-06-04 12:35 | XMS_ITS | Encounter Summary ---
Author Organization [facility] Address [address] [facility] [address] [place] [address] Phone Care Team Providers Care Skimmer Reverberatory Name Role Phone Ramon Agrawal Primary Care Provider + Pedro Shahid DO Unavailable [phone] Ariel Ken MD Unavailable [phone] Roni Ordonez MD, FACS Unavailable [phone] Encounter Details Date Type Department Care Team (Late st Contact Info) Description 07/18/2023 Procedure Pass [facility] PERIOP DEPT [address] [place] [address] Social History Tobacco Use Types Packs/Day Years [...] [facility] [address] [place] [address] Roni Ordonez MD, FACS [address] [place] [address] [email or web address] documented as of this encounter Visit Diagnoses Not on filedocumented in this encounter Care Teams Skimmer Reverberatory Relationship Specialty Start Date End Date Ramon Agrawal PA [address] [place] [address] PCP - General Physician Menu Planner 01/08/23 Pedro Shahid DO [address] [place] [address] [email or web address] Primary Oncologist Hematology and Oncology 01/08/23 Ariel Ken MD [address] [place] [address] Sarah@[email or web address] business unit controller 01/14/23 Roni Ordonez MD, FACS [address] [place] [address] [email or web address] Otolaryngology 01/18/23 documented as of this encounter Additional Source Comments The information contained in this document represents components of the legal health record. It is not the complete legal health record.[facility]
--- OUTSIDE RECORDS SUMMARY | 2025-06-04 12:35 | XMS_ITS | Clinical Summary ---
Author Organization [employer] [facility] Address [address] [place] [address] Care Team Providers Care Fax Machine Operator Name Role Phone Unavailable Primary Care Provider [...]
--- OUTSIDE RECORDS SUMMARY | 2025-06-04 12:35 | XMS_ITS | Encounter Summary ---
Author Organization [facility] Address [address] [facility] [address] [place] [address] Phone Care Team Providers Care Regional Economist Name Role Phone Ramon Agrawal Primary Care Provider + Pedro Shahid DO Unavailable [phone] Ariel Ken MD Unavailable [phone] Roni Ordonez MD, FACS Unavailable [phone] Encounter Details Date Type Department Care Team (Late st Contact Info) Description 07/20/2024 Procedure Pass [facility] - CT Main [place] [address] [place] [address] Social History Tobacco Use Types Packs/Day Years [...] Description 07/16/2025 11:00 AM EST Office [place] [facility] Cancer Division [address] [place] [address] Roni Ordonez MD, FACS [address] [place] [address] [email or web address] documented as of this encounter Visit Diagnoses Not on filedocumented in this encounter Care Teams Regional Economist Relationship Specialty Start Date End Date Ramon Agrawal PA [address] [place] [address] PCP - General Physician Automotive Service Advisor 01/08/23 Pedro Shahid DO 30 [place] [address] [email or web address] .[email or web address] Primary Oncologist Hematology and Oncology 01/08/23 Ariel Ken MD [facility] [place] [address] [email or web address] recovery coordinator 01/14/23 Roni Ordonez MD, FACS [address] [place] [address] [email or web address] Otolaryngology 01/18/23 documented as of this encounter Additional Source Comments The information contained in this document represents components of the legal health record. It is not the complete legal health record.[facility]
--- OUTSIDE RECORDS SUMMARY | 2025-06-04 12:35 | XMS_ITS | Encounter Summary ---
Author Organization [facility] Address [address] [facility] [address] [place] [address] Phone Care Team Providers Care Recovery Unit Operator Name Role Phone Ramon Agrawal Primary Care Provider + Pedro Shahid DO Unavailable [phone] Ariel Ken MD Unavailable [phone] Roni Ordonez MD, FACS Unavailable Encounter Details Date Type Department Care Team ([facility] Contact Info) Description 01/21/2023 Procedure Pass [facility] - CT Main [place] 243 [place] [address] Social History Tobacco Use Types Packs/Day Years [...] [facility] 243 [place] [address] Roni Ordonez MD, FACS 243 [place] [address] [email or web address] documented as of this encounter Visit Diagnoses Not on filedocumented in this encounter Care Teams Recovery Unit Operator Relationship Specialty Start Date End Date Ramon Agrawal PA [address] [place] [address] PCP - General Physician Heel Gouger 01/08/23 Pedro Shahid DO [address] [place] [address] LESLIE@[email or web address] [email or web address] Primary Oncologist Hematology and Oncology 01/08/23 Ariel Ken MD [address] [place] [address] Sarah@[email or web address] developer 01/14/23 Roni Ordonez MD, FACS [address] [place] [address] [email or web address] Otolaryngology 01/18/23 documented as of this encounter Additional Source Comments The information contained in this document represents components of the legal health record. It is not the complete legal health record.[facility]
--- OUTSIDE RECORDS SUMMARY | 2025-06-04 12:35 | XMS_ITS | Encounter Summary ---
Author Organization [facility] Address [address] [facility] [address] [place] [address] Phone Care Team Providers Care Credit Risk Analytics Manager Name Role Phone Ramon Agrawal Primary Care Provider + Pedro Shahid DO Unavailable [phone] Ariel Ken MD Unavailable Roni Ordonez MD, FACS Unavailable [phone] Encounter Details Date Type Department Care Team (Late st Contact Info) Description 11/20/2023 Procedure Pass [facility] Cardiovascular And Interventional Radiology 30 [place] [address] Social History Tobacco Use Types Packs/Day Years [...] Description 07/16/2025 11:00 AM EST Office Visit [facility] Head [facility] Ne[facility] Cancer Division [address] [place] [address] Roni Ordonez MD, FACS [address] [place] [address] Earl@[email or web address] documented as of this encounter Visit Diagnoses Not on filedocumented in this encounter Care Teams Credit Risk Analytics Manager Relationship Specialty Start Date End Date Ramon Agrawal PA [address] [place] [address] PCP - General Physician Associate Genetics Professor 01/08/23 Pedro Shahid DO 30 [place] [address] LESLIE@[email or web address] [facility] Primary Oncologist Hematology and Oncology 01/08/23 Ariel Ken MD [facility]6 [place] [address] Sarah@[email or web address] actuarial trainee 01/14/23 Roni Ordonez MD, FACS [address] [place] [address] Earl@[email or web address] Otolaryngology 01/18/23 documented as of this encounter Additional Source Comments The information contained in this document represents components of the legal health record. It is not the complete legal health record.[facility]
--- OUTSIDE RECORDS SUMMARY | 2025-06-04 12:35 | XMS_ITS | Encounter Summary ---
Author Organization [facility] Address [address] [facility] [address] [place] [address] Phone Care Team Providers Care Executive Vice President Of Sales Name Role Phone Ramon Agrawal Primary Care Provider + Pedro Shahid DO Unavailable [phone] Ariel Ken MD Unavailable [phone] Roni Ordonez MD, FACS Unavailable [phone] Encounter Details Date Type Department Care Team (Late st Contact Info) Description 07/24/2023 Ancillary Orders [facility] - Ultrasound, Main [place] 243 [place] [address] Roni Ordonez MD, FACS 243 [place] [address] [email or web address] Enlarged lymph nodes (Primary Dx) Social History [...] Visit [facility] [address] [place] [address] Roni Ordonez MD, FACS [address] [place] [address] Earl@[email or web address] documented as of this encounter Visit Diagnoses Diagnosis Enlarged lymph nodes- Primary Enlargement of lymph nodes documented in this encounter Care Teams Executive Vice President Of Sales Relationship Specialty Start Date End Date Ramon Agrawal PA [address] [place] [address] PCP - General Physician Neon Sign Mechanic 01/08/23 Pedro Shahid DO [address] [place] [address] LESLIE@[email or web address] [place].[facility] Primary Oncologist Hematology and Oncology 01/08/23 Ariel Ken MD [address] [place] [address] [email or web address] window decorator 01/14/23 Roni Ordonez MD, FACS [address] [place] [address] [email or web address] Otolaryngology 01/18/23 documented as of this encounter Additional Source Comments The information contained in this document represents components of the legal health record. It is not the complete legal health record.[facility]
--- OUTSIDE RECORDS SUMMARY | 2025-06-04 12:35 | XMS_ITS | Encounter Summary ---
Author Organization [facility] Address [address] [facility] [address] [place] [address] Phone Care Team Providers Care Cocoa Bean Cleaner Name Role Phone Ramon Agrawal Primary Care Provider + Pedro Shahid DO Unavailable [phone] Ariel Ken MD Unavailable [phone] Roni Ordonez MD, FACS Unavailable [phone] Encounter Details Date Type Department Care Team (Late st Contact Info) Description 09/03/2023 Procedure Pass [facility] Cardiovascular [facility] Interventional Radiology 30 [place] [address] Social History Tobacco Use Types Packs/Day Years [...] [facility] Head [facility] Neck Cancer Division [address] [place] [address] Roni Ordonez MD, FACS [address] [place] [address] Earl@[facility] documented as of this encounter Visit Diagnoses Not on filedocumented in this encounter Care Teams Cocoa Bean Cleaner Relationship Specialty Start Date End Date Ramon Agrawal PA [address] [place] [address] PCP - General Physician Assessment Counselor 01/08/23 Pedro Shahid DO 30 [place] [address] LESLIE@[email or web address] .[facility] Primary Oncologist Hematology and Oncology 01/08/23 Ariel Ken MD [facility]6 [place] [address] [email or web address] qc analyst 01/14/23 Roni Ordonez MD, FACS [address] [place] [address] Earl@[email or web address] Otolaryngology 01/18/23 documented as of this encounter Additional Source Comments The information contained in this document represents components of the legal health record. It is not the complete legal health record.[facility]
--- OUTSIDE RECORDS SUMMARY | 2025-06-04 12:35 | XMS_ITS | Clinical Summary ---
Author Organization [facility] Address [address] [address] Phone Care Team Providers Care Office Chair Assembler Name Role Phone Ramon Agrawal Primary Care Provider + Pedro Shahid DO Unavailable [phone] Ariel Ken MD Unavailable [phone] Roni Ordonez MD, FACS Unavailable [phone] Allergies Active Allergy Reactions Criticality Noted Date [...] Description 03/05/2025 11:30 AM EDT Office [place] [facility] [address] [place] [address] Roni Ordonez MD, FACS Oral cancer (Primary [...] Description 07/16/2025 11:00 AM EST Office Visit [facility] [address] [place] [address] Roni Ordonez MD, FACS 243 [place] [address] [email or web address] Health Maintenance Due Date Last Done Comments [...] this topic Medical Devices Implanted Type Area Freight Agent Device Identifier Shelf Expiration Date Model / Serial / Lot Left Thr Procedures Procedure Name Priority Date/Time Associated Diagnosis Comments COMPREHENSIVE METABOLIC PANEL Routine 08/30/2023 12:32 PM EST Oropharyngeal cancer from Last 3 Months or Most Recently Relevant to Health Maintenance Results * (ABNORMAL) Comprehensive metabolic panel (08/30/2023 12:32 PM EST) SODIUM 141 133 - 146 mmol/L [facility] POTASSIUM 3.6 3.3 - 5.1 mmol/L [facility] CHLORIDE 100 96 - 108 mmol/L [facility] CO2 29 21 - 35 mmol/L [facility] BUN 15 6 - 19 mg/dL [facility] CREATININE 0.60 0.5 - 1.5 mg/dL [facility] GLUCOSE 48(LL) 70 - 99 mg/dL [facility] Comment: Critical value: Results called to and read back by: DOUG Raymond AT 1847 ALBUMIN 4.3 3.9 - 4.8 g/dL [facility] TOTAL PROTEIN 7.4 6.5 - 8.0 g/dL [facility] CALCIUM 9.7 8.4 - 10.3 mg/dL [facility] ALKALINE PHOSPHATASE 104 39 - 117 U/L [facility] TOTAL BILIRUBIN 0.3 0.0 - 1.2 mg/dL [facility] AST 16 0 - 37 U/L [facility] ALT 11 0 - 40 U/L [facility] GLOBULIN 3.1 1 - 4.8 g/dL [facility] EGFR 97 >59 mL/min/1.7 3m2 [facility] Comment:Estimated glomerular filtration rate calculated using the CKD-EPI refit equation. ANION GAP 16 10 - 20 mmol/L [facility] Blood 08/30/2023 12:3 2 PM EST 08/30/2023 12:36 PM EST us Doug Handy MD LAB BLOOD ORDERABLES Final Res ult [facility] 30 [place] [address] from Last 3 Months or Most Recently Relevant to Health Maintenance Insurance [place] [address] [place] [address] MEDICARE PPO BLUE REPLACEMENT [facility] MEDICARE PPO [place] [address] [place] [address] MEDICARE PPO BLUE REPLACEMENT [facility] MEDICARE PPO BLUE REPLACEMENT [facility] MEDICARE PPO BLUE REPLACEMENT Advance Directives For more information, please contact: [phone] (9AM - 5PM [facility], Saturday-Saturday) Documents on File Type Date Recorded Patient Network Control Operators Supervisor Expl [employer] Proxy 07/22/2023 3:07 PM * Full Code (Latest Code Status on File) Date Activated Date Inactivated Comments 03/19/2023 3:56 PM Question Answer Comments Code Status Confirmed With: Patient Care Teams Office Chair Assembler Relationship Specialty Start Date End Date Ramon Agrawal PA [address] [place] [address] PCP - General Physician Workers Compensation Examiner 01/08/23 Pedro Shahid DO [address] [place] [address] LESLIE@[email or web address] .[facility] Primary Oncologist Hematology and Oncology 01/08/23 Ariel Ken MD [address] [place] [address] Sarah@[email or web address] associate 01/14/23 Roni Ordonez MD, FACS [address] [place] [address] Earl@[email or web address] Otolaryngology 01/18/23 Additional Source Comments The information contained in this document represents components of the legal health record. It is not the complete legal health record.[facility]
--- OUTSIDE RECORDS SUMMARY | 2025-06-04 12:35 | XMS_ITS ---
Author Organization [facility] Address [address] [facility] [address] [place] [address] Phone Care Team Providers Care Edger Hand Name Role Phone Ramon Agrawal Primary Care Provider + Pedro Shahid DO Unavailable [phone] Ariel Ken MD Unavailable [phone] Roni Ordonez MD, FACS Unavailable [phone] Active Problems Patient Care Coordination No te [...]
--- OUTSIDE RECORDS SUMMARY | 2025-06-04 12:35 | XMS_ITS | Encounter Summary ---
Author Organization [facility] Address [address] [facility] [address] [place] [address] Phone Care Team Providers Care Industrial Technologist Name Role Phone Ramon Agrawal Primary Care Provider + Pedro Shahid DO Unavailable [phone] Ariel Ken MD Unavailable [phone] Roni Ordonez MD, FACS Unavailable [phone] Encounter Details Date Type Department Care Team (Late st Contact Info) Description 03/27/2024 Procedure Pass [facility] - CT Main [place] 243 [place] [address] Social History Tobacco Use Types Packs/Day Years [...] Description 07/16/2025 11:00 AM EST Office Visit [facility] Head and Neck Cancer Division [address] [place] [address] Roni Ordonez MD, FACS 243 [place] [address] Earl@[email or web address] documented as of this encounter Visit Diagnoses Not on filedocumented in this encounter Care Teams Industrial Technologist Relationship Specialty Start Date End Date Ramon Agrawal PA [address] [place] [address] PCP - General Physician Battery Recharger 01/08/23 Pedro Shahid DO 30 [place] [address] LESLIE@[email or web address] [facility] Primary Oncologist Hematology and Oncology 01/08/23 Ariel Ken MD [facility]6 [place] [address] Sarah@[employer] farm equipment technician 01/14/23 Roni Ordonez MD, FACS [address] [place] [address] Earl@[email or web address] Otolaryngology 01/18/23 documented as of this encounter Additional Source Comments The information contained in this document represents components of the legal health record. It is not the complete legal health record.[facility]
--- OUTSIDE RECORDS SUMMARY | 2025-06-04 12:35 | XMS_ITS | Encounter Summary ---
Author Organization [facility] Address 399 [facility] [address] [place] [address] Phone Care Team Providers Care Magnetizer Name Role Phone Ramon Agrawal Primary Care Provider + Pedro Shahid DO Unavailable [phone] Ariel Ken MD Unavailable [phone] Roni Ordonez MD, FACS Unavailable [phone] Encounter Details Date Type Department Care Team (Late st Contact Info) Description 12/12/2023 Procedure Pass [facility] Cardiovascular And Interventional Radiology 30 [place] [address] Social History Tobacco Use Types Packs/Day Years [...] 11:00 AM EST Office Visit [facility] [address] [place] [address] Roni Ordonez MD, FACS [address] [place] [address] Earl@[email or web address] documented as of this encounter Visit Diagnoses Not on filedocumented in this encounter Care Teams Magnetizer Relationship Specialty Start Date End Date Ramon Agrawal PA [address] [place] [address] PCP - General Physician Residential Advisor 01/08/23 Pedro Shahid DO 30 [place] [address] LESLIE@[email or web address] [place] [place] Primary Oncologist Hematology and Oncology 01/08/23 Ariel Ken MD [facility]6 [place] [address] Sarah@[email or web address] coordinator 01/14/23 Roni Ordonez MD, FACS [address] [place] [address] [email or web address] Otolaryngology 01/18/23 documented as of this encounter Additional Source Comments The information contained in this document represents components of the legal health record. It is not the complete legal health record.[facility]
--- OUTSIDE RECORDS SUMMARY | 2025-06-04 12:35 | XMS_ITS | Encounter Summary ---
Author Organization [facility] Address 399 [facility] [address] [place] [address] Phone Care Team Providers Care Plant Technician Name Role Phone Ramon Agrawal Primary Care Provider + Pedro Shahid DO Unavailable [phone] Ariel Ken MD Unavailable [phone] Roni Ordonez MD, FACS Unavailable [phone] Encounter Details Date Type Department Care Team (Late st Contact Info) Description 11/20/2023 Procedure Pass [facility] Cardiovascular And Interventional Radiology 30 [place] [address] Social History Tobacco Use Types Packs/Day Years [...] Description 07/16/2025 11:00 AM EST Office Visit [facility] Cancer Division [address] [place] [address] Roni Ordonez MD, FACS [address] [place] [address] Earl@[email or web address] documented as of this encounter Visit Diagnoses Not on filedocumented in this encounter Care Teams Plant Technician Relationship Specialty Start Date End Date Ramon Agrawal PA [address] [place] [address] PCP - General Physician Visual Artist 01/08/23 Pedro Shahid DO 30 [place] [address] LESLIE@[email or web address] .[facility] Primary Oncologist Hematology and Oncology 01/08/23 rAiel Ken MD [facility]6 [place] [address] Sarah@[email or web address] mattress maker 01/14/23 Roni Ordonez MD, FACS [address] [place] [address] Earl@[email or web address] Otolaryngology 01/18/23 documented as of this encounter Additional Source Comments The information contained in this document represents components of the legal health record. It is not the complete legal health record.[facility]
--- OUTSIDE RECORDS SUMMARY | 2025-06-04 12:35 | XMS_ITS | Encounter Summary ---
Author Organization [facility] Address 399 [facility] [address] [place] [address] Phone Care Team Providers Care Paper Production Engineer Name Role Phone Ramon Agrawal Primary Care Provider + Pedro Shahdi DO Unavailable [phone] Ariel Ken MD Unavailable [phone] Roni Ordonez MD, FACS Unavailable [phone] Encounter Details Date Type Department Care Team (Late st Contact Info) Description 04/03/2023 Procedure Pass [facility] - CT Main [place] 243 [place] [address] Social History Tobacco Use Types Packs/Day Years [...] [facility] 243 [place] [address] Roni Ordonez MD, FACS [address] [place] [address] Earl@[email or web address] documented as of this encounter Visit Diagnoses Not on filedocumented in this encounter Care Teams Paper Production Engineer Relationship Specialty Start Date End Date Ramon Agrawal PA [address] [place] [address] PCP - General Physician Sanitation Lead 01/08/23 Pedro Shahid DO [address] [place] [address] LESLIE@[email or web address] Primary Oncologist Hematology and Oncology 01/08/23 Ariel Ken MD [address] [place] [address] Sarah@[employer] buttermaker helper 01/14/23 Roni Ordonez MD, FACS [address] [place] [address] Earl@[email or web address] Otolaryngology 01/18/23 documented as of this encounter Additional Source Comments The information contained in this document represents components of the legal health record. It is not the complete legal health record.[facility]
--- OUTSIDE RECORDS SUMMARY | 2025-06-04 12:35 | XMS_ITS | Encounter Summary ---
Author Organization [facility] Address 399 [facility] [address] [place] [address] Phone Care Team Providers Care Transformation Analyst Name Role Phone Ramon Agrawal Primary Care Provider + Pedro Shahid DO Unavailable [phone] Ariel Ken MD Unavailable [phone] Roni Ordonez MD, FACS Unavailable [phone] Encounter Details Date Type Department Care Team (Late st Contact Info) Description 03/27/2024 Procedure Pass [facility] - CT Main [place] 243 [place] [address] Social History Tobacco Use Types Packs/Day Years [...] 07/16/2025 11:00 AM EST Office [place] [facility] [address] [place] [address] Roni Ordonez MD, FACS [address] [place] [address] Earl@[email or web address] documented as of this encounter Visit Diagnoses Not on filedocumented in this encounter Care Teams Transformation Analyst Relationship Specialty Start Date End Date Ramon Agrawal PA [address] [place] [address] PCP - General Physician Information Systems Supervisor 01/08/23 Pedro Shahid DO 30 [place] [address] LESLIE@[email or web address] Primary Oncologist Hematology and Oncology 01/08/23 Ariel Ken MD [facility]6 [place] [address] Sarah@[email or web address] director [email or web address] improvement 01/14/23 Roni Ordonez MD, FACS [address] [place] [address] [email or web address] Otolaryngology 01/18/23 documented as of this encounter Additional Source Comments The information contained in this document represents components of the legal health record. It is not the complete legal health record.[facility]
--- OUTSIDE RECORDS SUMMARY | 2025-06-04 12:35 | XMS_ITS | Encounter Summary ---
Author Organization [facility] Address [address] [facility] [address] [place] [address] Phone Care Team Providers Care Assistant Basketball Coach Name Role Phone Ramon Agrawal Primary Care Provider + Pedro Shahid DO Unavailable [phone] Ariel Ken MD Unavailable Roni Ordonez MD, FACS Unavailable [phone] Encounter Details Date Type Department Care Team ([facility] Contact Info) Description 01/21/2023 Procedure Pass [facility] - CT Main [place] 243 [place] [address] Social History Tobacco Use Types Packs/Day Years [...] [facility] 243 [place] [address] Roni Ordonez MD, FACS 243 [place] [address] Earl@[email or web address] documented as of this encounter Visit Diagnoses Not on filedocumented in this encounter Care Teams Assistant Basketball Coach Relationship Specialty Start Date End Date Ramon Agrawal PA [address] [place] [address] PCP - General Physician Talent Acquisition Assistant 01/08/23 Pedro Shahid DO [address] [place] [address] LESLIE@[email or web address] Primary Oncologist Hematology and Oncology 01/08/23 Ariel Ken MD [address] [place] [address] Sarah@[email or web address] liberal [employer] dean 01/14/23 Roni Ordonez MD, FACS [address] [place] [address] Earl@[email or web address] Otolaryngology 01/18/23 documented as of this encounter Additional Source Comments The information contained in this document represents components of the legal health record. It is not the complete legal health record.[facility]
--- OUTSIDE RECORDS SUMMARY | 2025-06-04 12:35 | XMS_ITS | Encounter Summary ---
Author Organization [facility] Address [address] [facility] [address] [place] [address] Phone Care Team Providers Care Chainstitch Pants Outseamer Name Role Phone Ramon Agrawal Primary Care Provider + Pedro Shahid DO Unavailable Ariel Ken MD Unavailable [phone] Roni Ordonez MD, FACS Unavailable [phone] Encounter Details Date Type Department Care Team (Late st Contact Info) Description 04/03/2023 Procedure Pass [facility] - CT Main [place] [address] [place] [address] Social History Tobacco Use Types Packs/Day Years [...] [facility] [address] [place] [address] Roni Ordonez MD, FACS [address] [place] [address] [email or web address] documented as of this encounter Visit Diagnoses Not on filedocumented in this encounter Care Teams Chainstitch Pants Outseamer Relationship Specialty Start Date End Date Ramon Agrawal PA [address] [place] [address] PCP - General Physician Mold Finisher 01/08/23 Pedro Shahid DO [address] [place] [address] [email or web address] Primary Oncologist Hematology and Oncology 01/08/23 Ariel Ken MD [address] [place] [address] [email or web address] 01/14/23 Roni Ordonez MD, FACS [address] [place] [address] [email or web address] Otolaryngology 01/18/23 documented as of this encounter Additional Source Comments The information contained in this document represents components of the legal health record. It is not the complete legal health record.[facility]
--- OUTSIDE RECORDS SUMMARY | 2025-06-04 12:35 | XMS_ITS | Encounter Summary ---
Author Organization [facility] Address [address] [facility] [address] [place] [address] Phone Care Team Providers Care Rifle Case Repairer Name Role Phone Ramon Agrawal Primary Care Provider + Pedro Shahid DO Unavailable [phone] Ariel Ken MD Unavailable [phone] Roni Ordonez MD, FACS Unavailable [phone] Encounter Details Date Type Department Care Team (Late st Contact Info) Description 03/19/2023 Procedure Pass [facility] MAIN PERIOP DEPT [address] [place] [address] Social History Tobacco Use Types Packs/Day Years [...] 5:18 PM EDT Samira Wheeler RN * Skipwith Suicide Severity Rating Scale (Screener/Recent Self-Report) Question [...] Description 07/16/2025 11:00 AM EST Office Visit [facility] [address] [place] [address] Roni Ordonez MD, FACS [address] [place] [address] [email or web address] documented as of this encounter Visit Diagnoses Not on filedocumented in this encounter Care Teams Rifle Case Repairer Relationship Specialty Start Date End Date Ramon Agrawal PA [address] [place] [address] PCP - General Physician Dental Insurance Biller 01/08/23 Pedro Shahid DO [address] [place] [address] [email or web address] .[facility] Primary Oncologist Hematology and Oncology 01/08/23 Ariel Ken MD [facility] [place] [address] [email or web address] 01/14/23 Roni Ordonez MD, FACS [address] [place] [address] [email or web address] Otolaryngology 01/18/23 documented as of this encounter Additional Source Comments The information contained in this document represents components of the legal health record. It is not the complete legal health record.[facility]
--- OUTSIDE RECORDS SUMMARY | 2025-06-04 12:35 | XMS_ITS | Encounter Summary ---
Author Organization [facility] Address [address] [facility] [address] [place] [address] Phone Care Team Providers Care Structural Layout Worker Name Role Phone Ramon Agrawal Primary Care Provider + Pedro Shahid DO Unavailable [phone] Ariel Ken MD Unavailable [phone] Roni Ordonez MD, FACS Unavailable [phone] Encounter Details Date Type Department Care Team (Late st Contact Info) Description 11/19/2023 Procedure Pass [facility] Cardiovascular [facility] Interventional Radiology 30 [place] [address] Social History Tobacco Use Types Packs/Day Years [...] Description 07/16/2025 11:00 AM EST Office [place] [facility] [address] [place] [address] Roni Odronez MD, FACS [address] [place] [address] [email or web address] documented as of this encounter Visit Diagnoses Not on filedocumented in this encounter Care Teams Structural Layout Worker Relationship Specialty Start Date End Date Ramon Agrawal PA [address] [place] [address] PCP - General Physician President Practicing Urologist 01/08/23 Pedro Shahid DO [address] [place] [address] [email or web address] [facility] Primary Oncologist Hematology and Oncology 01/08/23 Ariel Ken MD [facility]6 [place] [address] [email or web address] bull riveter operator 01/14/23 Roni Ordonez MD, FACS [address] [place] [address] [email or web address] Otolaryngology 01/18/23 documented as of this encounter Additional Source Comments The information contained in this document represents components of the legal health record. It is not the complete legal health record.[facility]
--- OUTSIDE RECORDS SUMMARY | 2025-06-04 12:36 | XMS_ITS | Patient Health Record ---
Author Organization [facility] Address [address] [place] [address] Care Team Providers Care Rice Drier Operator Name Role Phone Ramon Agrawal Primary Care Provider Olman Miles Jr Unavailable [phone] Allergies Allergen (clinical drug ingredient) Drug/Non [...] Status Risk Notes Problem Colon cancer screening (994023597) Colon cancer screening (Z12.11) Active confirmed Problem History of polyp of colon (situation) (985723070) Personal history of colonic polyps (Z86.010) Active confirmed Problem Pre-procedure evaluation check (281174107) Visit for pre-operative examination (Z01.818) Active confirmed Plan Of Treatment Future Test Test Name Order Date COLONOSCOPY 01/16/2018 Insurance Providers Payer Name Payer Address Payer Phone Subscriber Number Group Number Insured Name Patient Relationship to Insured Coverage Start Date Coverage End Date [facility] [address] [place] [address] [id number] VIC PIMENTEL Self - patient is the insured Medical (General) History Medical History History ICD Code seasonal allergies hx of diverticulitis polycythemia- Dr. Guido Surgical History Surgery Date(Month/Year) wisdom teeth extraction 1972
== END 2025-06-04 11:34 | disposition home or self-care (01) ==
LOC: HO.HMCH 10:50
PROVIDERS: PCP Physician Assistant; Visit Provider Internal Medicine
DX: R68.89 Other general symptoms and signs (principal)

== ENCOUNTER → 2025-06-04 10:49 | Outpatient (BNVA) | payer MEDICARE, SELFPAY | PROVIDERS: PCP Physician Assistant; Visit Provider Internal Medicine | DX: J02.9 Acute pharyngitis, unspecified (principal); Z92.3 Personal history of irradiation | CPT/HCPCS: 99212 ==

== ENCOUNTER 2025-07-01 14:56 | Outpatient (AMB) | payer MEDICARE, SELFPAY ==
--- OUTSIDE RECORDS SUMMARY | 2023-02-05 23:00 | XMS_ITS | Encounter Summary ---
Author Organization [facility] Address [address] [facility] [address] [place] [address] Phone Care Team Providers Care Wallpaperer Helper Name Role Phone Ramon Agrawal Primary Care Provider + Pedro Shahid DO Unavailable [phone] Ariel Ken MD Unavailable Roni Ordonez MD, FACS Unavailable [phone] Encounter Details Date Type Department Care Team (Late st Contact Info) Description 02/06/2023 Hospital Encounter [facility] [address] [place] [address] Roni Ordonez MD, FACS [address] [place] [address] [email or web address] Social History Tobacco Use Types Packs/Day Years Used Date Smoking Tobacco: Former Cigarettes 0.3 49.8 1 974 - 06/2023 Smokeless Tobacco: Never Comments:Quit for one month after 03/2023 surgery (4 cigarettes a day now). Alcohol Use Standard Drinks/Week Comments Not Currently 7 (1 standard drink = 0.6 oz pure alcohol) minimal since 02/09/23 (pre surgery) - had a few last week pt can have 2 in one setting Education Answer Date Recorded Are you interested in more education? Not on dario e 01/08/2023 Are you concerned about learning? Not on file 01/08/2023 No 01/08/2023 No 01/08/2023 Digital Access Answer Date Recorded No 01/08/2023 No 01/08/2023 Reliable internet access at home? Not on file 01/08/2023 Device with a working camera? Not on file Intimate Partner Violence Answer Date R ecorded Are you denied basic needs s uch as food, clothing, or medical care? No 09/03/2023 In the past 12 months have y ou been in a relationship with a person who hurts, threatens, or tries to control you? No 09/03/2023 Are you denied basic needs s uch as food, clothing, or medical care? No 09/03/2023 In the past 12 months have y ou been in a relationship with a person who hurts, threatens, or tries to control you? No 09/03/2023 Comments No Sex and Gender Information Value Date Recorded Sex Assigned at Female 09/30/2023 4:04 PM EST Legal Sex Female 9:57 PM EDT Gender Identity Female 09/30/2023 4:04 PM EST Sexual Orientation Not on file documented as of this encounter Functional Status * Calculated C-SSRS Risk Score (Lifetime/Recent) Answer Date of Assessment Author No Risk Indicated 03/19/2023 5:18 PM EDT Samira Wheeler RN * [place] Suicide Severity Rating Scale (Screener/Recent Self-Report) Question Answer Date of Assessment Author 1. Wish to be (Past 1 Month) No 03/19/2023 5:18 PM EDT Samira Wheeler RN 2. Non-Specific Active Suicidal Thoughts (Past 1 Month) No 03/19/2023 5:18 PM EDT Samira Wheeler RN 6. Suicidal Behavior (Lifetime) No 03/19/2023 5:18 PM EDT Samira Wheeler RN documented as of this encounter Plan of Treatment Upcoming Encounters Date Type Department Care Team (Late st Contact Info) Description 07/16/2025 11:00 AM EST Office Visit [facility] [address] [place] [address] Roni Ordonez MD, FACS [address] [place] [address] [email or web address] documented as of this encounter Procedures Procedure Name Priority Date/Time Associated Diagnosis Comments US THYROID GLAND OUTSIDE (NO INTERPRETATION) Routine 02/06/2023 12:00 AM EDT documented in this encounter Results * US Thyroid Gland Outside (No Interpretation) (02/06/2023 12:00 AM EDT) Narrative [facility] - 02/20/2023 8:51 AM EDT This study is for PACS storage only and not for interpretation. us Roni Ordonez MD, FACS IMG OUTSIDE IMAGING W/OUT INTERPRETATION Final Result [facility] documented in this encounter Visit Diagnoses Not on filedocumented in this encounter Care Teams Wallpaperer Helper Relationship Specialty Start Date End Date Ramon Agrawal PA [address] [place] [address] PCP - General Physician Crumb Packer 01/08/23 Pedro Shahid DO [address] [place] [address] [email or web address] Primary Oncologist Hematology and Oncology 01/08/23 Ariel Ken MD [address] [phone] [email or web address] 01/14/23 Roni Ordonez MD, FACS [address] [place] [phone] [email or web address] [email or web address] 01/18/23 documented as of this encounter Additional Source Comments The information contained in this document represents components of the legal health record. It is not the complete legal health record.[facility]
[2025-07-01 15:11] VITALS: BP 116/64; PULSE 71; O2SAT 96; BMI 29.1
--- NOTE | 2025-07-01 15:11 | A.OFFPC_ITS ---
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 Required: No Accompanied by: Self / Same As Patient Allergies latex (LATEX) Allergy (Unknown, Verified 07/01/25 15:22) HIVES/RASH morphine (MORPHINE) Allergy (Unknown, Verified 07/01/25 15:22) HIVES, rash powder in latex gloves Allergy (Unknown, Uncoded 07/01/25 15:22) rash Medication List - Last Reconciled 07/01/25 by Ramon Agrawal PA-C albuterol sulfate 90 mcg/actuation 1 inh inhalation QID PRN 30 days benzonatate 100 mg PO BID PRN camphor-methyl salicyl-menthol 3.1 %-10 %-6 % (large) (Salonpas) 1 patch topical DAILY levothyroxine 50 mcg PO DAILY 30 days lisinopril 10 mg PO DAILY mometasone 0.1% 1 appl topical DAILY 30 days Tobacco use date assessed: 07/01/25 Fall risk assessment: No Falls in past year Last assessed Fall Risk: 07/01/25 Dental Screening Dental Screen Date: 07/01/25 Did you have a dental visit in the last 12 months?: Yes Did you have a dental problem in the last 6 months where you did not have access to dental care?: No Was dental information given to patient?: Patient has dentist HPI f/u HTN HPI Details Patient is a 69 year female here today for a follow-up visit Patient has a past medical history significant for hypertension, lumbar disc disease, tobacco use disorder, thrombocytosis. Hypothyroid: She does report some fatigue and weight gain lately. Most recent TSH slightly elevated at 4 She continues on levothyroxine 50 mcg. Hypo functioning thyroid thought to be secondary to an effect from radiation on her neck. 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 Has some lingering side effects from the radiation such as mouth pain and decreased taste and smell. Is followed by [facility] for regular surveillance of malignancy recurrence .. Status post left hip arthroplasty: Done in 2021 at [facility]. Musculoskeletal history is significant for chronic issues post-left hip arthroplasty, including bilateral hip pain that limits walking, a sensation of leg length discrepancy, and a limp. The patient also had back surgery for bone fragments six months after the hip surgery and now reports recurrent pain at the surgical site .. ?former smoker- Per patient quit smoking in Jul 2023 .. Hypertension:? Continues on lisinopril 10 mg with good effect on her blood pressure.? She does report at times having spikes in her blood pressure 160 systolic. Otherwise asymptomatic. The patient reports snoring and acknowledges having sleep apnea based on past observations by partners. The patient expresses a desire to lose weight, attributing recent weight gain to a sweet tooth and lack of willpower, and also notes cravings for salty foods. [facility] Medical History Borderline high cholesterol Erythrocytosis Thyroid nodule Solar urticaria Osteopenia (~2015) Polycythemia HTN (hypertension) Surgical History History of lumbar laminectomy History of total left hip replacement History of mandibular surgery Family History Father Diabetes HTN (hypertension) Mother HTN (hypertension) Asthma Sister Afib CVA (cerebral vascular accident) Social History Household Members: Family and Children Housing: House Are you a primary manager career to a significant other at home: No Do you presently have visiting nurse or other home services: No Alcohol intake: current Alcohol intake frequency: a few times a week Alcohol type: beer Patient Tobacco Use Status: Former Tobacco user Cigarettes Per Day: 10 e-Cigarette/Vaping Use: Never Used Second Hand Smoke Exposure: Yes service: No Current occupational status: employed 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 1. Little interest or pleasure in doing things: not at all 2. Feeling down, depressed, or hopeless: not at all 3. Trouble falling or staying asleep, or sleeping too much: not at all 4. Feeling tired or having little energy: not at all 5. Poor appetite or overeating: not at all 6. Feeling bad about yourself - or that you are a failure or have let yourself or your family down: not at all 7. Trouble concentrating on things, such as reading the newspaper or watching television: not at all 8. Moving or speaking so slowly that other people could have noticed. Or the opposite - being so fidgety or restless that you have been moving around a lot more than usual: not at all 9. Thoughts that you would be better off or of hurting yourself in some way: not at all Total score: 0 Depression Screening Interpretation: Negative Depression Screening Done: Yes [id number] - PHQ-9 Billing: Patient declined-do not bill Source: Developed by Drs. Amadou Weber, Cecille Oshea, Tan Bello and colleagues, with an educational kiel from [employer]. Thrive Questionnaire Date Thrive assessed: 07/01/25 I am a: Patient What is your living situation today?: I have a steady place to live Within the past 12 months, did the food you bought not last and you didn't have the money to get more?: Never true Within the past 12 months, did you worry whether your food would run out before you got money to buy more?: Never true Do you have trouble paying for medicines?: No Do you have trouble getting transportation to medical appointments?: No Do you have trouble paying your heating and electricity bill?: No Do you have trouble taking care of your child, family member or friend?: No Do you have trouble with day-to-day activities such as bathing, preparing meals, shopping, managing finances, etc.?: No Are you currently unemployed and looking for a job?: No Are you interested in more education?: No Please select the resources that you would like help with: None Currently or been in a relationship where the following occur: No concerns reported THRIVE Score: 0 AUDIT C Alcohol Use Questionnaire (AUDIT-C) 1. How often do you have a drink containing alcohol?: 2-4 times a month 2. How many drinks containing alcohol do you have on a typical day when you are drinking?: 1 or 2 3. How often do you have six or more drinks on one occasion?: Never Total Score: 2 MARY-7 AMB Questionnaire MARY-7 Date MARY - 7 assessed: 07/01/25 Feeling nervous, anxious, or on edge: 0 = Not at all Not being able to stop or control worryin = Not at all Worrying too much about different things: 0 = Not at all Trouble relaxin = Not at all Being so restless that it is hard to sit still: 0 = Not at all Becoming easily annoyed or irritable: 0 = Not at all Feeling afraid as if something awful might happen: 0 = Not at all Total MARY-7 score (0-4 normal; 5-9 mild; 10-14 moderate; 15-21 severe): 0 Source: Developed by Drs. Amadou Weber, Cecille Oshea, Tan Bello and colleagues, with an educational kiel from [employer]. Review of Systems Const Denies headache(s) Eyes Denies loss of vision ENT Denies vertigo, Denies dizziness, Denies headache(s) and Denies sore throat Card Denies chest pain, Denies leg edema and Denies lightheadedness Resp Denies cough, Denies hemoptysis and Denies wheezing GI Denies abdominal pain, Denies melena, Denies constipation, Denies diarrhea and Denies vomiting Denies urinary frequency, Denies dysuria and Denies urinary urgency Musc Denies arthralgias, Denies joint swelling, Denies numbness and Denies tingling Neuro Denies Abnormal speech present, Denies behavioral changes, Denies vertigo, Denies dizziness, Denies headache(s), Denies loss of vision, Denies memory loss, Denies numbness and Denies tingling Psych Denies anxiety, Denies behavioral changes, Denies depression, Denies memory loss and Denies panic attacks Erasmo/Lymph Denies easy bleeding and Denies easy bruising Aller/Immun Denies wheezing Physical exam (Primary Care) Vital Signs: Last Vital Signs Pulse 71 07/01/25 15:11 BP 116/64 07/01/25 15:11 Pulse Ox 96 07/01/25 15:11 Oxygen Delivery Method Room Air 07/01/25 15:11 BMI result Body Mass Index 29.1 Tobacco/Smoking Status: Tobacco use Status Tobacco use date assessed 07/01/25 07/01/25 15:14 Patient Tobacco Use Status Former Tobacco user 07/01/25 15:14 Tobacco use type 12/31/23 14:00 e-Cigarette/Vaping Use Never Used 07/01/25 15:14 PHQ-9: PHQ-9 Score PHQ-9: Total score 0 07/01/25 15:14 Depression Screening Interpretation: Negative Thrive Assessment: Date of Thrive Assessment Date Thrive assessed 07/01/25 07/01/25 15:14 Currently or been in a relationship where the following occur: No concerns reported Const General: healthy appearing, no acute distress, alert and awake Nutritional Appearance: well nourished Orientation/consciousness: oriented to person, oriented to place and oriented to time HENMT Ears: TM's normal bilaterally General nose exam: Normal nasal mucous membranes and turbinates present Eyes Conjunctivae: conjunctivae normal Sclerae: sclerae normal Pupils: Equal, round and reactive pupils present Neck Neck: Yes no lymphadenopathy and Yes no JVD Thyroid: Thyroid normal Carotids: no bruits Resp Effort & Inspection: normal respiratory effort and not tachypneic Auscultation: no crackles, no rales, no rhonchi and no wheezes Cardio Rate: regular rate Rhythm: regular rhythm Heart sounds: no murmurs and normal S1 and S2 GI Palpation (GI): Soft to palpation, nontender, no hepatomegaly and no splenomegaly Auscultation: normal bowel sounds Skin General skin exam: no rashes or lesions noted and dry skin Neuro General: oriented to person, oriented to place and oriented to time Cranial nerves: Yes Equal, round and reactive pupils present Speech: No Abnormal speech present Gait exam (Neuro): Normal gait present Motor exam (neuro): no tremor noted Extrem Right upper extremity: full ROM Left upper extremity: full ROM Right lower extremity: full ROM; no edema Left lower extremity: full ROM; no edema Psych Mental Status: mental status grossly normal Speech and movement: Normal speech and movement present Affect: normal affect Attitude: cooperative Thought process: Normal thought process present Coding Level of Care Code Est Pt Level 4 (37780) Diagnoses Primary hypertension I10 Hypertension type: primary hypertension Oral cancer C06.9 Hypothyroidism, unspecified type E03.9 Hypothyroidism type: unspecified Hip pain, left M25.552 Borderline high cholesterol E78.9 Assessment & Plan Assessment & Plan (1) HTN (hypertension): Code(s): I10 - Essential (primary) hypertension Category: Medical Qualifiers: Hypertension type: primary hypertension Qualified Code(s): I10 - Essential (primary) hypertension Plan: Patient's blood pressure acceptable today in office. She will continue her current dose lisinopril with goal blood pressure to remain below 140/90 (2) Oral cancer: Code(s): C06.9 - Malignant neoplasm of mouth, unspecified Category: Medical Plan: Patient is status post radiation and surgical excision in 2023.. As per HPI patient continues to follow [facility] and continues under surveillance for recurrent malignancy in her mouth. (3) Hypothyroid: Code(s): E03.9 - Hypothyroidism, unspecified Category: Medical Qualifiers: Hypothyroidism type: unspecified Qualified Code(s): E03.9 - Hypothyroidism, unspecified Plan: Most recent TSH slightly elevated at 4.1. She continues on levothyroxine 50 mcg. Will recheck TSH to ensure stable. She does report having a bit of trouble losing weight (4) Hip pain, left: Code(s): M25.552 - Pain in left hip Category: Medical Plan: To address the patient's chronic left hip pain and functional limitations post- arthroplasty, an X-ray of the left hip will be ordered to assess the hardware and alignment. Referral for physical therapy to improve strength is also an option. For weight management, we discussed lifestyle modifications, and I recommended exploring low-impact exercise such as swimming or biking. (5) Borderline high cholesterol: Code(s): E78.9 - Disorder of lipoprotein metabolism, unspecified Category: Medical Plan: Will recheck patient's fasting lipid panel Orders: Orders Comprehensive [place]. Panel Fast Today I10 - Essential (primary) hypertension TSH reflex Free T4 Today E03.9 - Hypothyroidism, unspecified Complete Blood Count no Diff Today D75.1 - Secondary polycythemia Microalbumin, Random (w Creat) Today I10 - Essential (primary) hypertension XR hip LT min 2V Today M25.552 - Pain in left hip Lipid Panel Today E78.9 - Disorder of lipoprotein metabolism, unspecified Medications: Discontinued benzonatate Discontinued Reason: Doctor's Order 100 mg PO BID PRN 20 caps 0RF cough
--- OUTSIDE RECORDS SUMMARY | 2025-07-01 20:24 | XMS_ITS | Encounter Summary ---
Author Organization [facility] Address [address] [facility] [address] [place] [address] Phone Care Team Providers Care Marina Sales And Service Supervisor Name Role Phone Ramon Agrawal Primary Care Provider + Pedro Shahid DO Unavailable [phone] Ariel Ken MD Unavailable [phone] Roni Ordonez MD, FACS Unavailable [phone] Encounter Details Date Type Department Care Team (Late st Contact Info) Description 07/24/2023 Ancillary Orders [facility] - Ultrasound, Main [place] [address] [place] [address] Roni Ordonez MD, FACS [address] [place] [address] [email or web address] Enlarged lymph nodes (Primary Dx) Social History Tobacco Use Types Packs/Day Years Used Date Smoking Tobacco: Every Day Cigarettes 0.3 51.9 Started: 1974 Smokeless Tobacco: Never Comments:Quit for [...] Visit [facility] [address] [place] [address] Roni Ordonez MD, FACS [address] [place] [address] [email or web address] documented as of this encounter Visit Diagnoses Diagnosis Enlarged lymph nodes- Primary Enlargement of lymph nodes documented in this encounter Care Teams Marina Sales And Service Supervisor Relationship Specialty Start Date End Date Ramon Agrawal PA [address] [place] [address] PCP - General Physician Metal Fabrication Supervisor 01/08/23 Pedro Shahid DO [address] [place] [address] [email or web address] Primary Oncologist Hematology and Oncology 01/08/23 Ariel Ken MD [address] [place] [address] [email or web address] 01/14/23 Roni Ordonez MD, FACS [address] [place] [address] [email or web address] Otolaryngology 01/18/23 documented as of this encounter Additional Source Comments The information contained in this document represents components of the legal health record. It is not the complete legal health record.[facility]
--- OUTSIDE RECORDS SUMMARY | 2025-07-01 20:24 | XMS_ITS | Encounter Summary ---
Author Organization [facility] Address [address] [facility] [address] [place] [address] Phone Care Team Providers Care Ground Support Equipment Assembler Name Role Phone Ramon Agrawal Primary Care Provider + Pedro Shahid DO Unavailable [phone] Ariel Ken MD Unavailable [phone] Roni Ordonez MD, FACS Unavailable [phone] Encounter Details Date Type Department Care Team (Late st Contact Info) Description 11/19/2023 Procedure Pass [facility] Cardiovascular And Interventional Radiology [address] [place] [address] Social History Tobacco Use Types Packs/Day Years [...] Description 07/16/2025 11:00 AM EST Office Visit [facility] Cancer Division [address] [place] [address] Roni Ordonez MD, FACS [address] [place] [address] [email or web address] [email or web address] documented as of this encounter Visit Diagnoses Not on filedocumented in this encounter Care Teams Ground Support Equipment Assembler Relationship Specialty Start Date End Date Ramon Agrawal PA [address] [place] [address] PCP - General Physician Speech Correction Consultant 01/08/23 Pedro Shahid DO 30 [place] [address] [email or web address] [email or web address] Primary Oncologist Hematology and Oncology 01/08/23 Ariel Ken MD [facility]6 [place] [address] [email or web address] 01/14/23 Roni Ordonez MD, FACS [address] [place] [address] [email or web address] sale [email or web address] Otolaryngology 01/18/23 documented as of this encounter Additional Source Comments The information contained in this document represents components of the legal health record. It is not the complete legal health record.[facility]
--- OUTSIDE RECORDS SUMMARY | 2025-07-01 20:24 | XMS_ITS | Clinical Summary ---
Author Organization [facility] ity Address [address] [place] [address] Care Team Providers Care Activities Aide Name Role Phone Unavailable Primary Care Provider [...] Depression Screening 08/12/2024 COVID-19 Vaccine (1 - 2024-2 6 season) 2025 Influenza Vaccine (#1) 2025 RSV [...]
--- OUTSIDE RECORDS SUMMARY | 2025-07-01 20:24 | XMS_ITS | Encounter Summary ---
Author Organization [facility] Address [address] [facility] [address] [place] [address] Phone Care Team Providers Care User Support Specialist Name Role Phone Ramon Agrawal Primary Care Provider + Pedro Shahid DO Unavailable [phone] Ariel Ken MD Unavailable [phone] Roni Ordonez MD, FACS Unavailable [phone] Encounter Details Date Type Department Care Team (Late st Contact Info) Description 11/20/2023 Procedure Pass [facility] Cardiovascular And Interventional Radiology 30 [place] [address] Social History Tobacco Use Types Packs/Day Years [...] 11:00 AM EST Office Visit [facility] [address] [place] [address] Roni Ordonez MD, FACS [address] [place] [address] Earl@[email or web address] documented as of this encounter Visit Diagnoses Not on filedocumented in this encounter Care Teams User Support Specialist Relationship Specialty Start Date End Date Ramon Agrawal PA [address] [place] [address] PCP - General Physician Farmworker Field Crop 01/08/23 Pedro Shahid DO [address] [place] [address] LESLIE@[email or web address] [facility] Primary Oncologist Hematology and Oncology 01/08/23 Ariel Ken MD [facility]6 [place] [address] Sarah@[employer] spring internship 01/14/23 Roni Ordonez MD, FACS [address] [place] [address] Earl@[email or web address] Otolaryngology 01/18/23 documented as of this encounter Additional Source Comments The information contained in this document represents components of the legal health record. It is not the complete legal health record.[facility]
--- OUTSIDE RECORDS SUMMARY | 2025-07-01 20:24 | XMS_ITS | Encounter Summary ---
Author Organization [facility] Address 399 [facility] [address] [place] [address] Phone Care Team Providers Care Boom Tender Name Role Phone Ramon Agrawal Primary Care Provider + Pedro Shahid DO Unavailable [phone] Ariel Ken MD Unavailable [phone] Roni Ordonez MD, FACS Unavailable [phone] Encounter Details Date Type Department Care Team (Late st Contact Info) Description 09/03/2023 Procedure Pass [facility] Cardiovascular And Interventional Radiology 30 [place] [address] Social History Tobacco Use Types Packs/Day Years [...] Description 07/16/2025 11:00 AM EST Office Visit [facility] Head and Neck Cancer Division [address] [place] [address] Roni Ordonez MD, FACS [address] [place] [address] Earl@[email or web address] documented as of this encounter Visit Diagnoses Not on filedocumented in this encounter Care Teams Boom Tender Relationship Specialty Start Date End Date Ramon Agrawal PA [address] [place] [address] PCP - General Physician Crop And Soil Technician 01/08/23 Pedro Shahid DO 30 [place] [address] LESLIE@[email or web address] .[facility] Primary Oncologist Hematology and Oncology 01/08/23 Ariel Ken MD [facility]6 [place] [address] Sarah@[email or web address] supervisor motor vehicle assembly 01/14/23 Roni Ordonez MD, FACS [address] [place] [address] Earl@[email or web address] Otolaryngology 01/18/23 documented as of this encounter Additional Source Comments The information contained in this document represents components of the legal health record. It is not the complete legal health record.[facility]
--- OUTSIDE RECORDS SUMMARY | 2025-07-01 20:24 | XMS_ITS | Encounter Summary ---
Author Organization [facility] Address 399 [facility] [address] [place] [address] Phone Care Team Providers Care Ssas Developer Name Role Phone Ramon Agrawal Primary Care Provider + Pedro Shahid DO Unavailable [phone] Ariel Ken MD Unavailable [phone] Roni Ordonez MD, FACS Unavailable [phone] Encounter Details Date Type Department Care Team (Late st Contact Info) Description 12/12/2023 Procedure Pass [facility] Cardiovascular And Interventional Radiology 30 [place] [address] Social History Tobacco Use Types Packs/Day Years [...] Description 07/16/2025 11:00 AM EST Office Visit [facility] Cancer Division [address] [place] [address] Roni Ordonez MD, FACS [address] [place] [address] Earl@[email or web address] documented as of this encounter Visit Diagnoses Not on filedocumented in this encounter Care Teams Ssas Developer Relationship Specialty Start Date End Date Ramon Agrawal PA [address] [place] [address] PCP - General Physician Infectious Disease Technician 01/08/23 Pedro Shahid DO 30 [place] [address] LESLIE@[facility] [facility] Primary Oncologist Hematology and Oncology 01/08/23 Ariel Ken MD [facility]6 [place] [address] Sarah@[employer] foreclosure clerk 01/14/23 Roni Ordonez MD, FACS [address] [place] [address] Earl@[facility] Otolaryngology 01/18/23 documented as of this encounter Additional Source Comments The information contained in this document represents components of the legal health record. It is not the complete legal health record.[facility]
--- OUTSIDE RECORDS SUMMARY | 2025-07-01 20:24 | XMS_ITS | Encounter Summary ---
Author Organization [facility] Address [address] [facility] [address] [place] [address] Phone Care Team Providers Care Biology Instructor Name Role Phone Ramon Agrawal Primary Care Provider + Pedro Shahid DO Unavailable [phone] Ariel Ken MD Unavailable [phone] Roni Ordonez MD, FACS Unavailable [phone] Encounter Details Date Type Department Care Team (Late st Contact Info) Description 11/20/2023 Procedure Pass [facility] Cardiovascular And Interventional Radiology 30 [place] [address] Social History Tobacco Use Types Packs/Day Years [...] Description 07/16/2025 11:00 AM EST Office Visit [facility] Head and Neck Cancer Division [address] [place] [address] Roni Ordonez MD, FACS [address] [place] [address] Earl@[facility] documented as of this encounter Visit Diagnoses Not on filedocumented in this encounter Care Teams Biology Instructor Relationship Specialty Start Date End Date Ramon Agrawal PA [address] [place] [address] PCP - General Physician Instructional Systems Specialist 01/08/23 Pedro Shahid DO 30 [place] [address] LESLIE@[email or web address] .[facility] Primary Oncologist Hematology and Oncology 01/08/23 Ariel Ken MD [facility]6 [place] [address] Sarah@[email or web address] central processing technician 01/14/23 Roni Ordonez MD, FACS [address] [place] [address] Earl@[facility] Otolaryngology 01/18/23 documented as of this encounter Additional Source Comments The information contained in this document represents components of the legal health record. It is not the complete legal health record.[facility]
--- OUTSIDE RECORDS SUMMARY | 2025-07-01 20:25 | XMS_ITS | Encounter Summary ---
Author Organization [facility] Address 399 [facility] [address] [place] [address] Phone Care Team Providers Care Shuttleless Loom Weaver Name Role Phone Ramon Agrawal Primary Care Provider + Pedro Shahid DO Unavailable [phone] Ariel Ken MD Unavailable [phone] Roni Ordonez MD, FACS Unavailable [phone] Encounter Details Date Type Department Care Team (Late st Contact Info) Description 07/18/2023 Procedure Pass [facility] MAIN PERIOP DEPT [address] [place] [address] Social History Tobacco Use Types Packs/Day Years [...] [facility] Ne[facility] Cancer [facility] [address] [place] [address] Roni Ordonez MD, FACS 243 [place] [address] Earl@[email or web address] documented as of this encounter Visit Diagnoses Not on filedocumented in this encounter Care Teams Shuttleless Loom Weaver Relationship Specialty Start Date End Date Ramon Agrawal PA [address] [place] [address] PCP - General Physician Metals Sales Representative 01/08/23 Pedro Shahid DO [address] [place] [address] LESLIE@[facility] Primary Oncologist Hematology and Oncology 01/08/23 Ariel Ken MD [address] [place] [address] Sarah@[employer] [email or web address] engineer 01/14/23 Roni Ordonez MD, FACS [address] [place] [address] Earl@[email or web address] Otolaryngology 01/18/23 documented as of this encounter Additional Source Comments The information contained in this document represents components of the legal health record. It is not the complete legal health record.[facility]
--- OUTSIDE RECORDS SUMMARY | 2025-07-01 20:25 | XMS_ITS | Encounter Summary ---
Author Organization [facility] Address [address] [facility] [address] [place] [address] Phone Care Team Providers Care Coating Technician Name Role Phone Ramon Agrawal Primary Care Provider + Pedro Shahid DO Unavailable [phone] Ariel Ken MD Unavailable [phone] Roni Ordonez MD, FACS Unavailable [phone] Encounter Details Date Type Department Care Team (Late st Contact Info) Description 04/03/2023 Procedure Pass [facility] Imaging - CT Main [place] [address] [place] [address] Social History Tobacco Use Types Packs/Day Years Used Date Smoking Tobacco: Every Day Cigarettes 0.3 51.9 Started: 1974 Smokeless Tobacco: Never Alcohol Use [...] [facility] Ne[facility] Cancer Division 243 [place] [address] Roni Ordonez MD, FACS [address] [place] [address] Earl@[email or web address] documented as of this encounter Visit Diagnoses Not on filedocumented in this encounter Care Teams Coating Technician Relationship Specialty Start Date End Date Ramon Agrawal PA [address] [place] [address] PCP - General Physician Associate Director Financial Aid 01/08/23 Pedro Shahid DO [address] [place] [address] LESLIE@[email or web address] Primary Oncologist Hematology and Oncology 01/08/23 Ariel Ken MD [address] [place] [address] Sarah@[email or web address] honeycomb decapper 01/14/23 Roni Ordonez MD, FACS [address] [place] [address] Earl@[email or web address] Otolaryngology 01/18/23 documented as of this encounter Additional Source Comments The information contained in this document represents components of the legal health record. It is not the complete legal health record.[facility]
--- OUTSIDE RECORDS SUMMARY | 2025-07-01 20:25 | XMS_ITS | Clinical Summary ---
Author Organization [facility] Address [address] [address] Phone Care Team Providers Care Tire Retreader Name Role Phone Ramon Agrawal Primary Care Provider + Pedro Shahid DO Unavailable [phone] Ariel Ken MD Unavailable [phone] Roni Ordonez MD, FACS Unavailable [phone] Allergies Active Allergy Reactions Criticality Noted Date [...] 07/18/2023 Cancer of head and neck 03/19/2023 Immunizations Immunization Administration Dates Next Due Influenza [...] 07/16/2025 11:00 AM EST Office [facility] Cancer Division [address] [place] [address] Roni Ordonez MD, FACS [address] [place] [address] [email or web address] Health Maintenance Due Date Last Done [...] this topic Medical Devices Implanted Type Area Corporate Auditor Device Identifier Shelf Expiration Date Model / Serial / Lot Left Thr Procedures Procedure Name Priority Date/Time Associated Diagnosis Comments COMPREHENSIVE METABOLIC PANEL (CMP) Routine 08/30/2023 12:32 PM EST Oropharyngeal cancer from Last 3 Months or Most Recently Relevant to Health Maintenance Results * (ABNORMAL) Comprehensive metabolic panel (08/30/2023 12:32 PM EST) SODIUM 141 133 - 146 mmol/L [facility] POTASSIUM 3.6 3.3 - 5.1 mmol/L [facility] CHLORIDE 100 96 - 108 mmol/L [facility] CO2 29 21 - 35 mmol/L [facility] BUN 15 6 - 19 mg/dL [facility] CREATININE 0.60 0.5 - 1.5 mg/dL [facility] GLUCOSE 48(LL) 70 - 99 mg/dL [facility] Comment: Critical value: Results called to and read back by: DOUG Raymond AT 1847 ALBUMIN 4.3 3.9 - 4.8 g/dL [facility] TOTAL PROTEIN 7.4 6.5 - 8.0 g/dL [facility] CALCIUM 9.7 8.4 - 10.3 mg/dL [facility] ALKALINE PHOSPHATASE 104 39 - 117 U/L [facility] TOTAL BILIRUBIN 0.3 0.0 - 1.2 mg/dL [facility] AST 16 0 - 37 U/L [facility] ALT 11 0 - 40 U/L [facility] GLOBULIN 3.1 1 - 4.8 g/dL [facility] EGFR 97 >59 mL/min/1.7 3m2 [facility] Comment:Estimated glomerular filtration rate calculated using the CKD-EPI refit equation. ANION GAP 16 10 - 20 mmol/L [facility] Blood 08/30/2023 12:3 2 PM EST 08/30/2023 12:36 PM EST us Doug Handy MD LAB BLOOD BKR ORDERABLES Final Result Performing Organization Address City/State/[facility] Co de Phone Number [facility] [address] [place] [address] from Last 3 Months or Most Recently Relevant to Health Maintenance Insurance MEDICARE PPO BLUE [place]AC[place] [address] [address] MEDICARE PPO BLUE REPLACEMENT MEDICARE PPO BLUE REPLACEMENT MEDICARE PPO BLUE REPLACEMENT MEDICARE PPO BLUE RE[place]AC[place] MEDIC[place] P[place] BLUE REPLACEMENT Advance Directives For more information, please contact: [phone] (9AM - 5PM [place]/[facility], Saturday-Saturday) Documents on File Type Date Recorded Patient Cardiac Monitor Expl anation Healthcare Proxy 07/22/2023 3:07 PM * Full Code (Latest Code Status on File) Date Activated Date Inactivated Comments 03/19/2023 3:56 PM Question Answer Comments Code Status Confirmed With: Patient Care Teams Tire Retreader Relationship Specialty Start Date End Date Ramon Agrawal PA [address] [place] [address] PCP - General Physician Prosthetist 01/08/23 Pedro Shahid DO [address] [place] [address] LESLIE@[facility] Primary Oncologist Hematology and Oncology 01/08/23 Ariel Ken MD [address] [place] [address] Sarah@[email or web address] superintendent division 01/14/23 Roni Ordonez MD, FACS [address] [place] [address] Earl@[facility] Otolaryngology 01/18/23 Additional Source Comments The information contained in this document represents components of the legal health record. It is not the complete legal health record.[facility]
--- OUTSIDE RECORDS SUMMARY | 2025-07-01 20:25 | XMS_ITS | Encounter Summary ---
Author Organization [facility] Address 399 [facility] [address] [place] [address] Phone Care Team Providers Care Grooming Assistant Name Role Phone Ramon Agrawal Primary Care Provider + Pedro Shahid DO Unavailable [phone] Ariel Ken MD Unavailable [phone] Roni Ordonez MD, FACS Unavailable Encounter Details Date Type Department Care Team (Late st Contact Info) Description 04/03/2023 Procedure Pass [facility] Imaging - CT Main [place] 243 [place] [address] Social History Tobacco Use Types Packs/Day Years [...] [facility] Neck Cancer Division [address] [place] [address] Roni Ordonez MD, FACS [address] [place] [address] Earl@[facility] documented as of this encounter Visit Diagnoses Not on filedocumented in this encounter Care Teams Grooming Assistant Relationship Specialty Start Date End Date Ramon Agrawal PA [address] [place] [address] PCP - General Physician Industrial Economics Teacher 01/08/23 Pedro Shahid DO [address] [place] [address] LESLIE@[facility] Primary Oncologist Hematology and Oncology 01/08/23 Ariel Ken MD [address] [place] [address] Sarah@[email or web address] lawn care worker 01/14/23 Roni Ordonez MD, FACS [address] [place] [address] Earl@[facility] Otolaryngology 01/18/23 documented as of this encounter Additional Source Comments The information contained in this document represents components of the legal health record. It is not the complete legal health record.[facility]
--- OUTSIDE RECORDS SUMMARY | 2025-07-01 20:25 | XMS_ITS | Encounter Summary ---
Author Organization [facility] Address 399 [facility] [address] [place] [address] Phone Care Team Providers Care Staff Research Scientist Name Role Phone Ramon Agrawal Primary Care Provider + Pedro Shahid DO Unavailable [phone] Ariel Ken MD Unavailable [phone] Roni Ordonez MD, FACS Unavailable [phone] Encounter Details Date Type Department Care Team (Late st Contact Info) Description 03/27/2024 Procedure Pass [facility] Imaging - CT Main [place] 243 [place] [address] Social History Tobacco Use Types Packs/Day Years [...] AM EST Office Visit [facility] and Neck Cancer Division [address] [place] [address] Roni Ordonez MD, FACS [address] [place] [address] Earl@[email or web address] [place] documented as of this encounter Visit Diagnoses Not on filedocumented in this encounter Care Teams Staff Research Scientist Relationship Specialty Start Date End Date Ramon Agrawal PA [address] [place] [address] PCP - General Physician Palm And Back Forger 01/08/23 Pedro Shahid DO 30 [place] [address] LESLIE@[email or web address].[place] .[facility] Primary Oncologist Hematology and Oncology 01/08/23 Ariel Ken MD [facility]6 [place] [address] Sarah@[email or web address] bar staff 01/14/23 Roni Ordonez MD, FACS [address] [place] [address] Earl@[facility] [place] [place].[facility] Otolaryngology 01/18/23 documented as of this encounter Additional Source Comments The information contained in this document represents components of the legal health record. It is not the complete legal health record.[facility]
--- OUTSIDE RECORDS SUMMARY | 2025-07-01 20:25 | XMS_ITS | Encounter Summary ---
Author Organization [facility] Address [address] [facility] [address] [place] [address] Phone Care Team Providers Care Director Museum Or Zoo Name Role Phone Ramon Agrawal Primary Care Provider + Pedro Shahid DO Unavailable [phone] Ariel Ken MD Unavailable [phone] Roni Ordonez MD, FACS Unavailable Encounter Details Date Type Department Care Team (Late st Contact Info) Description 07/20/2024 Procedure Pass [facility] Imaging - CT Main [place] 243 [place] [address] Social History Tobacco Use Types Packs/Day Years [...] 07/16/2025 11:00 AM EST Office [place] [facility] [address] [place] [address] Roni Ordonez MD, FACS [address] [place] [address] Earl@[facility] documented as of this encounter Visit Diagnoses Not on filedocumented in this encounter Care Teams Director Museum Or Zoo Relationship Specialty Start Date End Date Ramon Agrawal PA [address] [place] [address] PCP - General Physician Internal Wholesaler 01/08/23 Pedro Shahid DO 30 [place] [address] LESLIE@[facility] [place] .[facility] Primary Oncologist Hematology and Oncology 01/08/23 Ariel Ken MD [facility]6 [place] [address] Sarah@[email or web address] warehouse foreman 01/14/23 Roni Ordonez MD, FACS [address] [place] [address] Earl@[facility] Otolaryngology 01/18/23 documented as of this encounter Additional Source Comments The information contained in this document represents components of the legal health record. It is not the complete legal health record.[facility]
--- OUTSIDE RECORDS SUMMARY | 2025-07-01 20:25 | XMS_ITS | Encounter Summary ---
Author Organization [facility] Address 399 [facility] [address] [place] [address] Phone Care Team Providers Care Flooring Sales Manager Name Role Phone Ramon Agrawal Primary Care Provider + Pedro Shahid DO Unavailable [phone] Ariel Ken MD Unavailable [phone] Roni Ordonez MD, FACS Unavailable [phone] Encounter Details Date Type Department Care Team (Late st Contact Info) Description 03/19/2023 Procedure Pass [facility] MAIN PERIOP DEPT [address] [place] [address] Social History Tobacco Use Types Packs/Day Years [...] 5:18 PM EDT Samira Wheeler RN * [place] Suicide Severity Rating Scale (Screener/Recent Self-Report) Question [...] [place] [facility] [address] [place] [address] Roni Ordonez MD, FACS [address] [place] [address] Earl@[email or web address] documented as of this encounter Visit Diagnoses Not on filedocumented in this encounter Care Teams Flooring Sales Manager Relationship Specialty Start Date End Date Ramon Agrawal PA [address] [place] [address] PCP - General Physician Core Worker 01/08/23 Pedro Shahid DO [address] [place] [address] LESLIE@[facility] [facility] Primary Oncologist Hematology and Oncology 01/08/23 Ariel Ken MD [facility] [place] [address] Sarah@[email or web address] rn outpatient surgery 01/14/23 Roni Ordonez MD, FACS [address] [place] [address] Earl@[facility] Otolaryngology 01/18/23 documented as of this encounter Additional Source Comments The information contained in this document represents components of the legal health record. It is not the complete legal health record.[facility]
--- OUTSIDE RECORDS SUMMARY | 2025-07-01 20:25 | XMS_ITS | Patient Health Record ---
Author Organization [facility] Address [address] [place] [address] Care Team Providers Care Nurse Instructor Name Role Phone Ramon Agrawal Primary Care Provider Olman Miles Jr Unavailable Allergies Allergen (clinical drug ingredient) Drug/Non Drug Allergy documented on EMR Reaction Allergy Type Onset Date Status powder in latex glov es (uncoded) Unknown Allergy Active morphine Morphine Sulfate Unknown Drug Allergy Active Reason For Referral No Information Medications Medication SIG (Take, Route, Frequency, Duration) Notes Start Date End Date Status Vitamin D3 1000 UNIT Tablet 1 tablet Ora lly Once a day Active Calcium 600 MG Tablet 1 tablet with meal s Orally Twice a day Active Golytely 236 GM Solution Reconstituted as directed before colonoscopy Orally every 15 minutes; Duration: 1 day(s) Active Ibuprofen 800 MG Tablet 1 tablet with fo od or milk as needed Orally once a day/as needed Active Flagyl 250 MG Tablet 1 tablet Orally as directed Active Cipro 500 MG Tablet 1 tablet Orally Once a day Active Social History Tobacco Use: Social History Observation Description Date Details (start date - stop date) Current Smoker NA - NA Social History Drugs/Alcohol: Social Info Question Answer Notes Alcohol Screen Did you have a drink containing alcohol in the past year? Yes How often did you have a drink containing alcohol in the past year? 4 or more times a week (4 points) How many drinks did you have on a typical day when you were drinking in the past year? 5 or 6 drinks (2 points) Points 6 Interpretation Positive Tobacco Use: Social Info Question Answer Notes Tobacco Use/Smoking Patient is a current smoker How often do you smoke cigarettes? every day How many cigarettes a day do you smoke? 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 Problems Problem Type SNOMED Code ICD Code Onset Dates Problem Status W/U Status Risk Notes Problem Colon cancer screening (650313860) Colon cancer screening (Z12.11) Active confirmed Problem History of polyp of colon (situation) (966681509) Personal history of colonic polyps (Z86.010) Active confirmed Problem Pre-procedure evaluation check (225375737) Visit for pre-operative examination (Z01.818) Active confirmed Plan Of Treatment Future Test Test Name Order Date COLONOSCOPY 01/16/2018 Insurance Providers Payer Name Payer Address Payer Phone Subscriber Number Group Number Insured Name Patient Relationship to Insured Coverage Start Date Coverage End Date [facility] [address] [place] [address] [phone] [id number] VIC PIMENTEL Self - patient is the insured Medical (General) History Medical History History ICD Code seasonal allergies hx of diverticulitis polycythemia- Dr. Guido Surgical History Surgery Date(Month/Year) wisdom teeth extraction 1972
--- OUTSIDE RECORDS SUMMARY | 2025-07-01 20:25 | XMS_ITS | Encounter Summary ---
Author Organization [facility] Address [address] [facility] [address] [place] [address] Phone Care Team Providers Care Fruit Vendor Name Role Phone Ramon Agrawal Primary Care Provider + Pedro Shahid DO Unavailable [phone] Ariel Ken MD Unavailable [phone] Roin Ordonez MD, FACS Unavailable [phone] Encounter Details Date Type Department Care Team (Late st Contact Info) Description 07/20/2024 Procedure Pass [facility] Main [place] [address] [place] [address] Social History Tobacco Use Types Packs/Day Years [...] 07/16/2025 11:00 AM EST Office Visit [facility] [address] [place] [address] Roni Ordonez MD, FACS [address] [place] [address] [email or web address] documented as of this encounter Visit Diagnoses Not on filedocumented in this encounter Care Teams Fruit Vendor Relationship Specialty Start Date End Date Ramon Agrawal PA [address] [place] [address] PCP - General Physician Bank Accountant 01/08/23 Pedro Shahid DO [address] [place] [address] [email or web address] Primary Oncologist Hematology and Oncology 01/08/23 Ariel Ken MD [facility]6 [place] [address] [email or web address] [email or web address] 01/14/23 Roni Ordonez MD, FACS [address] [place] [address] [email or web address] Otolaryngology 01/18/23 documented as of this encounter Additional Source Comments The information contained in this document represents components of the legal health record. It is not the complete legal health record.[facility]
--- OUTSIDE RECORDS SUMMARY | 2025-07-01 20:25 | XMS_ITS | Encounter Summary ---
Author Organization [facility] Address [address] [facility] [address] [place] [address] Phone Care Team Providers Care Bagger And Stock Handler Helper Name Role Phone Ramon Agrawal Primary Care Provider + Pedro Shahid DO Unavailable [phone] Ariel Ken MD Unavailable [phone] Roni Ordonez MD, FACS Unavailable [phone] Encounter Details Date Type Department Care Team ([facility] Contact Info) Description 01/21/2023 Procedure Pass [facility] - CT Main [place] [address] [place] [address] Social History Tobacco Use Types Packs/Day Years [...] [facility] [address] [place] [address] Roni Ordonez MD, FACS [address] [place] [address] [email or web address] documented as of this encounter Visit Diagnoses Not on filedocumented in this encounter Care Teams Bagger And Stock Handler Helper Relationship Specialty Start Date End Date Ramon Agrawal PA [address] [place] [address] PCP - General Physician Administrative Secretary 01/08/23 Pedro Shahid DO [address] [place] [address] [email or web address] Primary Oncologist Hematology and Oncology 01/08/23 Ariel Ken MD [address] [place] [address] [email or web address] 01/14/23 Roni Ordonez MD, FACS [address] [place] [address] [email or web address] Otolaryngology 01/18/23 documented as of this encounter Additional Source Comments The information contained in this document represents components of the legal health record. It is not the complete legal health record.[facility]
--- OUTSIDE RECORDS SUMMARY | 2025-07-01 20:25 | XMS_ITS | Encounter Summary ---
Author Organization [facility] Address [address] [facility] [address] [place] [address] Phone Care Team Providers Care Reimbursement Representative Name Role Phone Ramon Agrawal Primary Care Provider + Pedro Shahid DO Unavailable [phone] Ariel Ken MD Unavailable [phone] Roni Ordonez MD, FACS Unavailable [phone] Encounter Details Date Type Department Care Team (Late st Contact Info) Description 03/27/2024 Procedure Pass [facility] - CT Main [place] [address] [place] [address] Social History Tobacco Use Types Packs/Day Years [...] Description 07/16/2025 11:00 AM EST Office Visit [facility] [address] [place] [address] Roni Ordonez MD, FACS [address] [place] [address] [email or web address] documented as of this encounter Visit Diagnoses Not on filedocumented in this encounter Care Teams Reimbursement Representative Relationship Specialty Start Date End Date Ramon Agrawal PA [address] [place] [address] PCP - General Physician Ground Wood Supervisor 01/08/23 Pedro Shahid DO [address] [place] [address] [email or web address] Primary Oncologist Hematology and Oncology 01/08/23 Ariel Ken MD [facility]6 [place] [address] [email or web address] 01/14/23 Roni Ordonez MD, FACS [address] [place] [address] [email or web address] Otolaryngology 01/18/23 documented as of this encounter Additional Source Comments The information contained in this document represents components of the legal health record. It is not the complete legal health record.[facility]
--- OUTSIDE RECORDS SUMMARY | 2025-07-01 20:25 | XMS_ITS | Encounter Summary ---
Author Organization [facility] Address [address] [facility] [address] [place] [address] Phone Care Team Providers Care Waistband Setter Lockstitch Name Role Phone Ramon Agrawal Primary Care Provider + Pedro Shahid DO Unavailable [phone] Ariel Ken MD Unavailable [phone] Roni Ordonez MD, FACS Unavailable [phone] Encounter Details Date Type Department Care Team ([facility] Contact Info) Description 01/21/2023 Procedure Pass [facility] - CT Main [place] [address] [place] [address] Social History Tobacco Use Types Packs/Day Years [...] [facility] [address] [place] [address] Roni Ordonez MD, FACS [address] [place] [address] [email or web address] documented as of this encounter Visit Diagnoses Not on filedocumented in this encounter Care Teams Waistband Setter Lockstitch Relationship Specialty Start Date End Date Ramon Agrawal PA [address] [place] [address] PCP - General Physician Two Way Radio Installer 01/08/23 Pedro Shahid DO [address] [place] [address] [email or web address] Primary Oncologist Hematology and Oncology 01/08/23 Ariel Ken MD [address] [place] [address] [email or web address] 01/14/23 Roni Ordonez MD, FACS [address] [place] [address] [email or web address] 01/18/23 documented as of this encounter Additional Source Comments The information contained in this document represents components of the legal health record. It is not the complete legal health record.[facility]
--- OUTSIDE RECORDS SUMMARY | 2025-07-01 20:25 | XMS_ITS ---
Author Organization [facility] Address [address] [facility] [address] [place] [address] Phone Care Team Providers Care Litigation Legal Secretary Name Role Phone Ramon Agrawal Primary Care Provider + Pedro Shahid DO Unavailable [phone] Ariel Ken MD Unavailable [phone] Roni Ordonez MD, FACS Unavailable [phone] Active Problems Patient Care Coordination No te [...]
== END 2025-07-01 15:51 | disposition home or self-care (01) ==
LOC: HO.HMCH 14:56
PROVIDERS: PCP Physician Assistant; Visit Provider Physician Assistant
DX: I10 Essential (primary) hypertension (principal); C06.9 Malignant neoplasm of mouth, unspecified; E03.9 Hypothyroidism, unspecified; M25.552 Pain in left hip; E78.9 Disorder of lipoprotein metabolism, unspecified

== ENCOUNTER → 2025-07-01 14:56 | Outpatient (BNVA) | payer MEDICARE, SELFPAY | PROVIDERS: PCP Physician Assistant; Visit Provider Physician Assistant | DX: I10 Essential (primary) hypertension (principal); E03.9 Hypothyroidism, unspecified; E78.9 Disorder of lipoprotein metabolism, unspecified; C06.9 Malignant neoplasm of mouth, unspecified; M25.552 Pain in left hip | CPT/HCPCS: 96127; 99212 ==